=== PATIENT | male | born 1950 | race Caucasian/White ===

== ENCOUNTER 2020-04-26 08:35 | Outpatient (REF) | payer MEDICARE, OTHER, SELFPAY ==
[2020-04-26 09:55] LABS: Basophils Percent Auto 0.4 % (0-2); Hemoglobin 15.1 g/dl (14.0-18.0); Imm Gran Abs Auto 0.02 X10*3/uL (0.00-0.03); Imm Gran Pct Auto 0.3 % (0.0-0.4); Red Cell Distribution Width 13.2 % (11.0-16.0)
[2020-04-26 09:57] LABS: Eosinophils Absolute Auto 0.1 X10*3/uL (0.0-0.4); Eosinophils Percent Auto 0.9 % (0-4); Hematocrit 46.7 % (42-52); Lymphocytes Absolute Auto 1.8 X10*3/uL (1.2-4.9); Lymphocytes Percent Auto 23.3 % (20-40); Mean Corpuscular HGB Conc 32.3 g/dl (31.0-36.0); Mean Corpuscular Hemoglobin 30.6 pg (27.0-33.0); Mean Corpuscular Volume 94.5 fL (80-98); Monocytes Absolute Auto 0.8 X10*3/uL (0.1-1.2); Monocytes Percent Auto 10.8 % (2-11); Neutrophils Percent Auto 64.3 % (45-73); Platelet Count 184 X10*3/uL (160-400); Red Blood Count 4.94 X10*6/uL (4.60-5.80); White Blood Count 7.7 X10*3/uL (4.8-10.8)
[2020-04-26 10:04] LABS: MANUAL DIFF FLAG NO
[2020-04-26 10:26] LABS: Alanine Aminotransferase 37 U/L (0-40); Albumin Level 4.1 g/dL (3.5-5.0); Alkaline Phosphatase 76 U/L (39-117); Anion Gap 12 (12-20); Aspartate Amino Transferase 25 U/L (5-37); Bilirubin Total 0.6 mg/dL (0.0-1.0); Blood Urea Nitrogen 23 mg/dL (9-16); Calcium 8.9 mg/dL (8.4-10.2); Carbon Dioxide 29 mmol/L (22-29); Chloride 103 mmol/L (96-108); Cholesterol 193 mg/dL; Estimated Glomerular Filt Rate > 60; Glucose Fasting 90 mg/dL (60-99); HDL Cholesterol 46 mg/dL; LDL Cholesterol Calculated 104 mg/dl; Potassium 4.3 mmol/l (3.3-5.1); Sodium 140 mmol/L (135-145); Total Protein 6.6 g/dL (6.5-8.0); Triglycerides 216 mg/dL
[2020-04-26 10:27] LABS: Glucose Urine UA NEG (NEG); Leukocyte Esterase Urine NEG (NEG); Nitrite Urine NEG (NEG); Specific Gravity - Urine 1.025 (1.005-1.025); Urine Blood NEG (NEG); Urine Ketones NEG (NEG); Urine Protein NEG (NEG-TRACE)
[2020-04-26 10:29] LABS: Appearance Urine CLEAR; Color Urine YELLOW
[2020-04-26 10:32] LABS: Estimated Average Glucose 117 mg/dL; Hemoglobin A1C 151.0047 umol/L; Hemoglobin A1c % 5.7 %
[2020-04-26 10:34] LABS: TSH reflex Free T4 1.16 mIU/mL (0.32-4.0); Vitamin D 25-OH Total 44.3 ng/mL (>30)
== END 2020-04-26 08:36 | disposition home or self-care (01) ==
LOC: HO.LAB 08:35
PROVIDERS: PCP Internal Medicine; Visit Provider Internal Medicine
DX: E78.5 Hyperlipidemia, unspecified (principal); I10 Essential (primary) hypertension; R73.01 Impaired fasting glucose; I25.10 Atherosclerotic heart disease of native coronary artery without angina pectoris; K21.9 Gastro-esophageal reflux disease without esophagitis; E55.9 Vitamin D deficiency, unspecified; E66.3 Overweight
CPT/HCPCS: 36415; 80053; 80061; 81003; 82306; 83036; 84443; 85025; 87086

== ENCOUNTER 2020-08-23 06:56 | Outpatient (REF) | payer MEDICARE, OTHER, SELFPAY ==
[2020-08-23 08:25] LABS: MANUAL DIFF FLAG SCAN; Mean Corpuscular Hemoglobin 30.6 pg (27.0-33.0); Platelet Count 174 X10*3/uL (160-400); Red Cell Distribution Width 13.4 % (11.0-16.0); SCAN SMEAR FLAG 1
[2020-08-23 08:27] LABS: Basophils Percent Auto 0.4 % (0-2); Eosinophils Absolute Auto 0.1 X10*3/uL (0.0-0.4); Hemoglobin 15.5 g/dl (14.0-18.0); Imm Gran Abs Auto 0.02 X10*3/uL (0.00-0.03); Imm Gran Pct Auto 0.2 % (0.0-0.4); Lymphocytes Absolute Auto 2.1 X10*3/uL (1.2-4.9); Lymphocytes Percent Auto 25.1 % (20-40); Mean Corpuscular HGB Conc 31.6 g/dl (31.0-36.0); Mean Corpuscular Volume 96.8 fL (80-98); Mean Platelet Volume 13.1 fL (9.4-12.4); Neutrophils Percent Auto 61.3 % (45-73); Red Blood Count 5.06 X10*6/uL (4.60-5.80); White Blood Count 8.2 X10*3/uL (4.8-10.8)
[2020-08-23 08:35] LABS: PLT ABN DIST 1
[2020-08-23 08:36] LABS: Glucose Urine UA NEG (NEG); Leukocyte Esterase Urine NEG (NEG); Nitrite Urine NEG (NEG); PH 5.5 (5.0-8.0); Specific Gravity - Urine >= 1.030 (1.005-1.025); Urine Blood NEG (NEG); Urine Ketones NEG (NEG); Urine Protein NEG (NEG-TRACE)
[2020-08-23 08:39] LABS: Appearance Urine CLEAR; Color Urine YELLOW
[2020-08-23 09:42] LABS: Alanine Aminotransferase 52 U/L (0-40); Albumin Level 4.1 g/dL (3.5-5.0); Alkaline Phosphatase 94 U/L (39-117); Anion Gap 12 (12-20); Aspartate Amino Transferase 35 U/L (5-37); Bilirubin Total 0.4 mg/dL (0.0-1.0); Blood Urea Nitrogen 21 mg/dL (9-16); Calcium 9.1 mg/dL (8.4-10.2); Carbon Dioxide 31 mmol/L (22-29); Chloride 106 mmol/L (96-108); Cholesterol 184 mg/dL; Estimated Glomerular Filt Rate > 60; Glucose Fasting 98 mg/dL (60-99); HDL Cholesterol 50 mg/dL; LDL Cholesterol Calculated 97 mg/dl; Potassium 5.1 mmol/L (3.3-5.1); Sodium 144 mmol/L (135-145); Total Protein 6.6 g/dL (6.5-8.0); Triglycerides 188 mg/dL
[2020-08-23 09:54] LABS: Vitamin D 25-OH Total 41.2 ng/mL (>30)
[2020-08-23 09:55] LABS: TSH reflex Free T4 1.53 uIU/mL (0.32-4.0)
[2020-08-23 09:59] LABS: Estimated Average Glucose 111 mg/dL; Hemoglobin A1c % 5.5 %
== END 2020-08-23 06:57 | disposition home or self-care (01) ==
LOC: HO.LAB 06:56
PROVIDERS: PCP Internal Medicine; Visit Provider Internal Medicine
DX: I10 Essential (primary) hypertension (principal); E78.00 Pure hypercholesterolemia, unspecified; F17.200 Nicotine dependence, unspecified, uncomplicated; I25.10 Atherosclerotic heart disease of native coronary artery without angina pectoris; K21.9 Gastro-esophageal reflux disease without esophagitis; R73.01 Impaired fasting glucose; E66.3 Overweight; E55.9 Vitamin D deficiency, unspecified; Z85.46 Personal history of malignant neoplasm of prostate
CPT/HCPCS: 36415; 80053; 80061; 81003; 82306; 83036; 84443; 85025

== ENCOUNTER 2020-12-22 07:10 | Outpatient (REF) | payer MEDICARE, OTHER, SELFPAY ==
[2020-12-22 09:02] LABS: Glucose Urine UA NEG (NEG); Leukocyte Esterase Urine NEG (NEG); Nitrite Urine NEG (NEG); Specific Gravity - Urine >= 1.030 (1.005-1.025); Urine Blood NEG (NEG); Urine Ketones NEG (NEG); Urine Protein NEG (NEG-TRACE)
[2020-12-22 09:05] LABS: Appearance Urine CLEAR; Color Urine YELLOW
[2020-12-22 09:08] LABS: Basophils Percent Auto 0.3 % (0-2); Eosinophils Absolute Auto 0.1 X10*3/uL (0.0-0.4); Eosinophils Percent Auto 1.5 % (0-4); Hematocrit 46.7 % (42-52); Imm Gran Abs Auto 0.02 X10*3/uL (0.00-0.03); Imm Gran Pct Auto 0.3 % (0.0-0.4); Lymphocytes Absolute Auto 1.7 X10*3/uL (1.2-4.9); Lymphocytes Percent Auto 24.9 % (20-40); MANUAL DIFF FLAG SCAN; Mean Corpuscular HGB Conc 32.1 g/dl (31.0-36.0); Mean Corpuscular Hemoglobin 29.9 pg (27.0-33.0); Mean Corpuscular Volume 93.2 fL (80-98); Monocytes Absolute Auto 0.8 X10*3/uL (0.1-1.2); Monocytes Percent Auto 12.2 % (2-11); Neutrophils Absolute Auto 4.2 X10*3/uL (2.0-8.3); Neutrophils Percent Auto 60.8 % (45-73); PLT CLUMP 1; Red Blood Count 5.01 X10*6/uL (4.60-5.80); Red Cell Distribution Width 13.3 % (11.0-16.0); SCAN SMEAR FLAG 1
[2020-12-22 09:29] LABS: Platelet Count 157 X10*3/uL (160-400); SLIDE REVIEW VERIFIED; White Blood Count 6.9 X10*3/uL (4.8-10.8)
[2020-12-22 09:40] LABS: Alanine Aminotransferase 33 U/L (0-40); Alkaline Phosphatase 80 U/L (39-117); Anion Gap 12 (12-20); Aspartate Amino Transferase 24 U/L (5-37); Bilirubin Total 0.5 mg/dL (0.0-1.0); Blood Urea Nitrogen 22 mg/dL (9-16); Calcium 8.8 mg/dL (8.4-10.2); Carbon Dioxide 25 mmol/L (22-29); Chloride 107 mmol/L (96-108); Cholesterol 179 mg/dL; Estimated Glomerular Filt Rate > 60; Glucose Fasting 95 mg/dL (60-99); HDL Cholesterol 42 mg/dL; LDL Cholesterol Calculated 92 mg/dl; Potassium 4.2 mmol/L (3.3-5.1); Sodium 140 mmol/L (135-145); Total Protein 6.3 g/dL (6.5-8.0); Triglycerides 229 mg/dL
[2020-12-22 10:03] LABS: TSH reflex Free T4 1.52 uIU/mL (0.32-4.0); Vitamin D 25-OH Total 43.6 ng/mL (>30)
== END 2020-12-22 07:11 | disposition home or self-care (01) ==
LOC: HO.LAB 07:10
PROVIDERS: PCP Internal Medicine; Visit Provider Internal Medicine
DX: I10 Essential (primary) hypertension (principal); K21.9 Gastro-esophageal reflux disease without esophagitis; I25.10 Atherosclerotic heart disease of native coronary artery without angina pectoris; F17.200 Nicotine dependence, unspecified, uncomplicated; E78.00 Pure hypercholesterolemia, unspecified; R73.01 Impaired fasting glucose; E66.3 Overweight; E55.9 Vitamin D deficiency, unspecified
CPT/HCPCS: 36415; 80053; 80061; 81003; 82306; 84443; 85025

== ENCOUNTER 2021-04-26 07:29 | Outpatient (REF) | payer MEDICARE, OTHER, SELFPAY ==
[2021-04-26 08:01] LABS: Mean Corpuscular HGB Conc 32.3 g/dl (31.0-36.0); Mean Corpuscular Hemoglobin 30.3 pg (27.0-33.0); Red Cell Distribution Width 13.1 % (11.0-16.0); SCAN SMEAR FLAG 1
[2021-04-26 08:03] LABS: Basophils Percent Auto 0.3 % (0-2); Eosinophils Absolute Auto 0.1 X10*3/uL (0.0-0.4); Eosinophils Percent Auto 1.2 % (0-4); Hematocrit 46.4 % (42.0-52.0); Imm Gran Abs Auto 0.01 X10*3/uL (0.00-0.03); Imm Gran Pct Auto 0.2 % (0.0-0.4); Lymphocytes Absolute Auto 1.7 X10*3/uL (1.2-4.9); MANUAL DIFF FLAG SCAN; Mean Corpuscular Volume 93.7 fL (80.0-98.0); Monocytes Absolute Auto 0.7 X10*3/uL (0.1-1.2); Monocytes Percent Auto 11.4 % (2-11); Neutrophils Percent Auto 60.9 % (45-73); PLT CLUMP 1; Red Blood Count 4.95 X10*6/uL (4.60-5.80)
[2021-04-26 08:09] LABS: PLT ABN DIST 1; White Blood Count 6.5 X10*3/uL (4.8-10.8)
[2021-04-26 08:16] LABS: Estimated Average Glucose 120 mg/dL; Hemoglobin A1c % 5.8 %
[2021-04-26 08:24] LABS: Platelet Count 161 X10*3/uL (160-400); SLIDE REVIEW VERIFIED
[2021-04-26 08:28] LABS: Alanine Aminotransferase 37 U/L (0-40); Alkaline Phosphatase 100 U/L (39-117); Anion Gap 13 (12-20); Aspartate Amino Transferase 27 U/L (5-37); Bilirubin Total 0.7 mg/dL (0.0-1.0); Blood Urea Nitrogen 17 mg/dL (9-16); Calcium 9.2 mg/dL (8.4-10.2); Carbon Dioxide 27 mmol/L (22-29); Chloride 104 mmol/L (96-108); Cholesterol 152 mg/dL; Estimated Glomerular Filt Rate > 60; Glucose Fasting 94 mg/dL (60-99); HDL Cholesterol 35 mg/dL; LDL Cholesterol Calculated 81 mg/dl; Potassium 4.2 mmol/L (3.3-5.1); Sodium 140 mmol/L (135-145); Total Protein 6.5 g/dL (6.5-8.0); Triglycerides 182 mg/dL
[2021-04-26 08:33] LABS: Appearance Urine CLEAR; Color Urine YELLOW; Glucose Urine UA NEG (NEG); Leukocyte Esterase Urine NEG (NEG); Nitrite Urine NEG (NEG); PH 5.5 (5.0-8.0); Specific Gravity - Urine >= 1.030 (1.005-1.025); Urine Blood NEG (NEG); Urine Ketones NEG (NEG); Urine Protein NEG (NEG-TRACE)
[2021-04-26 08:48] LABS: TSH reflex Free T4 1.64 uIU/mL (0.32-4.0); Vitamin D 25-OH Total 48.2 ng/mL (>30)
== END 2021-04-26 07:30 | disposition home or self-care (01) ==
LOC: HO.LAB 07:29
PROVIDERS: PCP Internal Medicine; Visit Provider Internal Medicine
DX: R73.01 Impaired fasting glucose (principal); I10 Essential (primary) hypertension; E78.00 Pure hypercholesterolemia, unspecified; E55.9 Vitamin D deficiency, unspecified
CPT/HCPCS: 36415; 80053; 80061; 81003; 82306; 83036; 84443; 85025

== ENCOUNTER 2021-09-01 06:02 | Outpatient (REF) | payer MEDICARE, OTHER, SELFPAY ==
[2021-09-01 07:29] LABS: Appearance Urine CLEAR; Color Urine YELLOW; Glucose Urine UA NEG (NEG); Leukocyte Esterase Urine NEG (NEG); Nitrite Urine NEG (NEG); Specific Gravity - Urine >= 1.030 (1.005-1.025); Urine Blood NEG (NEG); Urine Ketones NEG (NEG); Urine Protein NEG (NEG-TRACE)
[2021-09-01 07:34] LABS: Basophils Percent Auto 0.5 % (0-2); Eosinophils Absolute Auto 0.1 X10*3/uL (0.0-0.4); Eosinophils Percent Auto 0.7 % (0-4); Hematocrit 45.9 % (42.0-52.0); Hemoglobin 14.2 g/dl (14.0-18.0); Imm Gran Abs Auto 0.03 X10*3/uL (0.00-0.03); Imm Gran Pct Auto 0.3 % (0.0-0.4); Lymphocytes Absolute Auto 2.1 X10*3/uL (1.2-4.9); Lymphocytes Percent Auto 23.6 % (20-40); MANUAL DIFF FLAG SCAN; Mean Corpuscular HGB Conc 30.9 g/dl (31.0-36.0); Mean Corpuscular Hemoglobin 29.4 pg (27.0-33.0); Mean Platelet Volume 13.5 fL (9.4-12.4); Monocytes Absolute Auto 0.8 X10*3/uL (0.1-1.2); Monocytes Percent Auto 9.6 % (2-11); Neutrophils Absolute Auto 5.7 x10*3/uL (2.0-8.3); Neutrophils Percent Auto 65.3 % (45-73); PLT CLUMP 1; Red Blood Count 4.83 X10*6/uL (4.60-5.80); Red Cell Distribution Width 13.3 % (11.0-16.0); SCAN SMEAR FLAG 1
[2021-09-01 07:55] LABS: Estimated Average Glucose 111 mg/dL; Hemoglobin A1c % 5.5 %
[2021-09-01 07:56] LABS: White Blood Count 8.7 X10*3/uL (4.8-10.8)
[2021-09-01 07:57] LABS: Platelet Count 142 X10*3/uL (160-400)
[2021-09-01 07:59] LABS: SLIDE REVIEW VERIFIED
[2021-09-01 08:00] LABS: Alanine Aminotransferase 30 U/L (0-40); Albumin Level 3.8 g/dL (3.5-5.0); Alkaline Phosphatase 92 U/L (39-117); Anion Gap 14 (12-20); Aspartate Amino Transferase 25 U/L (5-37); Bilirubin Total 0.6 mg/dL (0.0-1.0); Blood Urea Nitrogen 21 mg/dL (9-16); Calcium 8.9 mg/dL (8.4-10.2); Carbon Dioxide 26 mmol/L (22-29); Chloride 106 mmol/L (96-108); Cholesterol 154 mg/dL; Estimated Glomerular Filt Rate > 60; Glucose Fasting 83 mg/dL (60-99); HDL Cholesterol 34 mg/dL; LDL Cholesterol Calculated 83 mg/dl; Potassium 4.6 mmol/L (3.3-5.1); Sodium 141 mmol/L (135-145); Total Protein 6.5 g/dL (6.5-8.0); Triglycerides 186 mg/dL
[2021-09-01 08:23] LABS: Vitamin D 25-OH Total 60.7 ng/mL (>30)
== END 2021-09-01 06:03 | disposition home or self-care (01) ==
LOC: HO.LAB 06:02
PROVIDERS: PCP Internal Medicine; Visit Provider Internal Medicine
DX: R73.01 Impaired fasting glucose (principal); E55.9 Vitamin D deficiency, unspecified; I10 Essential (primary) hypertension; E78.00 Pure hypercholesterolemia, unspecified
CPT/HCPCS: 36415; 80053; 80061; 81003; 82306; 83036; 85025

== ENCOUNTER 2022-04-21 07:26 | Outpatient (REF) | payer MEDICARE, OTHER, SELFPAY ==
[2022-04-21 08:29] LABS: Estimated Average Glucose 114 mg/dL; Hemoglobin A1c % 5.6 %
[2022-04-21 08:54] LABS: Alanine Aminotransferase 31 U/L (0-40); Albumin Level 3.9 g/dL (3.5-5.0); Alkaline Phosphatase 103 U/L (39-117); Anion Gap 11 (12-20); Aspartate Amino Transferase 22 U/L (5-37); Bilirubin Total 0.7 mg/dL (0.0-1.0); Blood Urea Nitrogen 22 mg/dL (9-16); Calcium 9.1 mg/dL (8.4-10.2); Carbon Dioxide 30 mmol/L (22-29); Chloride 102 mmol/L (96-108); Cholesterol 175 mg/dL; Estimated Glomerular Filt Rate > 60; Glucose Fasting 90 mg/dL (60-99); HDL Cholesterol 35 mg/dL; LDL Cholesterol Calculated 99 mg/dl; Potassium 4.2 mmol/L (3.3-5.1); Sodium 139 mmol/L (135-145); Total Protein 6.3 g/dL (6.5-8.0); Triglycerides 205 mg/dL
[2022-04-21 09:01] LABS: Appearance Urine Clear; Color Urine Yellow; Glucose Urine UA Negative (Negative); Leukocyte Esterase Urine Trace (Negative); Nitrite Urine Negative (Negative); PH 6.5 (5.0-9.0); UMIC TRIGGER UACC YES; Urine Blood Negative (Negative); Urine Ketones Negative (Negative); Urine Protein Negative (Neg-Trace)
[2022-04-21 09:07] LABS: Bacteria Urine None Seen (None Seen); Hyaline Casts Urine 0-2 /LPF (0-2); RBC Urine 0-2 /HPF (0-2); Squamous Epithelial Cell Urine 0-2 /HPF (0-2); WBC Urine 0-5 /HPF (0-5)
== END 2022-04-21 07:27 | disposition home or self-care (01) ==
LOC: HO.LAB 07:26
PROVIDERS: PCP Internal Medicine; Visit Provider Internal Medicine
DX: E78.00 Pure hypercholesterolemia, unspecified (principal); R73.01 Impaired fasting glucose
CPT/HCPCS: 36415; 80053; 80061; 81001; 81003; 83036

== ENCOUNTER 2022-09-04 06:50 | Outpatient (REF) | payer MEDICARE, OTHER, SELFPAY ==
[2022-09-04 07:01] LABS: MANUAL DIFF FLAG NO
[2022-09-04 07:38] LABS: Basophils Percent Auto 0.3 % (0-2); Eosinophils Absolute Auto 0.1 X10*3/uL (0.0-0.4); Eosinophils Percent Auto 1.5 % (0-4); Hematocrit 48.4 % (42.0-52.0); Hemoglobin 15.3 g/dl (14.0-18.0); Imm Gran Abs Auto 0.02 X10*3/uL (0.00-0.03); Imm Gran Pct Auto 0.3 % (0.0-0.4); Lymphocytes Absolute Auto 1.8 X10*3/uL (1.2-4.9); Lymphocytes Percent Auto 24.5 % (20-40); Mean Corpuscular HGB Conc 31.6 g/dl (31.0-36.0); Mean Corpuscular Hemoglobin 29.7 pg (27.0-33.0); Mean Corpuscular Volume 93.8 fL (80.0-98.0); Mean Platelet Volume 12.7 fL (9.4-12.4); Monocytes Absolute Auto 0.9 X10*3/uL (0.1-1.2); Monocytes Percent Auto 11.8 % (2-11); Neutrophils Absolute Auto 4.6 x10*3/uL (2.0-8.3); Neutrophils Percent Auto 61.6 % (45-73); Platelet Count 188 X10*3/uL (160-400); Red Blood Count 5.16 X10*6/uL (4.60-5.80); Red Cell Distribution Width 13.5 % (11.0-16.0); White Blood Count 7.4 X10*3/uL (4.8-10.8)
[2022-09-04 08:11] LABS: Alanine Aminotransferase 28 U/L (0-40); Albumin Level 4.1 g/dL (3.5-5.0); Alkaline Phosphatase 90 U/L (39-117); Anion Gap 11 (12-20); Aspartate Amino Transferase 22 U/L (5-37); Bilirubin Total 0.6 mg/dL (0.0-1.0); Blood Urea Nitrogen 22 mg/dL (9-16); Calcium 8.8 mg/dL (8.4-10.2); Carbon Dioxide 26 mmol/L (22-29); Chloride 109 mmol/L (96-108); Cholesterol 195 mg/dL; Estimated Glomerular Filt Rate > 60; Glucose Fasting 98 mg/dL (60-99); HDL Cholesterol 38 mg/dL; LDL Cholesterol Calculated 115 mg/dl; Potassium 4.4 mmol/L (3.3-5.1); Sodium 142 mmol/L (135-145); Total Protein 6.4 g/dL (6.5-8.0); Triglycerides 210 mg/dL
[2022-09-04 08:12] LABS: Appearance Urine Clear; Color Urine Dark Yellow; Glucose Urine UA Negative (Negative); Leukocyte Esterase Urine Small (1+) (Negative); Nitrite Urine Negative (Negative); PH 5.5 (5.0-9.0); UMIC TRIGGER UACC YES; Urine Blood Negative (Negative); Urine Ketones Negative (Negative); Urine Protein Negative (Neg-Trace)
[2022-09-04 08:17] LABS: Bacteria Urine None Seen (None Seen); Hyaline Casts Urine 0-2 /LPF (0-2); RBC Urine 0-2 /HPF (0-2); Squamous Epithelial Cell Urine 0-2 /HPF (0-2); UACC Culture Trigger YES
[2022-09-04 08:22] LABS: TSH reflex Free T4 1.62 uIU/mL (0.32-4.0); Vitamin D 25-OH Total 51.6 ng/mL (>30)
== END 2022-09-04 06:51 | disposition home or self-care (01) ==
LOC: HO.LAB 06:50
PROVIDERS: PCP Internal Medicine; Visit Provider Internal Medicine
DX: E55.9 Vitamin D deficiency, unspecified (principal); E78.00 Pure hypercholesterolemia, unspecified; I10 Essential (primary) hypertension; R30.0 Dysuria
CPT/HCPCS: 36415; 80053; 80061; 81001; 82306; 84443; 85025; 87086

== ENCOUNTER 2022-09-25 12:12 | Outpatient (REF) | payer MEDICARE, OTHER, SELFPAY ==
--- NOTE | ~2022-09-25 | US_ITS ---
EXAMINATION: US PELVIS LIMITED (BLADDER) CLINICAL INFORMATION: Pelvic and perineal pain. COMPARISON: CT abdomen and pelvis without contrast dated 08/03/2017. Renals only ultrasounds dated 07/02/2017 and 12/25/2016. KUBs dated 12/06/2016 at 08/09/2016. TECHNIQUE: Real-time imaging of the bladder. FINDINGS: BLADDER: Well distended. Bilateral ureteral jets are demonstrated. Prevoid bladder volume is 368.2 mL. There is no postvoid residual. There is mild bladder wall thickening. The prostate gland is not visualized consistent with history of prostatectomy. US/US bladder IMPRESSION: 1. Mild bladder wall thickening. 2. Normal bilateral ureteral jets seen. 3. The prostate gland is not visualized consistent with history of prostatectomy.
== END 2022-09-25 12:13 | disposition home or self-care (01) ==
LOC: HO.US 12:12
PROVIDERS: PCP Internal Medicine; Visit Provider Internal Medicine
DX: R10.2 Pelvic and perineal pain (principal); R32 Unspecified urinary incontinence
CPT/HCPCS: 76857

== ENCOUNTER 2022-11-22 06:08 | Outpatient (REF) | payer MEDICARE, OTHER, SELFPAY | END 2022-11-22 06:09 | disposition home or self-care (01) | LOC: HO.LAB 06:08 | PROVIDERS: PCP Internal Medicine; Visit Provider Internal Medicine | DX: I10 Essential (primary) hypertension (principal); E55.9 Vitamin D deficiency, unspecified; R73.01 Impaired fasting glucose; E78.00 Pure hypercholesterolemia, unspecified | CPT/HCPCS: 36415; 80053; 80061; 81001; 82306; 83036; 84443; 85025 ==

== ENCOUNTER 2023-01-29 03:23 | Emergency (ER) | payer MEDICARE, OTHER, SELFPAY ==
--- NOTE | 2023-01-29 | ECG_ITS ---
Test Reason : CP Blood Pressure : / mmHG Vent. Rate : 086 BPM Atrial Rate : 086 BPM P-R Int : 180 ms QRS Dur : 090 ms QT Int : 354 ms P-R-T Axes : 036 035 027 degrees QTc Int : 423 ms Normal sinus rhythm Normal ECG When compared with ECG of 15-AUG-2017 07:48, No significant change was found Referred By: Generic ED Physician Electronically Signed By:ABBY AMBROCIO
--- NOTE | ~2023-01-29 | XR_ITS ---
EXAMINATION: XR CHEST CLINICAL INFORMATION: Chest pain COMPARISON: 01/23/2013. TECHNIQUE: Frontal view of the chest was obtained. FINDINGS: The cardiomediastinal silhouette is stable. There is mild lower lung field increased markings. There is no focal lung consolidation or pleural effusion. The bony structures and soft tissues are unremarkable. XR/XR chest 1V IMPRESSION: No active cardiopulmonary disease.
[2023-01-29 03:35] VITALS: BP 165/83; PULSE 89; RESP 24; O2SAT 96; BMI 36.5
--- NOTE | 2023-01-29 03:38 | PC.NURSE ---
pt brought back from waiting room, reporting chest pain since 2am (approximately 1.5 hours now) describing it as a dull pressure in upper sternum. Patient had previous NM, 30 years prior with stent placement. Pt reports 4/10 pain at this time. Henrique PCT at bedside drawing blood. Pt normal sinus 84 on monitor
[2023-01-29 03:45] LABS: Basophils Percent Auto 0.3 % (0-2); Eosinophils Absolute Auto 0.1 X10*3/uL (0.0-0.4); Eosinophils Percent Auto 1.1 % (0-4); Hemoglobin 15.5 g/dl (14.0-18.0); Imm Gran Abs Auto 0.02 X10*3/uL (0.00-0.03); Imm Gran Pct Auto 0.2 % (0.0-0.4); Lymphocytes Absolute Auto 2.1 X10*3/uL (1.2-4.9); Lymphocytes Percent Auto 23.9 % (20-40); MANUAL DIFF FLAG NO; Mean Corpuscular Hemoglobin 30.2 pg (27.0-33.0); Mean Corpuscular Volume 91.4 fL (80.0-98.0); Monocytes Percent Auto 11.7 % (2-11); Neutrophils Absolute Auto 5.5 x10*3/uL (2.0-8.3); Neutrophils Percent Auto 62.8 % (45-73); Platelet Count 207 X10*3/uL (160-400); Red Blood Count 5.14 X10*6/uL (4.60-5.80); Red Cell Distribution Width 13.6 % (11.0-16.0); White Blood Count 8.8 X10*3/uL (4.8-10.8)
[2023-01-29 04:02] LABS: Anion Gap 14 (12-20); Blood Urea Nitrogen 20 mg/dL (9-16); Calcium 9.1 mg/dL (8.4-10.2); Carbon Dioxide 24 mmol/L (22-29); Chloride 109 mmol/L (96-108); Creatinine Clr Calc Pharmacy 98.1; Estimated Glomerular Filt Rate > 60; Glucose Random 107 mg/dL (60-115); Sodium 143 mmol/L (135-145)
[2023-01-29 04:13] LABS: Troponin-I High Sensitivity < 2.7 ng/L (<3.5-35.0)
--- NOTE | 2023-01-29 04:22 | ED_ITS ---
HPI - Chest Pain General Chief Complaint: Chest Pain Stated Complaint: Chest Pain Time Seen by Provider: 01/29/23 04:10 Source: patient Mode of arrival: ambulatory Limitations: no limitations History of Present Illness HPI narrative: Patient s/p coronary artery disease status post RCA stent about 30 years ago on aspirin complain of chest of discomfort since 0200 no shortness of breath no nausea no vomiting. Patient took 2 baby aspirin prior to arrival pain is localized to mid chest increases on deep inspiration patient had previous stress and echo last year was normal. Patient does vape and has been having heart burn more often lately Related Data Home Medications Medication Instructions Recorded Confirmed aspirin 81 mg tablet,delayed 81 mg PO DAILY 04/28/20 11/22/22 release cholecalciferol (vitamin D3) 50 50 mcg PO DAILY 12/08/20 11/22/22 mcg (2,000 unit) tablet multivitamin 1 tab PO DAILY 12/08/20 11/22/22 diphenhydramine HCl 25 mg capsule 25 mg PO BEDTIME PRN 04/24/22 11/22/22 (Benadryl) Previous Rx's Medication Instructions Recorded fluticasone propionate 50 1 spray intranasal DAILY PRN nasal 04/24/22 mcg/actuation nasal congestion #16 grams spray,suspension metoprolol succinate 50 mg 150 mg (3 x 50 mg) PO DAILY 90 07/14/22 tablet,extended release 24 hr days #270 tabs atorvastatin 40 mg tablet 40 mg PO DAILY #90 tabs 08/17/22 mirabegron 50 mg tablet,extended 50 mg PO DAILY 30 days #30 tabs 11/22/22 release 24 hr naproxen 500 mg tablet 500 mg PO BID PRN pain 30 days #60 11/22/22 tabs benazepril 10 mg tablet 10 mg PO DAILY #90 tabs 01/15/23 pantoprazole 40 mg tablet,delayed 40 mg PO DAILY #30 tabs 01/29/23 release (Protonix) sucralfate 1 gram tablet 1 g PO BID #60 tabs 01/29/23 Allergies Allergy/AdvReac Type Severity Reaction Status Date / Time ciprofloxacin [From CIPRO] Allergy Severe ERYTHEMA Verified 01/29/23 03:35 MULTIFORMA Sulfa (Sulfonamide Allergy Intermediate RASH Verified 01/29/23 03:35 Antibiotics) [SULFA (SULFONAMIDE ANTIBIOTICS)] Review of Systems 2 Review of Systems: Yes all other systems are reviewed and are negative [facility] Past Medical History Medical History Obesity (BMI 30-39.9) External otitis of left ear Vaccine counseling Epidermoid cyst Left leg pain Overweight (BMI 25.0-29.9) Smoker History of prostate cancer Vitamin D deficiency Osteoarthritis of right hip Lumbar degenerative disc disease GERD without esophagitis Impaired fasting glucose COPD (chronic obstructive pulmonary disease) Pure hypercholesterolemia Benign essential hypertension Coronary artery disease Surgical History History of bilateral cataract extraction History of lithotripsy History of angioplasty (~1995) History of prostatectomy Family History Family History Father Lung cancer Mother Myocardial infarction CVD (cardiovascular disease) Social History Social History Housing: House Alcohol intake: current Alcohol intake frequency: holidays/special occasions only Patient Tobacco Use Status: Former Tobacco user Tobacco use type: Cigarette Smoked in Last 30 Days: No e-Cigarette/Vaping Use: Currently Using Second Hand Smoke Exposure: Yes Use of substances other than those prescribed or required for medical reasons: No Advance Directives: No Advance Directives Information Provided: Yes service: No Current occupational status: retired Cognitive needs: No Hearing needs: No Vision needs: Yes Physical Exam 2 Vital Signs: Vital Signs: Last Vital Signs Temp 98.0 F 01/29/23 06:44 Pulse 86 01/29/23 06:44 Resp 15 01/29/23 06:44 BP 152/89 H 01/29/23 06:44 Pulse Ox 98 01/29/23 06:44 O2 Del Method Room Air 01/29/23 06:44 BMI result Body Mass Index 36.5 Appearance: Alert. Oriented X3. No acute distress. Eyes: PERRLA, No Nystagmus ENT: Pharynx normal. Oral Mucosa moist Neck: Normal inspection. Neck supple. CVS: Normal heart rate and rhythm. Pulses normal. Respiratory: No respiratory distress. Equal air entry bilateral, no wheezing/rales/rhonchi Abdomen: Soft and nontender. Bowel sounds are present, no mass palpable, no CVA tenderness Skin: Skin warm and dry. Normal skin color. Normal skin turgor. Extremities: No lower extremity edema. No calf tenderness Neuro: Oriented X 3. No motor deficit. No sensory deficit.No cerebellar signs , cranial nerves II-XII intact Medications Administered Discontinued Medications Generic Name Dose Route Start Last Admin Trade Name Freq PRN Reason Stop Dose Admin Al Hydroxide/Mg Hydroxide 30 ml 01/29/23 06:22 01/29/23 06:40 Magnesium Hydrox/Alum Hydrox 30 Ml Oral.Susp PO 01/29/23 06:23 30 ml ONCE ONE Administration Nitroglycerin 1 inch 01/29/23 04:30 01/29/23 04:38 Nitroglycerin 2 % Oint 1 Gm Packet TRANSDERMA 01/29/23 04:31 1 inch ONCE ONE Administration Omeprazole 40 mg 01/29/23 06:43 01/29/23 06:47 Omeprazole 40 [address] Caps[address].Dr LEE 01/29/23 06:44 40 mg ONCE ONE Administration Medical Decision Making Medical Decision Making [facility] Narrative: Patient history of CAD came with mid chest pain history of GERD and sleep apnea? Pain increases on deep inspiration 2 sets of cardiac enzymes and 2 sets of negative EKG without any ischemic change patient responded to p.o. Maalox no response to nitroglycerin. Patient does not want to stay for observation for echo today will see his PCP and will follow with various exceptionalities teacher at this time patient feeling much comfortable ambulatory steady gait will discharge patient home Differential Diagnosis Differential Diagnoses: The differential diagnosis associated with the presentation includes acs/esophagitis/STEMI/non-STEMI Admission/Observation Consideration of admission/observation: Escalation of care including admission/observation considered Lab Data [facility] Lab Attestation statement: I reviewed the patient's lab results. 01/29/23 03:39 01/29/23 03:39 Labs: Lab Results 01/29/23 01/29/23 Range/Units 03:39 05:17 WBC 8.8 (4.8-10.8) X10*3/uL RBC 5.14 (4.60-5.80) X10*6/uL Hgb 15.5 (14.0-18.0) g/dl Hct 47.0 (42.0-52.0) % MCV 91.4 (80.0-98.0) fL MCH 30.2 (27.0-33.0) pg MCHC 33.0 (31.0-36.0) g/dl RDW 13.6 (11.0-16.0) % Plt Count 207 (160-400) X10*3/uL MPV 12.0 (9.4-12.4) fL Immature Gran % (Auto) 0.2 (0.0-0.4) % Neut % (Auto) 62.8 (45-73) % Lymph % (Auto) 23.9 (20-40) % Saline % (Auto) 11.7 H (2-11) % Eos % (Auto) 1.1 (0-4) % Baso % (Auto) 0.3 (0-2) % Lymph # (Auto) 2.1 (1.2-4.9) X10*3/uL Saline # (Auto) 1.0 (0.1-1.2) X10*3/uL Eos # (Auto) 0.1 (0.0-0.4) X10*3/uL Baso # (Auto) 0.0 (0.0-0.2) X10*3/uL Abs Immat Gran (auto) 0.02 (0.00-0.03) X10*3/uL Absolute Neuts (auto) 5.5 (2.0-8.3) x10*3/uL Absolute Nucleated RBC 0.000 (0.0-0.012) X10*3/uL Nucleated RBC % (auto) 0.0 (0.0-0.2) /100WBC Sodium 143 (135-145) mmol/L Potassium 4.0 (3.3-5.1) mmol/L Chloride 109 H (96-108) mmol/L Carbon Dioxide 24 (22-29) mmol/L Anion Gap 14 (12-20) BUN 20 H (9-16) mg/dL Creatinine 0.79 (0.5-1.4) mg/dL Estim Creat Clear Calc 98.1 Estimated GFR > 60 Random Glucose 107 (60-115) mg/dL Calcium 9.1 (8.4-10.2) mg/dL Troponin I High Sens < 2.7 < 2.7 (<3.5-35.0) ng/L B-Natriuretic Peptide < 10 (<100) pg/mL Independent Interpretation I performed an independent interpretation of an: EKG Interpretation: Numb sinus rhythm heart rate 86 beats per minute normal interval normal axis no acute ST-T changes no acute [place] Critical Care Time Critical Care Time Critical Care Time: Yes Total Critical Care Time: 40 Attestation: The patient was critically ill with a high probability of imminent or life threatening deterioration. I spent greater than 45 minutes of discontinuous time evaluating the patient,delivering critical care at the bedside, discussing and evaluating pertinent data with consultants. Critical care time does not include time spent performing separately billable procedures or teaching. Total time spent performing critical care was 40 minutes. Discharge Plan Discharge Clinical Impression: Chest pain, Chronic GERD Patient Disposition: Home, Self-Care Instructions: Chest Pain (ED), Gastroesophageal Reflux Disease (ED) Additional Instructions: Cause of it chest pain is not clear You have to follow-up with various exceptionalities teacher/PCP for further workup including stress echo and stress test Continue aspirin Medicine for acid reflux Call various exceptionalities teacher today Prescriptions: New pantoprazole [Protonix] 40 mg tablet,delayed release (DR/EC) 40 mg PO DAILY Qty: 30 0RF sucralfate 1 gram tablet 1 g PO BID Qty: 60 0RF No Action metoprolol succinate 50 mg tablet extended release 24 hr 150 mg PO DAILY 90 Days Qty: 270 3RF atorvastatin 40 mg tablet 40 mg PO DAILY Qty: 90 3RF benazepril 10 mg tablet 10 mg PO DAILY Qty: 90 0RF aspirin 81 mg tablet,delayed release (DR/EC) 81 mg PO DAILY multivitamin Tablet 1 tab PO DAILY cholecalciferol (vitamin D3) 50 mcg (2,000 unit) tablet 50 mcg PO DAILY diphenhydramine HCl [Benadryl] 25 mg capsule 25 mg PO BEDTIME PRN fluticasone propionate 50 mcg/actuation spray,suspension 1 spray intranasal DAILY PRN (Reason: nasal congestion) Qty: 16 5RF Rx Instructions: administer into each nostril Myrbetriq 50 mg tablet extended release 24 hr 50 mg PO DAILY 30 Days Qty: 30 3RF naproxen 500 mg tablet 500 mg PO BID PRN (Reason: pain) 30 Days Qty: 60 2RF Referrals: Higinio Mccullough MD [Physician] - 2 days Interventions: ED Discharge Assessment Last Done: 01/29/23 06:49 Discharge Date/Time: 01/29/23 06:50
[2023-01-29] MEDS: Nitroglycerin 2 % Oint 1 GM Packet 1 INCH TRANSDERMA (04:38)
[2023-01-29 04:56] LABS: B Type Natriuretic Peptide < 10 pg/mL (<100)
[2023-01-29 05:43] LABS: Troponin-I High Sensitivity < 2.7 ng/L (<3.5-35.0)
--- NOTE | 2023-01-29 06:26 | ECG_ITS ---
Test Reason : CHEST PAIN Blood Pressure : / mmHG Vent. Rate : 083 BPM Atrial Rate : 083 BPM P-R Int : 184 ms QRS Dur : 084 ms QT Int : 356 ms P-R-T Axes : 021 036 038 degrees QTc Int : 418 ms Normal sinus rhythm Normal ECG When compared with ECG of 29-JAN-2023 03:26, No significant change was found Referred By: Juan Husain Electronically Signed By:ABBY AMBROCIO
[2023-01-29 06:36] VITALS: PULSE 86
[2023-01-29] MEDS: Magnesium Hydrox/Alum Hydrox 30 ML ORAL.SUSP PO (06:40)
[2023-01-29 06:44] VITALS: BP 152/89; PULSE 86; RESP 15; TEMP 36.7; O2SAT 98
[2023-01-29] MEDS: Omeprazole 40 MG CAPSULE.DR PO (06:47)
== END 2023-01-29 06:50 | disposition home or self-care (01) ==
PROVIDERS: Emergency Provider Internal Medicine
DX: R07.89 Other chest pain (principal); K21.9 Gastro-esophageal reflux disease without esophagitis; R06.02 Shortness of breath; Z87.891 Personal history of nicotine dependence; Z79.899 Other long term (current) drug therapy
CPT/HCPCS: 36415; 71045; 80048; 83880; 84484; 85025; 93005; 99284; 99285

== ENCOUNTER 2023-03-26 06:18 | Outpatient (REF) | payer MEDICARE, OTHER, SELFPAY ==
[2023-03-26 07:37] LABS: Appearance Urine Clear; Color Urine Yellow; Glucose Urine UA Negative (Negative); Leukocyte Esterase Urine Trace (Negative); Nitrite Urine Negative (Negative); PH 5.5 (5.0-9.0); UMIC TRIGGER UACC YES; Urine Blood Negative (Negative); Urine Ketones Negative (Negative); Urine Protein Negative (Neg-Trace)
[2023-03-26 07:40] LABS: Bacteria Urine None Seen (None Seen); Hyaline Casts Urine 0-2 /LPF (0-2); RBC Urine 0-2 /HPF (0-2); Squamous Epithelial Cell Urine 0-2 /HPF (0-2); WBC Urine 0-5 /HPF (0-5)
== END 2023-03-26 06:19 | disposition home or self-care (01) ==
LOC: HO.LAB 06:18
PROVIDERS: PCP Internal Medicine; Visit Provider Internal Medicine
DX: R30.0 Dysuria (principal)
CPT/HCPCS: 81001

== ENCOUNTER 2023-03-27 06:08 | Outpatient (REF) | payer MEDICARE, OTHER, SELFPAY ==
[2023-03-27 07:17] LABS: Basophils Percent Auto 0.4 % (0-2); Eosinophils Absolute Auto 0.1 X10*3/uL (0.0-0.4); Eosinophils Percent Auto 0.6 % (0-4); Hematocrit 46.6 % (42.0-52.0); Imm Gran Abs Auto 0.03 X10*3/uL (0.00-0.03); Imm Gran Pct Auto 0.4 % (0.0-0.4); Lymphocytes Absolute Auto 1.5 X10*3/uL (1.2-4.9); Lymphocytes Percent Auto 17.7 % (20-40); MANUAL DIFF FLAG SCAN; Mean Corpuscular HGB Conc 32.2 g/dl (31.0-36.0); Mean Corpuscular Hemoglobin 30.1 pg (27.0-33.0); Mean Corpuscular Volume 93.4 fL (80.0-98.0); Monocytes Absolute Auto 0.8 X10*3/uL (0.1-1.2); Monocytes Percent Auto 9.9 % (2-11); PLT CLUMP 1; Red Blood Count 4.99 X10*6/uL (4.60-5.80); Red Cell Distribution Width 13.2 % (11.0-16.0); SCAN SMEAR FLAG 1
[2023-03-27 07:22] LABS: Estimated Average Glucose 114 mg/dL; Hemoglobin A1c % 5.6 % (<6.0)
[2023-03-27 07:32] LABS: Platelet Count 161 X10*3/uL (160-400); White Blood Count 8.5 X10*3/uL (4.8-10.8)
[2023-03-27 07:33] LABS: SLIDE REVIEW VERIFIED
[2023-03-27 08:08] LABS: Alanine Aminotransferase 40 U/L (0-40); Alkaline Phosphatase 108 U/L (39-117); Anion Gap 13 (12-20); Aspartate Amino Transferase 30 U/L (5-37); Bilirubin Total 0.4 mg/dL (0.0-1.0); Blood Urea Nitrogen 12 mg/dL (9-16); Calcium 9.3 mg/dL (8.4-10.2); Carbon Dioxide 27 mmol/L (22-29); Chloride 107 mmol/L (96-108); Cholesterol 148 mg/dL (<200); Estimated Glomerular Filt Rate > 60; Glucose Fasting 102 mg/dL (60-99); HDL Cholesterol 35 mg/dL (>40); LDL Cholesterol Calculated 83 mg/dL (<100); Potassium 4.2 mmol/L (3.3-5.1); Sodium 143 mmol/L (135-145); Total Protein 6.9 g/dL (6.5-8.0); Triglycerides 152 mg/dL (<150)
[2023-03-27 08:24] LABS: TSH reflex Free T4 1.27 uIU/mL (0.32-4.0); Vitamin D 25-OH Total 51.3 ng/mL (>30)
== END 2023-03-27 06:09 | disposition home or self-care (01) ==
LOC: HO.LAB 06:08
PROVIDERS: PCP Internal Medicine; Visit Provider Internal Medicine
DX: E78.00 Pure hypercholesterolemia, unspecified (principal); E55.9 Vitamin D deficiency, unspecified; I10 Essential (primary) hypertension; R73.01 Impaired fasting glucose; R30.0 Dysuria
CPT/HCPCS: 36415; 80053; 80061; 82306; 83036; 84443; 85025

== ENCOUNTER 2023-03-27 09:23 | Outpatient (AMB) | payer MEDICARE, OTHER, SELFPAY ==
--- NOTE | 2023-03-27 09:28 | A.OFFPC_ITS ---
Vital Signs 03/27/23 09:29 03/27/23 10:07 Height 5 ft 8 in Weight 230 lb BMI 35.0 BP 172/88 H 170/90 H Blood Pressure Location Lt brachial Lt brachial Position Sitting Sitting Pulse 75 Pulse Source Pulse Oximeter Pulse Oximetry (%) 98 Oxygen Delivery Method Room Air Comment patient presently feeling very anxious Intake Visit Reasons: HTN, hyperlipidemia Intake Note: Patient here for a follow up htn, hyperlipidemia Insurance And Financial Services Agent Required: No Accompanied by: Self / Same As Patient Allergies ciprofloxacin [From CIPRO] Allergy (Severe, Verified 03/27/23 09:52) ERYTHEMA MULTIFORMA Sulfa (Sulfonamide Antibiotics) [SULFA (SULFONAMIDE ANTIBIOTICS)] Allergy (Intermediate, Verified 03/27/23 09:52) RASH Medication List - Last Reconciled 03/27/23 by Tha Adams MD aspirin 81 mg PO DAILY atorvastatin 40 mg PO DAILY benazepril 10 mg PO DAILY cholecalciferol (vitamin D3) 50 mcg PO DAILY diphenhydramine HCl (Benadryl) 25 mg PO BEDTIME PRN fluticasone propionate 50 mcg/actuation 1 spray intranasal DAILY PRN metoprolol succinate ER 150 mg (3 x 50 mg) PO DAILY 90 days mirabegron ER 50 mg PO DAILY 30 days multivitamin 1 tab PO DAILY naproxen 500 mg PO BID PRN 30 days pantoprazole (Protonix) 40 mg PO DAILY sucralfate 1 g PO BID Tobacco use date assessed: 11/22/22 Fall risk assessment: No Falls in past year Last assessed Fall Risk: 03/27/23 Dental Screening Dental Screen Date: 03/27/23 Did you have a dental visit in the last 12 months?: Yes Did you have a dental problem in the last 6 months where you did not have access to dental care?: No Was dental information given to patient?: Patient has dentist HPI HTN, hyperlipidemia HPI Details Patient comes in today for his follow up visit States that he went to the ER a couple of months ago on 01/29/23 for chest pains Work ups done were negative and he was sent home with Rx for Pantoprazole 40 mg QD, which he states has helped him a lot States that he currently feels okay He denies any headaches or dizziness Denies any further recurrence of his chest pains since; denies any shortness of breath No nausea/vomiting, no abdominal pain No change in bowel habits noted Needs a few of his Rx refilled Had his follow up labs done earlier this morning - to discuss his results [facility] Medical History Obesity (BMI 30-39.9) External otitis of left ear Vaccine counseling Epidermoid cyst Left leg pain Overweight (BMI 25.0-29.9) Smoker History of prostate cancer Vitamin D deficiency Osteoarthritis of right hip Lumbar degenerative disc disease GERD without esophagitis Impaired fasting glucose COPD (chronic obstructive pulmonary disease) Pure hypercholesterolemia Benign essential hypertension Coronary artery disease Surgical History History of bilateral cataract extraction History of lithotripsy History of angioplasty (~1995) History of prostatectomy Family History Father Lung cancer Mother Myocardial infarction CVD (cardiovascular disease) Social History Housing: House Alcohol intake: current Alcohol intake frequency: holidays/special occasions only Patient Tobacco Use Status: Former Tobacco user Tobacco use type: Cigarette e-Cigarette/Vaping Use: Currently Using Second Hand Smoke Exposure: Yes service: No Current occupational status: retired Cognitive needs: No Hearing needs: No Vision needs: Yes Questionnaire Thrive Questionnaire Date Thrive assessed: 11/22/22 CHRISTINA-7 AMB Questionnaire CHRISTINA-7 Date CHRISTINA - 7 assessed: 11/22/22 Source: Developed by Drs. Venkata Hanson, Shala Burdick, Bladimir Mora and colleagues, with an educational iliana from [employer]. Review of Systems Const Denies chills, Denies fatigue, Denies fever(s) and Denies headache(s) ENT Denies dysphagia, Denies dizziness, Denies otalgia, Denies headache(s), Denies neck pain, Denies odynophagia and Denies sore throat Card Denies chest pain, Denies palpitations and Denies dyspnea Resp Denies chest congestion, Denies cough and Denies dyspnea GI Denies abdominal pain, Denies constipation, Denies dysphagia, Denies heartburn, Denies diarrhea, Denies nausea, Denies odynophagia and Denies vomiting Denies dysuria, Reports nocturia, Reports urinary frequency and Reports urinary incontinence Musc Denies neck pain Skin/Breast Denies rash Neuro Denies dizziness and Denies headache(s) Endo Denies fatigue and Denies palpitations Physical exam (Primary Care) Vital Signs: Last Vital Signs Pulse 75 03/27/23 09:29 BP 170/90 H 03/27/23 10:07 Pulse Ox 98 03/27/23 09:29 Oxygen Delivery Method Room Air 03/27/23 09:29 BMI result Body Mass Index 35.0 Tobacco/Smoking Status: Tobacco use Status Tobacco use date assessed 11/22/22 03/27/23 09:31 Patient Tobacco Use Status Former Tobacco user 03/27/23 09:31 Tobacco use type Cigarette 03/27/23 09:31 e-Cigarette/Vaping Use Currently Using 03/27/23 09:31 Thrive Assessment: Date of Thrive Assessment Date Thrive assessed 11/22/22 03/27/23 09:31 Const General: no acute distress and alert HENMT Ears: TM's normal bilaterally and EAC's normal Throat: Yes posterior oropharynx normal and Yes tonsils normal (no TP congestion noted) Neck Neck: Yes no lymphadenopathy and Yes supple Carotids: normal carotid upstroke and no bruits Resp Auscultation: clear to auscultation bilaterally, no rales and no wheezes Cardio Rate: regular rate Rhythm: regular rhythm Heart sounds: no murmurs GI Palpation (GI): Soft to palpation and nontender Auscultation: normal bowel sounds Back/Spine/Pelvis Thoracic/Lumbar Spine: thoracic and lumbar spine normal to inspection Extrem General: Yes no clubbing, cyanosis or edema Office Procedures Flu Questionnaire Does the patient have a severe egg allergy?: No Immunizations flu vacc [id number] 6mos up(PF) 60 mcg(15 mcgx4)/0.5 mL IM syringe Performing Provider: Tha Adams MD [facility] Documented (not given) by: NANNETTE Correia on 03/27/23 09:32 Reason Not Given: Patient Refused Results Reviewed Results Reviewed: Laboratory Tests 03/26/23 03/27/23 03/27/23 06:25 06:21 06:21 WBC 8.5 Hgb 15.0 Hct 46.6 Plt Count 161 Sodium 143 Potassium 4.2 Creatinine 0.83 Estimated GFR > 60 Fasting Glucose 102 H Hemoglobin A1c % 5.6 Calcium 9.3 AST 30 ALT 40 Triglycerides 152 H Cholesterol 148 LDL Cholesterol, Calc 83 HDL Cholesterol 35 L 25-OH Vitamin D Total 51.3 TSH 1.27 Ur Specific [place] 1.020 Urine Protein Negative Urine Glucose (UA) Negative Urine Blood Negative Assessment and Plan Assessment & Plan (1) Coronary artery disease: Comment: S/P IA, angioplasty and stent insertion in 1995 Code(s): I25.10 - Atherosclerotic heart disease of [place] coronary artery without angina pectoris Qualifiers: Associated angina: without angina Coronary Disease-Associated Artery/Lesion type: [place] artery [place] vs. transplanted heart: [place] heart Qualified Code(s): I25.10 - Atherosclerotic heart disease of [place] coronary artery without angina pectoris Plan: S/P IA, angioplasty and stent insertion in 1995 - currently remains asymptomatic (has no anginal symptoms) Continue low dose Aspirin 81 mg QD Follow up with cardiology as scheduled (2) Carotid atherosclerosis: Code(s): I65.29 - Occlusion and stenosis of unspecified carotid artery Qualifiers: Laterality: unspecified laterality Qualified Code(s): I65.29 - Occlusion and stenosis of unspecified carotid artery Plan: Was sent previously for bilateral carotid US for further evaluation, per patient's request (mostly due to his dentist telling him that there were calcifications seen in his neck on routine dental x-rays) but insurance declined to cover his procedure Patient currently has no symptoms related to carotid stenosis (3) Pure hypercholesterolemia: Code(s): E78.00 - Pure hypercholesterolemia, unspecified Plan: Results of his labs done earlier this morning reviewed and discussed with patient - advised that his cholesterol numbers have all improved from previous Reinforced low cholesterol diet Continue Atorvastatin 40 mg QD Will recheck his labs and fasting lipids in 4 months for follow up (4) Benign essential hypertension: Code(s): I10 - Essential (primary) hypertension Plan: Reinforced low sodium diet - goal is systolic BP of at least 130 to 140 mm due to his cardiac history Continue Benazepril 10 mg QD and Metoprolol ER 50 mg 3 tablets (total of 150 mg) QD (5) COPD (chronic obstructive pulmonary disease): Code(s): J44.9 - Chronic obstructive pulmonary disease, unspecified Qualifiers: COPD type: unspecified COPD Qualified Code(s): J44.9 - Chronic obstructive pulmonary disease, unspecified Plan: Stable - reinforced again the importance of smoking cessation, even though patient is now only smoking electronic cigarettes that has reportedly very little nicotine in them (6) Impaired fasting glucose: Code(s): R73.01 - Impaired fasting glucose Plan: HgbA1c was normal at 5.6% on his labs done earlier today; was also normal at 5.5% a few months ago Reinforced low calorie diet/exercise as tolerated (7) GERD without esophagitis: Code(s): K21.9 - Gastro-esophageal reflux disease without esophagitis Plan: Dietary restrictions reinforced Continue Pantoprazole 40 mg QD - Rx refilled Will refer him to GI for further evaluation and management and consideration for EGD (8) Lumbar degenerative disc disease: Code(s): M51.36 - Other intervertebral disc degeneration, lumbar region Plan: Reinforced activity and weight-lifting restrictions to minimize aggravating his low back pain (9) Osteoarthritis of right hip: Code(s): M16.11 - Unilateral primary osteoarthritis, right hip Qualifiers: Osteoarthritis type: primary Qualified Code(s): M16.11 - Unilateral primary osteoarthritis, right hip Plan: Takes OTC Tylenol or Naproxen 500 mg BID PRN with adequate relief of his symptoms - Naproxen Rx refilled, per request (10) Vitamin D deficiency: Code(s): E55.9 - Vitamin D deficiency, unspecified Plan: Corrected - continue Vitamin D3 1000 units daily Will continue to monitor his vitamin D level regularly (11) History of prostate cancer: Code(s): Z85.46 - Personal history of malignant neoplasm of prostate Plan: S/P prostatectomy Follow up with urology as scheduled for continuing surveillance although he states that his urologist in [place] retired recently and he will need to see someone locally when the time comes (12) Suprapubic pressure: Code(s): R10.2 - Pelvic and perineal pain Plan: Bladder US done came out mostly normal Symptoms may have been related to his previous urinary incontinence (13) Urinary incontinence: Code(s): R32 - Unspecified urinary incontinence Qualifiers: Urinary Incontinence type: unspecified incontinence Qualified Code(s): R32 - Unspecified urinary incontinence Plan: Possible overflow incontinence in light of his recent recurrent suprapubic pressure - may be experiencing outlet obstruction although he had a prostatectomy done Was started on a trial of Myrbetriq 25 mg Q HS at his last visit but states that the Rx did not help and he stopped taking it after a while Was started on Myrbetriq 50 mg Q HS at his last visit and states that the higher dose is helping better but only slightly Will refer him to urology for further evaluation and management (14) Smoker: Code(s): F17.200 - Nicotine dependence, unspecified, uncomplicated Plan: Counseled again on smoking cessation - patient is now smoking electronic cigarettes exclusively and states that he is still working on quitting completely (15) Obesity (BMI 30-39.9): Code(s): E66.9 - Obesity, unspecified Plan: Reinforced diet/exercise as tolerated/lose weight Plan Follow up in 4 months Orders: Orders Comprehensive [place]. Panel Fast 4 Months E78.00 - Pure hypercholesterolemia, unspecified Lipid Panel 4 Months E78.00 - Pure hypercholesterolemia, unspecified TSH reflex Free T4 4 Months E78.00 - Pure hypercholesterolemia, unspecified UA CC w/rflx Micro + Cult 4 Months R30.0 - Dysuria Hemoglobin A1c 4 Months R73.01 - Impaired fasting glucose Influenza [id number] Immunization 03/27/23 Z23 - Encounter for immunization Complete Blood Count Auto Diff 4 Months I10 - Essential (primary) hypertension Vitamin D 25-OH Total 4 Months E55.9 - Vitamin D deficiency, unspecified Referrals Gastroenterology Referral K21.9 - Gastro-esophageal reflux disease without esophagitis Urology Referral R32 - Unspecified urinary incontinence, Z90.79 - Acquired absence of other genital organ(s) Medications: Changed From benazepril 10 mg PO DAILY 90 tabs 0RF To benazepril 40 mg PO DAILY 90 days 90 tabs 1RF From pantoprazole 40 mg PO DAILY 10 days 10 tabs 0RF To pantoprazole (Protonix) 40 mg PO DAILY 90 days 90 tabs 3RF From pantoprazole 40 mg PO DAILY 30 tabs 0RF To pantoprazole 40 mg PO DAILY 10 days 10 tabs 0RF Coding Level of Care Code Est Pt Level 4 (17721) Diagnoses Coronary artery disease involving [place] coronary artery of [place] heart without angina pectoris I25.10 Associated angina: without angina Coronary Disease-Associated Artery/Lesion type: [place] artery [place] vs. transplanted heart: [place] heart Carotid atherosclerosis, unspecified laterality I65.29 Laterality: unspecified laterality Pure hypercholesterolemia E78.00 Benign essential hypertension I10 Chronic obstructive pulmonary disease, unspecified COPD type J44.9 COPD type: unspecified COPD Impaired fasting glucose R73.01 GERD without esophagitis K21.9 Lumbar degenerative disc disease M51.36 Primary osteoarthritis of right hip M16.11 Osteoarthritis type: primary Vitamin D deficiency E55.9 History of prostate cancer Z85.46 Suprapubic pressure R10.2 Urinary incontinence, unspecified type R32 Urinary Incontinence type: unspecified incontinence Smoker F17.200 Obesity (BMI 30-39.9) E66.9
[2023-03-27 09:29] VITALS: BP 172/88; PULSE 75; O2SAT 98; BMI 35.0
[2023-03-27 10:07] VITALS: BP 170/90
== END 2023-03-27 10:19 | disposition home or self-care (01) ==
PROVIDERS: PCP Internal Medicine; Visit Provider Internal Medicine
DX: I25.10 Atherosclerotic heart disease of native coronary artery without angina pectoris (principal); J44.9 Chronic obstructive pulmonary disease, unspecified; I65.29 Occlusion and stenosis of unspecified carotid artery; E78.00 Pure hypercholesterolemia, unspecified; I10 Essential (primary) hypertension; R73.01 Impaired fasting glucose; K21.9 Gastro-esophageal reflux disease without esophagitis; M51.36 Other intervertebral disc degeneration, lumbar region; M16.11 Unilateral primary osteoarthritis, right hip; E55.9 Vitamin D deficiency, unspecified; Z85.46 Personal history of malignant neoplasm of prostate; R10.2 Pelvic and perineal pain
CPT/HCPCS: 99214

== ENCOUNTER 2023-04-20 09:49 | Outpatient (AMB) | payer MEDICARE, OTHER, SELFPAY ==
[2023-04-20 11:37] VITALS: BP 150/70; PULSE 80; TEMP 36.8; O2SAT 98; BMI 35.6
--- NOTE | 2023-04-20 11:37 | MHC.OFFWIV ---
Intake Vital Signs 04/20/23 11:37 Height 5 ft 8 in Weight 234 lb BMI 35.6 BP 150/70 H Blood Pressure Location Rt brachial Position Sitting Pulse 80 Pulse Source Pulse Oximeter Temp 98.3 F Temp Source Temporal Artery Scan Pulse Oximetry (%) 98 Oxygen Delivery Method Room Air Intake Visit Reasons: EST/cough(masked/lobby) Intake Note: pt is here today for cough started 2 weeks ago Patient Tobacco Use Status: Former Tobacco user Allergies ciprofloxacin [From CIPRO] Allergy (Severe, Verified 04/20/23 11:42) ERYTHEMA MULTIFORMA Sulfa (Sulfonamide Antibiotics) [SULFA (SULFONAMIDE ANTIBIOTICS)] Allergy (Intermediate, Verified 04/20/23 11:42) RASH Do you need a note to return to daycare/school/sports/work: No HPI HPI Comments History of Present Illness Details This is a 72-year-old male who presents to the office today for sick visit. Patient complaining of persistent viral URI symptoms times 10 days. He reports his sore throat is the worst but he also reports some mild nasal congestion rhinorrhea, and a dry cough. He denies any fevers or chills. Denies any chest pain or shortness of breath. Denies any abdominal pain or nausea/ vomiting /diarrhea. He states he is usually put on amoxicillin for his symptoms. [facility] Medical History Obesity (BMI 30-39.9) External otitis of left ear Vaccine counseling Epidermoid cyst Left leg pain Overweight (BMI 25.0-29.9) Smoker History of prostate cancer Vitamin D deficiency Osteoarthritis of right hip Lumbar degenerative disc disease GERD without esophagitis Impaired fasting glucose COPD (chronic obstructive pulmonary disease) Pure hypercholesterolemia Benign essential hypertension Coronary artery disease Surgical History History of bilateral cataract extraction History of lithotripsy History of angioplasty (~1995) History of prostatectomy Family History Father Lung cancer Mother Myocardial infarction CVD (cardiovascular disease) Social History Housing: House Alcohol intake: current Alcohol intake frequency: holidays/special occasions only Patient Tobacco Use Status: Former Tobacco user Tobacco use type: Cigarette e-Cigarette/Vaping Use: Currently Using Second Hand Smoke Exposure: Yes service: No Current occupational status: retired Cognitive needs: No Hearing needs: No Vision needs: Yes Review of Systems Const All systems reviewed & are unremarkable except as noted in HPI and below Reports no additional complaints Eyes Reports no additional complaints ENT Reports no additional complaints Card Reports no additional complaints Resp Reports no additional complaints GI Reports no additional complaints Reports no additional complaints Musc Reports no additional complaints Skin/Breast Reports system reviewed and no additional complaints, except as documented Neuro Reports no additional complaints Psych Reports no additional complaints Endo Reports no additional complaints Mehul/Lymph Reports no additional complaints Aller/Immun Reports no additional complaints Physical Exam Vital Signs: Last Vital Signs Temp 98.3 F 04/20/23 11:37 Pulse 80 04/20/23 11:37 BP 150/70 H 04/20/23 11:37 Pulse Ox 98 04/20/23 11:37 Oxygen Delivery Method Room Air 04/20/23 11:37 BMI result Body Mass Index 35.6 Const Other: Vital signs reviewed. Constitutional: Non-toxic appearing. No acute distress. Well-developed and well-nourished. HEENT: Normocephalic and atraumatic. Tympanic membranes without erythema, edema, or bulging bilaterally. External auditory canals without erythema or edema bilaterally. Moist mucous membranes. No pharyngeal erythema or exudates. Skin: Warm and dry. No rashes or lesions noted. Neck: Full and painless range of motion. No cervical lymphadenopathy. Cardio: Regular rate and rhythm. No murmurs, gallops, or rubs. No lower extremity edema. No JVD. Pulmonary: No respiratory distress. No accessory muscle usage. Clear to auscultation bilaterally without wheezing, crackles, or rhonchi. Gastrointestinal: Soft, nontender, and nondistended in all 4 quadrants. Normoactive bowel sounds in all 4 quadrants. Genitourinary: No CVA tenderness. Musculoskeletal: Normal range of motion in joints throughout the body. No deformity or other signs of injury. Neuro: Alert and oriented x4. Cranial nerves 2-12 grossly intact. No focal deficits appreciated. Psych: Normal mood and affect. Results AMB Rapid Strep AMB Rapid Strep Negative Last Edit by Nickie Posada CMA on 04/20/23 11:54 Results Reviewed Results Reviewed: Laboratory Last Values Strep Scn [facility] Negative 04/20/23 11:54 Assessment & Plan Assessment & Plan (1) Viral URI: Code(s): J06.9 - Acute upper respiratory infection, unspecified (2) Pharyngitis: Code(s): J02.9 - Acute pharyngitis, unspecified Plan Patient presenting with signs and symptoms most consistent with acute respiratory tract infection and acute pharyngitis, likely viral. Recommended symptomatic management including rest, increased fluids, advil/tylenol for pain/fever, salt water gargles and over the counter throat lozenges/decongestants. No evidence of peritonsillar mass/abscess, peritonsillar cellulitis, or, unilateral neck swelling. Patient's vital signs are stable, physical exam is benign, and patient is overall nontoxic appearing. Patient is requesting a prescription for amoxicillin. I reassured the patient that his condition is likely viral and a self-limiting illness. However, patient is adamant that he would like amoxicillin treatment. Patient was educated extensively about the risks of unnecessary antibiotic use including GI upset, C diff colitis, and increased risk for multi-drug resistant organisms in the future. Patient would like to continue with antibiotic treatment. He was given a prescription for p.o. amoxicillin 500 mg twice daily x7 days. Patient advised to follow up here or go to the emergency room for worsening/persistent symptoms. Patient verbalizes understanding and is in agreement the plan. Orders: Orders AMB Rapid Strep Screen Today Z13.9 - Encounter for screening, unspecified Medications: New amoxicillin 500 mg PO BID 14 caps 0RF Coding Level of Care Code Est Pt Level 3 (24757) Diagnoses Viral URI J06.9 Pharyngitis J02.9
== END 2023-04-20 12:50 | disposition home or self-care (01) ==
PROVIDERS: PCP Internal Medicine; Visit Provider Physician Assistant Medical
DX: J06.9 Acute upper respiratory infection, unspecified (principal); J02.9 Acute pharyngitis, unspecified; Z13.9 Encounter for screening, unspecified
CPT/HCPCS: 87880; 99213

== ENCOUNTER 2023-05-03 08:17 | Outpatient (AMB) | payer MEDICARE, OTHER, SELFPAY ==
--- NOTE | 2023-05-03 08:44 | A.OFFVIS_ITS ---
Intake Vital Signs 05/03/23 08:45 Height 5 ft 8 in Weight 236 lb 5.369 oz BMI 35.9 BP 185/85 H Blood Pressure Location Lt brachial Position Sitting Pulse 80 Intake Visit Reasons: Gastroesophageal reflux disease (GERD) Intake Note: Patient referred by PCP Dr. Adams for GI reflux. Was seen at ER 1m ago with chest pain but diagnosed with acid reflux. Was prescribed pantoprazole 40mg QD and reports improvement since starting med. Pharmacy Informatics Specialist Required: No Accompanied by: Self / Same As Patient Allergies ciprofloxacin [From CIPRO] Allergy (Severe, Verified 05/03/23 08:50) ERYTHEMA MULTIFORMA Sulfa (Sulfonamide Antibiotics) [SULFA (SULFONAMIDE ANTIBIOTICS)] Allergy (Intermediate, Verified 05/03/23 08:50) RASH amoxicillin Adverse Reaction (Severe, Verified 05/03/23 08:50) Swelling Medication List - Last Reconciled 05/03/23 by Jeanna Mcnair PA-C aspirin 81 mg PO DAILY atorvastatin 40 mg PO DAILY benazepril 40 mg PO DAILY 90 days cholecalciferol (vitamin D3) 50 mcg PO DAILY diphenhydramine HCl (Benadryl) 25 mg PO BEDTIME PRN fluticasone propionate 50 mcg/actuation 1 spray intranasal DAILY PRN metoprolol succinate ER 150 mg (3 x 50 mg) PO DAILY 90 days mirabegron ER 50 mg PO DAILY 30 days multivitamin 1 tab PO DAILY naproxen 500 mg PO BID PRN 30 days pantoprazole (Protonix) 40 mg PO DAILY 90 days HPI HPI Comments History of Present Illness Details 72-year-old male acid reflux on and off- he went to ED due to hx GA- he presents hypertensive, he was dx with acid reflux- pantoprazole 40 mg - excellent response.he knows when wt is up-his reflux becomes worse-he will be sure to consider dietary modifications. He says he has been nervous about his health- his BP has been elevated- recently- he has increase it as medications he says he has headache because he gets anxiety about his health. He has a history of prostate cancer and has recently noted a a lump on the joaquín ticle which he is going to see Urology next week, however E expresses his anxiety over this, certainly understandable. He is aware his referred to consider having an EGD something he does not want-he is worried about anesthesia Up to date on colonoscopy-last at [facility] couple years ago- was normal- 10 year He has no further acid reflux, nausea, vomiting, hematemesis, hematochezia fever or chills. He has no shortness of breath dizziness or chest pain [facility] Medical History Obesity (BMI 30-39.9) External otitis of left ear Vaccine counseling Epidermoid cyst Left leg pain Overweight (BMI 25.0-29.9) Smoker History of prostate cancer Vitamin D deficiency Osteoarthritis of right hip Lumbar degenerative disc disease GERD without esophagitis Impaired fasting glucose COPD (chronic obstructive pulmonary disease) Pure hypercholesterolemia Benign essential hypertension Coronary artery disease Surgical History History of bilateral cataract extraction History of lithotripsy History of angioplasty (~1995) History of prostatectomy Family History Father Lung cancer Mother Myocardial infarction CVD (cardiovascular disease) Social History Housing: House Alcohol intake: current Alcohol intake frequency: holidays/special occasions only Patient Tobacco Use Status: Former Tobacco user Tobacco use type: Cigarette e-Cigarette/Vaping Use: Currently Using Second Hand Smoke Exposure: Yes service: No Current occupational status: retired Cognitive needs: No Hearing needs: No Vision needs: Yes Review of Systems Const Details: he is very nervous about health- has ZAMUDIO- no CP or SOB- All systems reviewed & are unremarkable except as noted in HPI and below Denies chills, Denies fever(s) and Reports weight gain Eyes Denies blurry vision Card Denies chest pain, Denies dyspnea and Denies dyspnea on exertion Resp Denies dyspnea and Denies dyspnea on exertion GI Denies abdominal pain, Denies change in bowel habits, Denies heartburn, Denies nausea and Denies vomiting Physical Exam Vital Signs: Last Vital Signs Pulse 80 05/03/23 08:45 BP 185/85 H 05/03/23 08:45 BMI result Body Mass Index 35.9 Const General: cooperative, healthy appearing, comfortable, no acute distress and anxious Orientation/consciousness: patient oriented x3 Limitations: no limitations Eyes Sclerae: sclerae normal Resp Effort & Inspection: normal respiratory effort and able to speak in complete sentences Auscultation: clear to auscultation bilaterally, no rales, no rhonchi and no wheezes Cardio Rate: regular rate Rhythm: regular rhythm Heart sounds: S1 normal heart sound present and S2 normal heart sound present Neuro General: patient oriented x3 Assessment & Plan Assessment & Plan (1) GERD (gastroesophageal reflux disease): Comment: Very pleasant Gent, anxious Acid reflux responded well to pantoprazole 40 mg daily Declined EGD Code(s): K21.9 - Gastro-esophageal reflux disease without esophagitis Plan: Monitor symptoms, EGD though declined would recommend- Reinforce reflux precaution in (2) Anxiety about health: Comment: Extremely anxious, hypertensive, recheck BP somewhat improved however still elevated-headache, Denies any other associated symptoms no change in vision, chest pain, or shortness of breath Code(s): R45.89 - Other symptoms and signs involving emotional state Plan: Discuss further with PCP Plan UGI continue pantoprazole Orders: Orders [place] upper GI series Today K21.9 - Gastro-esophageal reflux disease without esophagitis, R13.10 - Dysphagia, unspecified, Z85.46 - Personal history of malignant neoplasm of prostate Patient Instructions: A very high extremely anxious 72-year-old Gent referred with acid reflux- He has extreme anxiety in regard to testicular lump awaiting Urology follow-up- reassurance off lifestyle and dietary changes that would be beneficial. He had declined EGD however will get upper GI series in the meanwhile. he will call for results of UIGI Continue pantoprazole 40 mg daily Reviewed reflux precautions avoid culprits it was caffeine, nicotine, chocolate, peppermint and alcohol. He should remain upright 2-3 hours after eating, especially evening meal Encouraged to call with questions or concerns Appreciate the opportunity assist in the care this Gent Coding Level of Care Code New Pt Level 4 (27066) Diagnoses GERD (gastroesophageal reflux disease) K21.9 Anxiety about health R45.89 Time Spent (min) 35
[2023-05-03 08:45] VITALS: BP 185/85; PULSE 80; BMI 35.9
== END 2023-05-03 09:40 | disposition home or self-care (01) ==
PROVIDERS: PCP Internal Medicine; Visit Provider Physician Assistant
DX: K21.9 Gastro-esophageal reflux disease without esophagitis (principal); R45.89 Other symptoms and signs involving emotional state
CPT/HCPCS: 99204

== ENCOUNTER → 2023-05-03 08:17 | Outpatient (BNVA) | payer MEDICARE, OTHER, SELFPAY | PROVIDERS: PCP Internal Medicine; Visit Provider Physician Assistant | DX: K21.9 Gastro-esophageal reflux disease without esophagitis (principal); R45.89 Other symptoms and signs involving emotional state | CPT/HCPCS: 99202 ==

== ENCOUNTER 2023-05-09 09:39 | Outpatient (AMB) | payer MEDICARE, OTHER, SELFPAY ==
--- NOTE | 2023-05-09 10:18 | MHC.OFFVIS ---
Intake Intake Visit Reasons: Acquired absence of other genital organ Intake Note: New Patient presents for initial visit for lump on testicle/history of prostate cancer (prev seen Dr. Watkins) Urology Medications: none Blood Thinner: aspirin Living Specialist Required: No Accompanied by: Self / Same As Patient Allergies ciprofloxacin [From CIPRO] Allergy (Severe, Verified 05/10/23 21:03) ERYTHEMA MULTIFORMA Sulfa (Sulfonamide Antibiotics) [SULFA (SULFONAMIDE ANTIBIOTICS)] Allergy (Intermediate, Verified 05/10/23 21:03) RASH amoxicillin Adverse Reaction (Severe, Verified 05/10/23 21:03) Swelling Medication List - Last Reconciled 05/10/23 by LOI Fields- aspirin 81 mg PO DAILY atorvastatin 40 mg PO DAILY benazepril 40 mg PO DAILY 90 days cholecalciferol (vitamin D3) 50 mcg PO DAILY diphenhydramine HCl (Benadryl) 25 mg PO BEDTIME PRN fluticasone propionate 50 mcg/actuation 1 spray intranasal DAILY PRN metoprolol succinate ER 150 mg (3 x 50 mg) PO DAILY 90 days multivitamin 1 tab PO DAILY naproxen 500 mg PO BID PRN 30 days pantoprazole (Protonix) 40 mg PO DAILY 90 days vibegron (Gemtesa) 75 mg PO DAILY 30 days HPI HPI Comments History of Present Illness Details Austen is a very pleasant 72-year-old male patient of Dr. Adams. He has a past medical history of obesity, smoker, prostate cancer status post prostatectomy approximately 20 years ago, vitamin-D deficiency, osteoarthritis, lumbar degenerative disc disease, GERD, COPD, hypercholesteremia, hypertension, and coronary artery disease status post [place] angioplasty and stent insertion in 1995. He presents to the office today as a new patient for his ongoing worsening incontinence. In discussion with the patient today he reports noting worsening urinary incontinence over the years. He reports symptoms have been present since his prostatectomy. He reports having followed up with Dr. Fatima in the past for his longstanding history of nephrolithiasis as well as his urinary incontinence. He discusses having trialed multiple medications however not found them helpful. When asked he does not know the name of these medications as this has been an ongoing issue. However he reports having trialed most recently Myrbetriq with no benefits. Discussed at length potential causes for incontinence patient is experiencing. Patient also reporting right-sided scrotal lump however declines physical exam with [facility] provider. Dr. Jurado in to assess patient. Scarring of the epididymis noted. He otherwise denies hematuria, dysuria, foul smelling urine, changes to urinary stream, flank pain, fever, and or chills. In review of patient's chart it appears PSA 11/06 <0.05. It appears a bladder ultrasound was ordered by the patient's PCP in these results reviewed with the patient today. The bladder is well distended. Bilateral ureteral jets are demonstrated. Pre void bladder volume is approximately 370 mL.There is no postvoid residual. There is mild bladder wall thickening. The prostate gland is not visualized consistent with history of prostatectomy. He otherwise offers no other issues or concerns at this time. [facility] Medical History Obesity (BMI 30-39.9) External otitis of left ear Vaccine counseling Epidermoid cyst Left leg pain Overweight (BMI 25.0-29.9) Smoker History of prostate cancer Vitamin D deficiency Osteoarthritis of right hip Lumbar degenerative disc disease GERD without esophagitis Impaired fasting glucose COPD (chronic obstructive pulmonary disease) Pure hypercholesterolemia Benign essential hypertension Coronary artery disease Surgical History History of bilateral cataract extraction History of lithotripsy History of angioplasty (~1995) History of prostatectomy Family History Father Lung cancer Mother Myocardial infarction CVD (cardiovascular disease) Social History Housing: House Alcohol intake: current Alcohol intake frequency: holidays/special occasions only Patient Tobacco Use Status: Former Tobacco user Tobacco use type: Cigarette e-Cigarette/Vaping Use: Currently Using Second Hand Smoke Exposure: Yes service: No Current occupational status: retired Cognitive needs: No Hearing needs: No Vision needs: Yes Review of Systems Const Reports as per HPI Eyes Reports no additional complaints ENT Reports no additional complaints Card Reports as per HPI Resp Reports no additional complaints GI Reports as per HPI Reports as per HPI Musc Reports as per HPI Neuro Reports no additional complaints Psych Reports no additional complaints Endo Reports no additional complaints Physical Exam Const General: cooperative, healthy appearing, comfortable, no acute distress, well developed, alert and awake Nutritional Appearance: overweight Orientation/consciousness: patient oriented x3 Limitations: no limitations HEENT Head: Yes normal to inspection, Yes normocephalic and Yes atraumatic Ears: hearing grossly normal bilaterally Eyes General: appearance normal, both eyes and all related structures Neck Neck: Yes normal visual inspection and Yes trachea midline Chest Chest palpation & inspection: normal inspection of the chest Resp Effort & Inspection: normal respiratory effort and able to speak in complete sentences Cardio Rate: regular rate GI Inspection: Yes normal to inspection General: Yes no CVA tenderness Back/Spine/Pelvis Back: no CVA tenderness Skin General skin exam: no rashes or lesions noted Neuro General: patient oriented x3 Extrem General: Yes normal to inspection Psych Appearance: grossly normal and well kempt Mental Status: mental status grossly normal Speech and movement: Normal speech and movement present and Clear speech present Affect: normal affect Attitude: cooperative Thought process: Normal thought process present Thought content: Normal thought content present Insight: Fair insight present (Psych) Judgement: Fair judgement present (Psych) Results AMB Urinalysis, Automated UA Leukoctes 0 Jose/uL Last Edit by [employer] on 05/09/23 10:28 UA Nitrite Negative Last Edit by [employer] on 05/09/23 10:28 UA Urobilinogen 0.2 mg/dL Last Edit by [employer] on 05/09/23 10:28 UA Protein 0 mg/dL Last Edit by [employer] on 05/09/23 10:28 UA pH 6.0 Last Edit by [employer] on 05/09/23 10:28 UA Blood 0 Andrew/uL Last Edit by [employer] on 05/09/23 10:28 UA Specific Schofield 1.030 Last Edit by [employer] on 05/09/23 10:28 UA Ketone Negative Last Edit by [employer] on 05/09/23 10:28 UA Bilirubin 0 mg/dL Last Edit by [employer] on 05/09/23 10:28 UA Glucose 0 mg/dL Last Edit by [employer] on 05/09/23 10:28 Results Reviewed Results Reviewed: Laboratory Last Values Urine pH (Auto) 6.0 05/09/23 10:20 Specific Schofield (Auto) 1.030 05/09/23 10:20 Urine Protein (Auto) 0 mg/dL 05/09/23 10:20 Glucose (UA)(Auto) 0 mg/dL 05/09/23 10:20 Urine Ketones (Auto) Negative 05/09/23 10:20 Urine Blood (Auto) 0 Andrew/uL 05/09/23 10:20 Urine Nitrite (Auto) Negative 05/09/23 10:20 Urine Bilirubin (Auto) 0 mg/dL 05/09/23 10:20 Urine Urobilinogen (Auto) 0.2 mg/dL 05/09/23 10:20 Leukocyte Esterase (Auto) 0 Jose/uL 05/09/23 10:20 Date of Service: 09/25/22 EXAMINATION: US PELVIS LIMITED (BLADDER) FINDINGS: BLADDER: Well distended. Bilateral ureteral jets are demonstrated. Prevoid bladder volume is 368.2 mL. There is no postvoid residual. There is mild bladder wall thickening. The prostate gland is not visualized consistent with history of prostatectomy. IMPRESSION: 1. Mild bladder wall thickening. 2. Normal bilateral ureteral jets seen. 3. The prostate gland is not visualized consistent with history of prostatectomy. Assessment & Plan Assessment & Plan (1) History of prostate cancer: Code(s): Z85.46 - Personal history of malignant neoplasm of prostate (2) S/P prostatectomy: Code(s): Z90.79 - Acquired absence of other genital organ(s) (3) Bladder wall thickening: Code(s): N32.89 - Other specified disorders of bladder (4) Urinary incontinence: Code(s): R32 - Unspecified urinary incontinence Qualifiers: Urinary Incontinence type: unspecified incontinence Qualified Code(s): R32 - Unspecified urinary incontinence (5) Epididymal cyst: Code(s): N50.3 - Cyst of epididymis Plan In office urinalysis results reviewed with the patient today; as noted above. Discussed at length potential treatment options for urinary incontinence patient is experiencing with in office cystoscopy and or urodynamics for further assessment evaluation. Discussed obtaining more recent PSA for further assessment evaluation. Recent bladder ultrasound results reviewed with the patient today; as noted above. Will obtain renal ultrasound for further assessment evaluation of nephrolithiasis. Stop Myrbetriq. Start Gemtesa as discussed and prescribed. Discussed at length bladder triggers/irritants. Discussed and information provided on pelvic floor therapy Patient wishes to have male provider will schedule follow-up with Dr. Jurado Follow-up in 6-8 weeks with imaging and lab to be completed prior; or sooner with any issues, concerns, and or questions. Orders: Orders US renal BI 05/09/23 N20.0 - Calculus of kidney AMB Urinalysis Automated 05/09/23 Z13.9 - Encounter for screening, unspecified Prostate Specific Antigen Today Z85.46 - Personal history of malignant neoplasm of prostate Medications: New vibegron (Gemtesa) 75 mg PO DAILY 30 days 30 tabs 1RF N32.81 - Overactive bladder Discontinued mirabegron ER Discontinued Reason: Patient Completed Course 50 mg PO DAILY 30 days 30 tabs 3RF Patient Instructions: The patient had an opportunity to ask questions regarding the treatment plan. All questions were answered. Physical exam, labs, and imaging were discussed and reviewed in detail. As well as risks, benefits, and discussion of treatment choices. No major barriers to understanding were identified. The patient expressed understanding and agreement with the above treatment plan. The patient was made aware they should contact our office by phone for worsening of their current condition, the appearance of new symptoms, or with any questions or concerns. Compliance is encouraged with any medications and follow up testing that is ordered. It is a privilege to be allowed the opportunity to participate in? your urological care.? Again, if you have any questions or concerns If you have any questions or concerns please do not hesitate to contact me. The office is [phone]. This note is constructed using voice recognition software. While every effort has been made to ensure accuracy poultry farmworker errors may have been included. Yours sincerely, ROGELIO Fields Coding Level of Care Code New Pt Level 4 (62827) Diagnoses History of prostate cancer Z85.46 S/P prostatectomy Z90.79 Bladder wall thickening N32.89 Urinary incontinence, unspecified type R32 Urinary Incontinence type: unspecified incontinence Epididymal cyst N50.3
== END 2023-05-09 11:35 | disposition home or self-care (01) ==
PROVIDERS: PCP Internal Medicine; Visit Provider Nurse Practitioner Family
DX: Z85.46 Personal history of malignant neoplasm of prostate (principal); Z90.79 Acquired absence of other genital organ(s); N32.89 Other specified disorders of bladder; R32 Unspecified urinary incontinence; N50.3 Cyst of epididymis
CPT/HCPCS: 99204

== ENCOUNTER → 2023-05-09 09:39 | Outpatient (BNVA) | payer MEDICARE, OTHER, SELFPAY | PROVIDERS: PCP Internal Medicine; Visit Provider Nurse Practitioner Family | DX: N32.89 Other specified disorders of bladder (principal); N50.3 Cyst of epididymis; R32 Unspecified urinary incontinence; Z85.46 Personal history of malignant neoplasm of prostate; Z90.79 Acquired absence of other genital organ(s) | CPT/HCPCS: 81003; 99202 ==

== ENCOUNTER 2023-07-18 08:42 | Outpatient (REF) | payer MEDICARE, OTHER, SELFPAY ==
--- NOTE | ~2023-07-18 | FL_ITS ---
EXAMINATION: XR FLUOROSCOPY UPPER GI WITH AIR CLINICAL INFORMATION: Reflux COMPARISON: None TECHNIQUE: Fluoroscopic air contrast upper GI examination was performed utilizing standard techniques with thin and thick barium and effervescent granules. Numerous spot images were obtained. FINDINGS: Lateral cine images of the oropharynx and hypopharynx demonstrate normal swallow mechanism with normal epiglottic inversion and soft palate elevation. There is a small bilateral pharyngeal pouch present (RF #1-3). No tracheal penetration, glottic or subglottic aspiration identified. No nasopharyngeal reflux present. Hypopharyngeal structures appear normal without evidence of mass. Mild cricopharyngeal achalasia is present. A tiny Zenker's diverticulum is present. Dual and single contrast images of the esophagus demonstrate normal caliber, contour, and mucosal pattern. No evidence of stricture, mass, or ulcerations identified. There is to and fro motion of the barium column. Esophageal peristalsis is mildly disorganized. A small type I hiatal hernia is present. No significant gastroesophageal reflux was seen during the course of the examination and on reflux views. Dual contrast and single contrast images of the stomach demonstrated normal contour and mucosal pattern without evidence of mass, ulceration, or other abnormality. Contrast freely passed into the gastric antrum and duodenal bulb without delay. Single and air-contrast images of the duodenal bulb demonstrate no abnormality. The duodenal sweep has a normal appearance, course, and mucosal fold appearance. No malrotation. The imaged proximal jejunum has a normal fold pattern and caliber. FLUOROSCOPY TIME: 3 minutes 57 seconds Number of Spot Images: 19 Number of Cine: 5 DOSE AREA PRODUCT: 3036 uGy-m2 (microgray-meter squared) FL/FL upper GI series IMPRESSION: 1. Small lateral pharyngeal pouch. 2. Mild cricopharyngeal achalasia. 3. Tiny Zenker's diverticulum. 4. Mildly disorganized esophageal peristalsis. 5. Small type I hiatal hernia. This procedure was performed by Hamzah Scott PA-C, and supervised by Dr. Parks
== END 2023-07-18 08:43 | disposition home or self-care (01) ==
LOC: HO.XRAY 08:42
PROVIDERS: PCP Internal Medicine; Visit Provider Physician Assistant
DX: R13.10 Dysphagia, unspecified (principal); K21.9 Gastro-esophageal reflux disease without esophagitis; Z85.46 Personal history of malignant neoplasm of prostate
CPT/HCPCS: 74240

== ENCOUNTER → 2023-07-18 09:02 | Outpatient (BNV) | payer MEDICARE, OTHER, SELFPAY | PROVIDERS: PCP Internal Medicine; Visit Provider Physician Assistant Surgical | DX: K21.9 Gastro-esophageal reflux disease without esophagitis (principal) | CPT/HCPCS: 74246 ==

== ENCOUNTER 2023-07-25 06:35 | Outpatient (REF) | payer MEDICARE, OTHER, SELFPAY ==
[2023-07-25 06:53] LABS: MANUAL DIFF FLAG NO
[2023-07-25 07:46] LABS: Basophils Percent Auto 0.3 % (0-2); Eosinophils Absolute Auto 0.2 X10*3/uL (0.0-0.4); Eosinophils Percent Auto 2.5 % (0-4); Hematocrit 45.7 % (42.0-52.0); Hemoglobin 14.7 g/dl (14.0-18.0); Imm Gran Abs Auto 0.03 X10*3/uL (0.00-0.03); Imm Gran Pct Auto 0.4 % (0.0-0.4); Lymphocytes Absolute Auto 1.5 X10*3/uL (1.2-4.9); Lymphocytes Percent Auto 19.8 % (20-40); Mean Corpuscular HGB Conc 32.2 g/dl (31.0-36.0); Mean Corpuscular Hemoglobin 29.3 pg (27.0-33.0); Mean Corpuscular Volume 91.2 fL (80.0-98.0); Mean Platelet Volume 12.4 fL (9.4-12.4); Monocytes Absolute Auto 0.9 X10*3/uL (0.1-1.2); Neutrophils Absolute Auto 5.1 x10*3/uL (2.0-8.3); Platelet Count 177 X10*3/uL (160-400); Red Blood Count 5.01 X10*6/uL (4.60-5.80); Red Cell Distribution Width 14.1 % (11.0-16.0); White Blood Count 7.7 X10*3/uL (4.8-10.8)
[2023-07-25 07:47] LABS: Appearance Urine Clear; Color Urine Yellow; Glucose Urine UA Negative (Negative); Leukocyte Esterase Urine Negative (Negative); Nitrite Urine Negative (Negative); PH 5.5 (5.0-9.0); Urine Blood Negative (Negative); Urine Ketones Negative (Negative); Urine Protein Negative (Neg-Trace)
[2023-07-25 07:55] LABS: Estimated Average Glucose 120 mg/dL; Hemoglobin A1c % 5.8 % (<6.0)
[2023-07-25 08:34] LABS: Alanine Aminotransferase 25 U/L (0-40); Albumin Level 3.9 g/dL (3.5-5.0); Alkaline Phosphatase 88 U/L (39-117); Anion Gap 12 (12-20); Aspartate Amino Transferase 23 U/L (5-37); Bilirubin Total 0.4 mg/dL (0.0-1.0); Blood Urea Nitrogen 19 mg/dL (9-16); Calcium 9.2 mg/dL (8.4-10.2); Carbon Dioxide 28 mmol/L (22-29); Chloride 106 mmol/L (96-108); Cholesterol 183 mg/dL (<200); Estimated Glomerular Filt Rate > 60; Glucose Fasting 104 mg/dL (60-99); HDL Cholesterol 38 mg/dL (>40); LDL Cholesterol Calculated 106 mg/dL (<100); Potassium 3.9 mmol/L (3.3-5.1); Sodium 142 mmol/L (135-145); Total Protein 6.9 g/dL (6.5-8.0); Triglycerides 197 mg/dL (<150)
[2023-07-25 08:51] LABS: TSH reflex Free T4 1.59 uIU/mL (0.32-4.0)
== END 2023-07-25 06:36 | disposition home or self-care (01) ==
LOC: HO.LAB 06:35
PROVIDERS: PCP Internal Medicine; Visit Provider Internal Medicine
DX: E78.00 Pure hypercholesterolemia, unspecified (principal); R73.01 Impaired fasting glucose; E55.9 Vitamin D deficiency, unspecified; R30.0 Dysuria; I10 Essential (primary) hypertension
CPT/HCPCS: 36415; 80053; 80061; 81003; 82306; 83036; 84443; 85025

== ENCOUNTER 2023-07-26 09:37 | Outpatient (AMB) | payer MEDICARE, OTHER, SELFPAY ==
[2023-07-26 09:47] VITALS: BP 160/92; PULSE 83; O2SAT 94; BMI 36.7
--- NOTE | 2023-07-26 09:47 | A.OFFPC_ITS ---
Vital Signs 07/26/23 09:47 07/26/23 10:25 Height 5 ft 8 in Weight 241 lb 2 oz BMI 36.7 BP 160/92 H 160/86 H Blood Pressure Location Lt brachial Lt brachial Position Sitting Sitting Pulse 83 Pulse Source Pulse Oximeter Pulse Oximetry (%) 94 Oxygen Delivery Method Room Air Intake Visit Reasons: HTN, hyperlipidemia, IFG, COPD, GERD Rn Chronic Required: No Accompanied by: Self / Same As Patient Allergies ciprofloxacin [From CIPRO] Allergy (Severe, Verified 07/26/23 10:10) ERYTHEMA MULTIFORMA Sulfa (Sulfonamide Antibiotics) [SULFA (SULFONAMIDE ANTIBIOTICS)] Allergy (Intermediate, Verified 07/26/23 10:10) RASH amoxicillin Adverse Reaction (Severe, Verified 07/26/23 10:10) Swelling Medication List - Last Reconciled 07/26/23 by Tha Adams MD aspirin 81 mg PO DAILY atorvastatin 40 mg PO DAILY benazepril 40 mg PO DAILY 90 days cholecalciferol (vitamin D3) 50 mcg PO DAILY diphenhydramine HCl (Benadryl) 25 mg PO BEDTIME PRN fluticasone propionate 50 mcg/actuation 1 spray intranasal DAILY PRN metoprolol succinate ER 150 mg (3 x 50 mg) PO DAILY 90 days multivitamin 1 tab PO DAILY naproxen 500 mg PO BID PRN 30 days pantoprazole (Protonix) 40 mg PO DAILY 90 days vibegron (Gemtesa) 75 mg PO DAILY 30 days Tobacco use date assessed: 07/26/23 Fall risk assessment: No Falls in past year Last assessed Fall Risk: 07/26/23 Dental Screening Dental Screen Date: 07/26/23 Did you have a dental visit in the last 12 months?: Yes Did you have a dental problem in the last 6 months where you did not have access to dental care?: No Was dental information given to patient?: Patient has dentist HPI HTN, hyperlipidemia, IFG, COPD, GERD HPI Details Patient comes in today for his follow up visit States that he feels okay He recently underwent upper GI series about a week ago - was sent for this by GI to further evaluate his symptoms of recurrent reflux and throat symptoms States that he saw his results on his patient portal and became very concerned about what was written there and he would like to discuss these further and get some clarifications on these States that he was mainly concerned about his risks for esophageal cancer and that his recent findings did not really do much to ease his anxiety He was also seen by urology recently for a lump that he felt on his testicle and was reassured that it felt more like some form of scar tissue ; he is scheduled for an ultrasound to look into his further next week and will be seeing Dr. Jurado again later this month for follow up He denies any headaches or dizziness Denies any chest pains, no SOB No nausea/vomiting, no abdominal pain No change in bowel habits noted Had his follow up labs done yesterday - to discuss his results [facility] Medical History (Updated 07/26/23 @ 10:42 by Tha Adams MD) Obesity (BMI 30-39.9) Vaccine counseling Epidermoid cyst Overweight (BMI 25.0-29.9) Smoker History of prostate cancer Vitamin D deficiency Osteoarthritis of right hip Lumbar degenerative disc disease GERD without esophagitis Impaired fasting glucose COPD (chronic obstructive pulmonary disease) Pure hypercholesterolemia Benign essential hypertension Coronary artery disease Surgical History History of bilateral cataract extraction History of lithotripsy History of angioplasty (~1995) History of prostatectomy Family History Father Lung cancer Mother Myocardial infarction CVD (cardiovascular disease) Social History Housing: House Alcohol intake: current Alcohol intake frequency: holidays/special occasions only Patient Tobacco Use Status: Former Tobacco user Tobacco use type: Cigarette e-Cigarette/Vaping Use: Currently Using Second Hand Smoke Exposure: Yes service: No Current occupational status: retired Cognitive needs: No Hearing needs: No Vision needs: Yes Questionnaire PHQ-9 Over the last 2 weeks, how often have you been bothered by any of the following problems? 1. Little interest or pleasure in doing things: not at all 2. Feeling down, depressed, or hopeless: not at all 3. Trouble falling or staying asleep, or sleeping too much: not at all 4. Feeling tired or having little energy: not at all 5. Poor appetite or overeating: not at all 6. Feeling bad about yourself - or that you are a failure or have let yourself or your family down: not at all 7. Trouble concentrating on things, such as reading the newspaper or watching television: not at all 8. Moving or speaking so slowly that other people could have noticed. Or the opposite - being so fidgety or restless that you have been moving around a lot more than usual: not at all 9. Thoughts that you would be better off or of hurting yourself in some way: not at all Total score: 0 Depression Screening Interpretation: Negative Depression Screening Done: Yes 00595 - PHQ-9 Billing: Yes Source: Developed by Drs. Venkata Hanson, Shala Burdick, Bladimir Mora and colleagues, with an educational iliana from [employer]. Thrive Questionnaire Date Thrive assessed: 07/26/23 I am a: Patient What is your living situation today?: I have a steady place to live Within the past 12 months, did the food you bought not last and you didn't have the money to get more?: Never true Within the past 12 months, did you worry whether your food would run out before you got money to buy more?: Never true Do you have trouble paying for medicines?: No Do you have trouble getting transportation to medical appointments?: No Do you have trouble paying your heating and electricity bill?: No Do you have trouble taking care of your child, family member or friend?: No Do you have trouble with day-to-day activities such as bathing, preparing meals, shopping, managing finances, etc.?: No Are you currently unemployed and looking for a job?: No Are you interested in more education?: No Please select the resources that you would like help with: None Currently or been in a relationship where the following occur: no concerns reported THRIVE Score: 0 AUDIT C Alcohol Use Questionnaire (AUDIT-C) 1. How often do you have a drink containing alcohol?: Never Total Score: 0 Score Reviewed/Action Taken: Yes CHRISTINA-7 AMB Questionnaire CHRISTINA-7 Date CHRISTINA - 7 assessed: 07/26/23 Feeling nervous, anxious, or on edge: 0 = Not at all Not being able to stop or control worryin = Not at all Worrying too much about different things: 0 = Not at all Trouble relaxin = Not at all Being so restless that it is hard to sit still: 0 = Not at all Becoming easily annoyed or irritable: 0 = Not at all Feeling afraid as if something awful might happen: 0 = Not at all Total CHRISTINA-7 score (0-4 normal; 5-9 mild; 10-14 moderate; 15-21 severe): 0 Source: Developed by Drs. Venkata Hanson, Shala Burdick, Bladimir Mora and colleagues, with an educational iliana from [employer]. Review of Systems Const Denies chills, Denies fatigue, Denies fever(s) and Denies headache(s) ENT Denies dysphagia, Denies dizziness, Denies otalgia, Denies headache(s), Denies neck pain, Denies odynophagia and Denies sore throat Card Denies chest pain, Denies palpitations and Denies dyspnea Resp Denies chest congestion, Denies cough and Denies dyspnea GI Denies abdominal pain, Denies constipation, Denies dysphagia, Reports heartburn (very rarely), Denies diarrhea, Denies nausea, Denies odynophagia and Denies vomiting Denies dysuria, Reports nocturia, Reports urinary frequency and Reports urinary incontinence Musc Denies neck pain Skin/Breast Denies rash Neuro Denies dizziness and Denies headache(s) Psych Reports anxiety Endo Denies fatigue and Denies palpitations Physical exam (Primary Care) Vital Signs: Last Vital Signs Pulse 83 07/26/23 09:47 BP 160/92 H 07/26/23 09:47 Pulse Ox 94 07/26/23 09:47 Oxygen Delivery Method Room Air 07/26/23 09:47 BMI result Body Mass Index 36.7 Tobacco/Smoking Status: Tobacco use Status Tobacco use date assessed 07/26/23 07/26/23 09:52 Patient Tobacco Use Status Former Tobacco user 07/26/23 09:52 Tobacco use type Cigarette 07/26/23 09:52 e-Cigarette/Vaping Use Currently Using 07/26/23 09:52 PHQ-9: PHQ-9 Score PHQ-9: Total score 0 07/26/23 09:52 Depression Screening Interpretation: Negative Thrive Assessment: Date of Thrive Assessment Date Thrive assessed 07/26/23 07/26/23 09:52 Currently or been in a relationship where the following occur: no concerns reported Const General: no acute distress and alert HENMT Ears: TM's normal bilaterally and EAC's normal Throat: Yes posterior oropharynx normal and Yes tonsils normal (no TP congestion noted) Neck Neck: Yes no lymphadenopathy and Yes supple Carotids: no bruits Resp Auscultation: clear to auscultation bilaterally, no rales and no wheezes Cardio Rate: regular rate Rhythm: regular rhythm Heart sounds: no murmurs GI Palpation (GI): Soft to palpation and nontender Auscultation: normal bowel sounds General: Yes no CVA tenderness Back/Spine/Pelvis Back: no CVA tenderness Thoracic/Lumbar Spine: thoracic and lumbar spine normal to inspection Skin Rashes: no rashes Extrem General: Yes no clubbing, cyanosis or edema Results Reviewed Results Reviewed: Laboratory Tests 07/25/23 07/25/23 07/25/23 06:35 06:49 06:49 WBC 7.7 Hgb 14.7 Hct 45.7 Plt Count 177 Sodium 142 Potassium 3.9 Creatinine 0.81 Estimated GFR > 60 Fasting Glucose 104 H Hemoglobin A1c % 5.8 Calcium 9.2 AST 23 ALT 25 Triglycerides 197 H Cholesterol 183 LDL Cholesterol, Calc 106 H HDL Cholesterol 38 L 25-OH Vitamin D Total 45.0 TSH 1.59 Ur Specific [place] 1.020 Urine Protein Negative Urine Glucose (UA) Negative Urine Blood Negative Urine Nitrite Negative Ur Leukocyte Esterase Negative Assessment and Plan Assessment & Plan (1) Coronary artery disease: Comment: S/P [place], angioplasty and stent insertion in 1995 Code(s): I25.10 - Atherosclerotic heart disease of [place] coronary artery without angina pectoris Qualifiers: Coronary Disease-Associated Artery/Lesion type: [place] artery [place] vs. transplanted heart: [place] heart Associated angina: without angina Qualified Code(s): I25.10 - Atherosclerotic heart disease of [place] coronary artery without angina pectoris Plan: S/P [place], angioplasty and stent insertion in 1995 - currently remains asymptomatic (has no anginal symptoms) Continue low dose Aspirin 81 mg QD Follow up with cardiology as scheduled (2) Carotid atherosclerosis: Code(s): I65.29 - Occlusion and stenosis of unspecified carotid artery Qualifiers: Laterality: unspecified laterality Qualified Code(s): I65.29 - Occlusion and stenosis of unspecified carotid artery Plan: Was sent previously for bilateral carotid US for further evaluation, per patient's request (mostly due to his dentist telling him that there were calcifications seen in his neck on routine dental x-rays) but insurance declined to cover his procedure Patient currently has no symptoms related to carotid stenosis (3) Pure hypercholesterolemia: Code(s): E78.00 - Pure hypercholesterolemia, unspecified Plan: Results of his labs done yesterday reviewed and discussed with patient - advised that his cholesterol numbers have all increased from previous Patient admits to poor compliance with his diet lately - states that he has been doing a lot of stress eating lately Reinforced low cholesterol diet Continue Atorvastatin 40 mg QD Will recheck his labs and fasting lipids in 4 months for follow up (4) Benign essential hypertension: Code(s): I10 - Essential (primary) hypertension Plan: Reinforced low sodium diet - goal is systolic BP of at least 130 to 140 mm due to his cardiac history Continue Benazepril 10 mg QD and Metoprolol ER 50 mg 3 tablets (total of 150 mg) QD (5) COPD (chronic obstructive pulmonary disease): Code(s): J44.9 - Chronic obstructive pulmonary disease, unspecified Qualifiers: COPD type: unspecified COPD Qualified Code(s): J44.9 - Chronic obstructive pulmonary disease, unspecified Plan: Stable - reinforced again the importance of smoking cessation, even though rudolph dominguez is now only smoking electronic cigarettes that has reportedly very little nicotine in them (6) Impaired fasting glucose: Code(s): R73.01 - Impaired fasting glucose Plan: HgbA1c was still normal at 5.8% on his labs done yesterday although this has been slowly going up over the past year; HgbA1c was at 5.6% a few months ago Reinforced low calorie diet/exercise as tolerated (7) GERD without esophagitis: Code(s): K21.9 - Gastro-esophageal reflux disease without esophagitis Plan: Dietary restrictions reinforced Continue Pantoprazole 40 mg QD (8) Zenker's (hypopharyngeal) diverticulum: Code(s): K22.5 - Diverticulum of esophagus, acquired Plan: Results of his upper GI series done last week reviewed and discussed with patient Results include (+) mild cricopharyngeal achalasia, tiny Zenker's diverticulum, mildly disorganized esophageal peristalsis and small type I hiatal hernia Have discussed with patient the above findings and conditions and some dietary and eating modifications he can do to help minimize his symptoms Have also advised him to contact GI to schedule a follow up appointment regarding these as well (9) Lumbar degenerative disc disease: Code(s): M51.36 - Other intervertebral disc degeneration, lumbar region Plan: Reinforced activity and weight-lifting restrictions to minimize aggravating his low back pain (10) Osteoarthritis of right hip: Code(s): M16.11 - Unilateral primary osteoarthritis, right hip Qualifiers: Osteoarthritis type: primary Qualified Code(s): M16.11 - Unilateral primary osteoarthritis, right hip Plan: Takes OTC Tylenol or Naproxen 500 mg BID PRN with adequate relief of his symptoms (11) Vitamin D deficiency: Code(s): E55.9 - Vitamin D deficiency, unspecified Plan: Continue Vitamin D3 1000 units QD Will continue to monitor his vitamin D level regularly (12) History of prostate cancer: Code(s): Z85.46 - Personal history of malignant neoplasm of prostate Plan: S/P prostatectomy Follow up with urology as scheduled for continuing surveillance He was previously seeing urology in [place] but his doctor there retired recently and he is now seeing Dr. Jurado here locally (13) Epididymal cyst: Code(s): N50.3 - Cyst of epididymis Plan: He is scheduled for US next week to look into this further and has a follow up appt with Dr. Jurado to discuss this further later this month (14) Urinary incontinence: Code(s): R32 - Unspecified urinary incontinence Qualifiers: Urinary Incontinence type: unspecified incontinence Qualified Code(s): R32 - Unspecified urinary incontinence Plan: Possible overflow incontinence in light of his recent recurrent suprapubic pressure - may be experiencing outlet obstruction although he had a prostatectomy done Was started on a trial of Myrbetriq 25 mg Q HS at his last visit but states that the Rx did not help and he stopped taking it after a while Was started on Myrbetriq 50 mg Q HS at his last visit and states that the higher dose is helping better but only slightly He is now on Gemtesa 75 mg QD Follow up with urology as scheduled (15) Smoker: Code(s): F17.200 - Nicotine dependence, unspecified, uncomplicated Plan: Counseled again on smoking cessation - patient is now smoking electronic cigarettes exclusively and states that he is still working on quitting completely (16) Obesity (BMI 30-39.9): Code(s): E66.9 - Obesity, unspecified Plan: Reinforced diet/exercise as tolerated/lose weight Plan Follow up in 4 months Orders: Orders UA CC w/rflx Micro + Cult 4 Months R30.0 - Dysuria Complete Blood Count Auto Diff 4 Months D64.9 - Anemia, unspecified Lipid Panel 4 Months E78.00 - Pure hypercholesterolemia, unspecified Comprehensive [place]. Panel Fast 4 Months E78.00 - Pure hypercholesterolemia, unspecified TSH reflex Free T4 4 Months E78.00 - Pure hypercholesterolemia, unspecified Vitamin D 25-OH Total 4 Months E55.9 - Vitamin D deficiency, unspecified Hemoglobin A1c 4 Months R73.01 - Impaired fasting glucose Coding Level of Care Code Est Pt Level 4 (30146) Diagnoses Coronary artery disease involving [place] coronary artery of [place] heart without angina pectoris I25.10 Coronary Disease-Associated Artery/Lesion type: [place] artery [place] vs. transplanted heart: [place] heart Associated angina: without angina Carotid atherosclerosis, unspecified laterality I65.29 Laterality: unspecified laterality Pure hypercholesterolemia E78.00 Benign essential hypertension I10 Chronic obstructive pulmonary disease, unspecified COPD type J44.9 COPD type: unspecified COPD Impaired fasting glucose R73.01 GERD without esophagitis K21.9 Zenker's (hypopharyngeal) diverticulum K22.5 Lumbar degenerative disc disease M51.36 Primary osteoarthritis of right hip M16.11 Osteoarthritis type: primary Vitamin D deficiency E55.9 History of prostate cancer Z85.46 Epididymal cyst N50.3 Urinary incontinence, unspecified type R32 Urinary Incontinence type: unspecified incontinence Smoker F17.200 Obesity (BMI 30-39.9) E66.9
[2023-07-26 10:25] VITALS: BP 160/86
== END 2023-07-26 10:32 | disposition home or self-care (01) ==
PROVIDERS: PCP Internal Medicine; Visit Provider Internal Medicine
DX: I25.10 Atherosclerotic heart disease of native coronary artery without angina pectoris (principal); J44.9 Chronic obstructive pulmonary disease, unspecified; I65.29 Occlusion and stenosis of unspecified carotid artery; E78.00 Pure hypercholesterolemia, unspecified; I10 Essential (primary) hypertension; R73.01 Impaired fasting glucose; K21.9 Gastro-esophageal reflux disease without esophagitis; K22.5 Diverticulum of esophagus, acquired; M51.36 Other intervertebral disc degeneration, lumbar region; M16.11 Unilateral primary osteoarthritis, right hip; E55.9 Vitamin D deficiency, unspecified; Z85.46 Personal history of malignant neoplasm of prostate
CPT/HCPCS: 99214

== ENCOUNTER 2023-07-30 07:47 | Outpatient (REF) | payer MEDICARE, OTHER, SELFPAY ==
--- NOTE | ~2023-07-30 | US_ITS ---
EXAMINATION: US RETROPERITONEAL LIMITED (RENAL ONLY) CLINICAL INFORMATION: Calculus of kidney. COMPARISON: CT abdomen and pelvis 07/06/2017. TECHNIQUE: Real-time imaging of the kidneys. FINDINGS: RIGHT KIDNEY: 13.2 x 6.0 x 4.6 cm (SAG x AP x TRV). The kidney is normal in size, contour, and echogenicity. Renal cortical thickness is normal. No focal parenchymal lesions or hydronephrosis. 3 mm nonobstructing mid pole pole renal stone new from prior. LEFT KIDNEY: 13.8 x 5.1 x 5.9 cm (SAG x AP x TRV). The kidney is normal in size, contour, and echogenicity. Renal cortical thickness is normal. No hydronephrosis. Benign-appearing renal cyst measuring 1.6 cm. No follow up imaging is recommended. 4 mm nonobstructing lower pole renal stone, previously 3 mm. US/US renal BI IMPRESSION: Bilateral nonobstructing renal stones measuring 3 mm on the right and 4 mm on the left, on the right new from prior.
== END 2023-07-30 07:48 | disposition home or self-care (01) ==
LOC: HO.US 07:47
PROVIDERS: PCP Internal Medicine; Visit Provider Nurse Practitioner Family
DX: N20.0 Calculus of kidney (principal)
CPT/HCPCS: 76775

== ENCOUNTER 2023-08-16 10:04 | Outpatient (AMB) | payer MEDICARE, OTHER, SELFPAY ==
--- NOTE | 2023-08-16 10:15 | MHC.OFFVIS ---
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 He is a patient of Dr. Adams. He is seen for the following urologic conditions - prostate cancer radical prostatectomy 2003 - stress incontinence - nephrolithiasis Advice given for Kegel exercises Did well with dryness for 15 years Add vitamin B6 for stones Stress incontinence Multiple prior medications Most recent Myrbetriq with minimal benefit Bladder ultrasound - effective bladder emptying Prostate cancer - PSA 11/06 <0.1 Nephrolithiasis Imaging - 08/11 renal ultrasound bilateral 3 mm stones, 1.6 cm cyst PFSH Medical History Obesity (BMI 30-39.9) Vaccine counseling Epidermoid cyst Overweight (BMI 25.0-29.9) Smoker History of prostate cancer Vitamin D deficiency Osteoarthritis of right hip Lumbar degenerative disc disease GERD without esophagitis Impaired fasting glucose COPD (chronic obstructive pulmonary disease) Pure hypercholesterolemia Benign essential hypertension Coronary artery disease Surgical History History of bilateral cataract extraction History of lithotripsy History of angioplasty (~1995) History of prostatectomy Family History Father Lung cancer Mother Myocardial infarction CVD (cardiovascular disease) Social History Housing: House Alcohol intake: current Alcohol intake frequency: holidays/special occasions only Patient Tobacco Use Status: Former Tobacco user Tobacco use type: Cigarette e-Cigarette/Vaping Use: Currently Using Second Hand Smoke Exposure: Yes service: No Current occupational status: retired Cognitive needs: No Hearing needs: No Vision needs: Yes Review of Systems Const Denies chills and Denies fever(s) Card Reports no additional complaints and Denies syncope Resp Denies cough GI Denies abdominal pain and Denies heartburn Reports as per HPI and Denies change in libido Neuro Denies syncope Psych Denies change in libido Endo Denies change in libido Physical Exam Const General: cooperative, healthy appearing, comfortable and no acute distress Orientation/consciousness: patient oriented x3 HEENT Face and sinus: Yes normal facial exam Mouth: moist mucous membranes Neck Neck: Yes normal visual inspection, Yes full ROM and Yes trachea midline Chest Chest palpation & inspection: normal inspection of the chest Resp Effort & Inspection: normal respiratory effort, able to speak in complete sentences and no respiratory distress GI Inspection: Yes normal to inspection Back/Spine/Pelvis Cervical Spine: normal cervical lordosis Thoracic/Lumbar Spine: thoracic and lumbar spine normal to inspection Skin General skin exam: no rashes or lesions noted Neuro General: patient oriented x3, gait normal, tone normal and moves all extremities Extrem General: Yes normal to inspection and Yes capillary refill normal Office Procedures Post Void Residual Post Residual Void Post Void Residual (PVR): 105 [id number] Void Residual by ultrasound Assessment & Plan Assessment & Plan (1) Nephrolithiasis: Code(s): N20.0 - Calculus of kidney (2) Stress incontinence: Code(s): N39.3 - Stress incontinence (female) (male) Plan Start vitamin B6 Trial Kegel's Three-month follow-up tele Orders: Orders AMB Post Void Residual by ultrasound Today R33.9 - Retention of urine, unspecified Medications: New pyridoxine (vitamin B6) 100 mg PO DAILY 90 tabs 1RF 90 days N20.0 - Calculus of kidney Patient Instructions: Imaging studies, laboratory and physical exam results were discussed and reviewed in detail. No major barriers to patient understanding were identified. An opportunity to ask questions regarding the treatment plan was provided. All questions were answered. The patient expressed understanding and agreement with the above treatment plan. The patient is aware they should contact our office by phone for worsening of their current condition or the appearance of new urologic symptoms. Compliance is encouraged with any medications and followup testing that is ordered. It is a privilege to participate in the urologic care of your patient. If you have any questions or concerns regarding treatment for the above conditions, or other urologic issues, please do not hesitate to contact me. The office telephone contact is [phone]. This note is constructed using voice recognition software. While every effort has been made to ensure accuracy chief recordist errors may have been included. Yours sincerely, Dr Andre Jurado MD, [facility] - Urology Providers of Expert, Compassionate Care for the Genitourinary System Coding Level of Care Code Est Pt Level 4 (90739) Diagnoses Nephrolithiasis N20.0 Stress incontinence N39.3 CPT Codes Post Residual Void - PVR CPT Code: 84135-Qlnf Void Residual by ultrasound ([id number])
== END 2023-08-16 10:49 | disposition home or self-care (01) ==
PROVIDERS: PCP Internal Medicine; Visit Provider Urology
DX: N20.0 Calculus of kidney (principal); N39.3 Stress incontinence (female) (male)
CPT/HCPCS: 99213

== ENCOUNTER → 2023-08-16 10:04 | Outpatient (BNVA) | payer MEDICARE, OTHER, SELFPAY | PROVIDERS: PCP Internal Medicine; Visit Provider Urology | DX: N20.0 Calculus of kidney (principal); N39.3 Stress incontinence (female) (male); Z90.79 Acquired absence of other genital organ(s) | CPT/HCPCS: 51798; 99212 ==

== ENCOUNTER 2023-11-16 08:40 | Outpatient (AMB) | payer MEDICARE, OTHER, SELFPAY ==
--- NOTE | 2023-11-16 08:33 | MHC.OFFVIS ---
Intake Visit Reasons: 3m follow up Intake Note: Patient is present for 3 month f/u Urology Medication:none Antibiotic Allergy:sulfa,amoxicillin Blood Thinner:aspirin Offset Machine Operator Required: No Allergies ciprofloxacin [From CIPRO] Allergy (Severe, Verified 11/16/23 08:35) ERYTHEMA MULTIFORMA Sulfa (Sulfonamide Antibiotics) [SULFA (SULFONAMIDE ANTIBIOTICS)] Allergy (Intermediate, Verified 11/16/23 08:35) RASH amoxicillin Adverse Reaction (Severe, Verified 11/16/23 08:35) Swelling HPI Comments Details: Austen is a pleasant male. He is a patient of Dr. Adams. He is seen for the following urologic conditions - prostate cancer radical prostatectomy 2003 - stress incontinence - nephrolithiasis Telemedicine Evaluation 15 min Consultation [email or web address] Kat Video Occasional flank pain Discussed ultrasound findings Continues to use 3 pads per day with more leakage in the afternoon Able to stop urine consciously Discussed advanced sling Information provided Schedule cysto with discussion Stress incontinence Multiple prior medications Most recent Myrbetriq with minimal benefit Bladder ultrasound - effective bladder emptying Prostate cancer 2003 RALP - PSA 11/06 <0.1 Nephrolithiasis Imaging - 08/11 renal ultrasound bilateral 3 mm stones, 1.6 cm cyst - 08/11 renal ultrasound bilateral 3 mm stones unchanged PFSH Medical History Obesity (BMI 30-39.9) Vaccine counseling Epidermoid cyst Overweight (BMI 25.0-29.9) Smoker History of prostate cancer Vitamin D deficiency Osteoarthritis of right hip Lumbar degenerative disc disease GERD without esophagitis Impaired fasting glucose COPD (chronic obstructive pulmonary disease) Pure hypercholesterolemia Benign essential hypertension Coronary artery disease Surgical History History of bilateral cataract extraction History of lithotripsy History of angioplasty (~1995) History of prostatectomy Family History Father Lung cancer Mother Myocardial infarction CVD (cardiovascular disease) Social History Housing: House Alcohol intake: current Alcohol intake frequency: holidays/special occasions only Patient Tobacco Use Status: Former Tobacco user Tobacco use type: Cigarette e-Cigarette/Vaping Use: Currently Using Second Hand Smoke Exposure: Yes service: No Current occupational status: retired Cognitive needs: No Hearing needs: No Vision needs: Yes Review of Systems Const All systems reviewed & are unremarkable except as noted in HPI and below Reports no additional complaints Resp Reports no additional complaints GI Reports no additional complaints Reports as per HPI Musc Reports no additional complaints Physical Exam Telemedicine evaluation Appropriate responses Regular breathing rate and rhythm HEENT Head: Yes normal to inspection Ears: hearing grossly normal bilaterally Eyes General: appearance normal, both eyes and all related structures Neck Neck: Yes normal visual inspection Chest Chest palpation & inspection: normal inspection of the chest Resp Effort & Inspection: normal respiratory effort and able to speak in complete sentences Telehealth Telehealth Telehealth Platform: [employer] Location of provider rendering services: practice address Location of patient: address on file Patient Identification confirmed using: Name, : Yes Telehealth method: video Patient verbally consented to treatment: Yes Patient verbally consented to billing insurance company: Yes Patient informed of any privacy concerns related to visit: Yes Minutes spent on Phone/Video with Pt.: 15 Assessment & Plan Assessment & Plan (1) Nephrolithiasis: Code(s): N20.0 - Calculus of kidney Category: Medical (2) Stress incontinence: Code(s): N39.3 - Stress incontinence (female) (male) Category: Medical Plan Two month follow-up cysto office Medications: Changed From pyridoxine (vitamin B6) 100 mg PO DAILY 90 days 90 tabs 1RF N20.0 - Calculus of kidney To pyridoxine (vitamin B6) 50 mg PO DAILY 90 days 90 tabs 3RF N20.0 - Calculus of kidney Patient Instructions: Imaging studies, laboratory and physical exam results were discussed and reviewed in detail. No major barriers to patient understanding were identified. An opportunity to ask questions regarding the treatment plan was provided. All questions were answered. The patient expressed understanding and agreement with the above treatment plan. The patient is aware they should contact our office by phone for worsening of their current condition or the appearance of new urologic symptoms. Compliance is encouraged with any medications and followup testing that is ordered. It is a privilege to participate in the urologic care of your patient. If you have any questions or concerns regarding treatment for the above conditions, or other urologic issues, please do not hesitate to contact me. The office telephone contact is [phone]. This note is constructed using voice recognition software. While every effort has been made to ensure accuracy a operator errors may have been included. Yours sincerely, Dr Andre Jurado MD, [facility] - Urology Providers of Expert, Compassionate Care for the Genitourinary System Coding Level of Care Code Tele Est Pt Level 3 (56388) Diagnoses Nephrolithiasis N20.0 Stress incontinence N39.3
== END 2023-11-16 09:19 | disposition home or self-care (01) ==
LOC: HO.HUSH 08:40
PROVIDERS: PCP Internal Medicine; Visit Provider Urology
DX: N20.0 Calculus of kidney (principal); N39.3 Stress incontinence (female) (male)
CPT/HCPCS: 99213

== ENCOUNTER → 2023-11-16 08:40 | Outpatient (BNVA) | payer MEDICARE, OTHER, SELFPAY | PROVIDERS: PCP Internal Medicine; Visit Provider Urology ==

== ENCOUNTER 2023-11-19 06:08 | Outpatient (REF) | payer MEDICARE, OTHER, SELFPAY ==
[2023-11-19 08:25] LABS: Appearance Urine Clear; Color Urine Dark Yellow; Glucose Urine UA Negative (Negative); Leukocyte Esterase Urine Negative (Negative); Nitrite Urine Negative (Negative); PH 5.5 (5.0-9.0); Specific Gravity - Urine 1.025 (1.005-1.025); Urine Blood Negative (Negative); Urine Ketones Trace mg/dL (Negative); Urine Protein Negative (Neg-Trace)
[2023-11-19 08:31] LABS: Basophils Percent Auto 0.6 % (0-2); Eosinophils Absolute Auto 0.1 X10*3/uL (0.0-0.4); Eosinophils Percent Auto 1.9 % (0-4); Hemoglobin 15.1 g/dl (14.0-18.0); Imm Gran Abs Auto 0.02 X10*3/uL (0.00-0.03); Imm Gran Pct Auto 0.3 % (0.0-0.4); Lymphocytes Absolute Auto 1.3 X10*3/uL (1.2-4.9); Lymphocytes Percent Auto 17.5 % (20-40); MANUAL DIFF FLAG SCAN; Mean Corpuscular HGB Conc 32.1 g/dl (31.0-36.0); Mean Corpuscular Hemoglobin 30.1 pg (27.0-33.0); Mean Corpuscular Volume 93.8 fL (80.0-98.0); Monocytes Absolute Auto 0.9 X10*3/uL (0.1-1.2); Monocytes Percent Auto 12.7 % (2-11); Neutrophils Absolute Auto 4.9 x10*3/uL (2.0-8.3); PLT CLUMP 1; Red Blood Count 5.01 X10*6/uL (4.60-5.80); Red Cell Distribution Width 14.2 % (11.0-16.0); SCAN SMEAR FLAG 1
[2023-11-19 08:34] LABS: Estimated Average Glucose 123 mg/dL; Hemoglobin A1c % 5.9 % (<6.0)
[2023-11-19 08:52] LABS: White Blood Count 7.3 X10*3/uL (4.8-10.8)
[2023-11-19 08:53] LABS: Mean Platelet Volume 12.6 fL (9.4-12.4); Platelet Count 184 X10*3/uL (160-400); SLIDE REVIEW VERIFIED
[2023-11-19 09:20] LABS: Alanine Aminotransferase 34 U/L (0-40); Alkaline Phosphatase 89 U/L (39-117); Anion Gap 13 (12-20); Aspartate Amino Transferase 26 U/L (5-37); Bilirubin Total 0.3 mg/dL (0.0-1.0); Blood Urea Nitrogen 23 mg/dL (9-16); Carbon Dioxide 27 mmol/L (22-29); Chloride 105 mmol/L (96-108); Cholesterol 177 mg/dL (<200); Estimated Glomerular Filt Rate > 60; Glucose Fasting 94 mg/dL (60-99); HDL Cholesterol 41 mg/dL (>40); LDL Cholesterol Calculated 85 mg/dL (<100); Potassium 4.3 mmol/L (3.3-5.1); Sodium 141 mmol/L (135-145); TSH reflex Free T4 1.67 uIU/mL (0.32-4.0); Triglycerides 257 mg/dL (<150)
[2023-11-19 11:21] LABS: Prostate Specific Antigen < 0.10 ng/mL (<0.05-4.0)
== END 2023-11-19 06:09 | disposition home or self-care (01) ==
LOC: HO.LAB 06:08
PROVIDERS: Nurse Practitioner Family; PCP Internal Medicine; Visit Provider Internal Medicine
DX: E55.0 Rickets, active (principal); Z12.5 Encounter for screening for malignant neoplasm of prostate; D64.9 Anemia, unspecified; E78.00 Pure hypercholesterolemia, unspecified; E55.9 Vitamin D deficiency, unspecified; R73.01 Impaired fasting glucose; R30.0 Dysuria; Z85.46 Personal history of malignant neoplasm of prostate
CPT/HCPCS: 36415; 80053; 80061; 81003; 82306; 83036; 84153; 84443; 85025

== ENCOUNTER 2023-11-20 09:47 | Outpatient (AMB) | payer MEDICARE, OTHER, SELFPAY ==
--- NOTE | 2023-11-20 09:55 | MHC.PC.OV ---
Vital Signs 11/20/23 10:05 11/20/23 11:01 Height 5 ft 8 in Weight 242 lb 4 oz BMI 36.8 BP 154/78 H 136/86 Blood Pressure Location Lt brachial Lt brachial Position Sitting Sitting Pulse 78 Pulse Source Pulse Oximeter Pulse Oximetry (%) 98 Oxygen Delivery Method Room Air Intake Visit Reasons: 4mth f/u Intake Note: Patient is here to follow up on IFG, CAD, HTN, COPD. Furnace Combustion Analyst Required: No Tag And Label Cutter: Not Required per policy Accompanied by: Self / Same As Patient Allergies ciprofloxacin [From CIPRO] Allergy (Severe, Verified 11/20/23 10:46) ERYTHEMA MULTIFORMA Sulfa (Sulfonamide Antibiotics) [SULFA (SULFONAMIDE ANTIBIOTICS)] Allergy (Intermediate, Verified 11/20/23 10:46) RASH amoxicillin Adverse Reaction (Severe, Verified 11/20/23 10:46) Swelling Medication List - Last Reconciled 11/20/23 by Tha Adams MD aspirin 81 mg PO DAILY atorvastatin 40 mg PO DAILY benazepril 40 mg PO DAILY 90 days cholecalciferol (vitamin D3) 50 mcg PO DAILY diphenhydramine HCl (Benadryl) 50 mg PO BEDTIME PRN fluticasone propionate 50 mcg/actuation 1 spray intranasal DAILY PRN metoprolol succinate ER 150 mg (3 x 50 mg) PO DAILY 90 days multivitamin 1 tab PO DAILY naproxen 500 mg PO BID PRN 30 days pantoprazole (Protonix) 40 mg PO DAILY 90 days pyridoxine (vitamin B6) 50 mg PO DAILY 90 days Tobacco use date assessed: 11/20/23 Fall risk assessment: No Falls in past year Last assessed Fall Risk: 11/20/23 Dental Screening Dental Screen Date: 07/26/23 HPI 4mth f/u HPI Details Patient comes in today for his follow up visit States that he feels okay He denies any headaches or dizziness Denies any chest pains, no SOB No nausea/vomiting, no abdominal pain No change in bowel habits noted Feels that his urinary incontinence / stress incontinence has been getting worse lately and that urology (Dr. Jurado) is planning to do a repeat cystoscopy and considering putting in a bladder sling but patient remains hesitant about going for surgery at this time Needs his Naproxen Rx refilled He had his follow up labs done yesterday - to discuss his results FOR[facility]LY [facility], [facility] Medical History Obesity (BMI 30-39.9) Vaccine counseling Epidermoid cyst Overweight (BMI 25.0-29.9) Smoker History of prostate cancer Vitamin D deficiency Osteoarthritis of right hip Lumbar degenerative disc disease GERD without esophagitis Impaired fasting glucose COPD (chronic obstructive pulmonary disease) Pure hypercholesterolemia Benign essential hypertension Coronary artery disease Surgical History History of bilateral cataract extraction History of lithotripsy History of angioplasty (~1995) History of prostatectomy Family History Father Lung cancer Mother Myocardial infarction CVD (cardiovascular disease) Social History Housing: House Alcohol intake: current Alcohol intake frequency: holidays/special occasions only Patient Tobacco Use Status: Former Tobacco user Tobacco use type: Cigarette e-Cigarette/Vaping Use: Currently Using Second Hand Smoke Exposure: Yes service: No Current occupational status: retired Cognitive needs: No Hearing needs: No Vision needs: Yes Questionnaire Thrive Questionnaire Date Thrive assessed: 07/26/23 CHRISTINA-7 AMB Questionnaire CHRISTINA-7 Date CHRISTINA - 7 assessed: 07/26/23 Source: Developed by Drs. Venkata Hanson, Shala Burdick, Bladimir Mora and colleagues, with an educational iliana from [employer]. Review of Systems Const Denies chills, Denies fatigue, Denies fever(s) and Denies headache(s) ENT Denies dysphagia, Denies dizziness, Denies otalgia, Denies headache(s), Denies neck pain, Denies odynophagia and Denies sore throat Card Denies chest pain, Denies palpitations and Denies dyspnea Resp Denies chest congestion, Denies cough and Denies dyspnea GI Denies abdominal pain, Denies constipation, Denies dysphagia, Reports heartburn (very rarely), Denies diarrhea, Denies nausea, Denies odynophagia and Denies vomiting Denies dysuria, Reports nocturia, Reports urinary frequency and Reports urinary incontinence Musc Denies neck pain Skin/Breast Denies rash Neuro Denies dizziness and Denies headache(s) Psych Reports anxiety Endo Denies fatigue and Denies palpitations Physical exam (Primary Care) Vital Signs: Last Vital Signs Pulse 78 11/20/23 10:05 BP 154/78 H 11/20/23 10:05 Pulse Ox 98 11/20/23 10:05 Oxygen Delivery Method Room Air 11/20/23 10:05 BMI result Body Mass Index 36.8 Tobacco/Smoking Status: Tobacco use Status Tobacco use date assessed 11/20/23 11/20/23 10:09 Patient Tobacco Use Status Former Tobacco user 11/20/23 09:56 Tobacco use type Cigarette 11/20/23 09:56 e-Cigarette/Vaping Use Currently Using 11/20/23 09:56 Thrive Assessment: Date of Thrive Assessment Date Thrive assessed 07/26/23 11/20/23 09:56 Const General: no acute distress and alert HENMT Ears: TM's normal bilaterally and EAC's normal Throat: Yes posterior oropharynx normal and Yes tonsils normal (no TP congestion noted) Neck Neck: Yes no lymphadenopathy and Yes supple Carotids: no bruits Resp Auscultation: clear to auscultation bilaterally, no rales and no wheezes Cardio Rate: regular rate Rhythm: regular rhythm Heart sounds: no murmurs GI Palpation (GI): Soft to palpation and nontender Auscultation: normal bowel sounds General: Yes no CVA tenderness Back/Spine/Pelvis Back: no CVA tenderness Thoracic/Lumbar Spine: thoracic and lumbar spine normal to inspection Skin Rashes: no rashes Extrem General: Yes no clubbing, cyanosis or edema Results Reviewed Results Reviewed: Laboratory Tests 11/19/23 11/19/23 06:36 06:37 WBC 7.3 Hgb 15.1 Hct 47.0 Plt Count 184 Sodium 141 Potassium 4.3 Creatinine 0.91 Estimated GFR > 60 Fasting Glucose 94 Hemoglobin A1c % 5.9 Calcium 9.0 AST 26 ALT 34 Triglycerides 257 H Cholesterol 177 LDL Cholesterol, Calc 85 HDL Cholesterol 41 Prostate Specific Ag < 0.10 25-OH Vitamin D Total 47.0 TSH 1.67 Ur Specific [place] 1.025 Urine Protein Negative Urine Glucose (UA) Negative Urine Blood Negative Urine Nitrite Negative Ur Leukocyte Esterase Negative Assessment and Plan Assessment & Plan (1) Coronary artery disease: Comment: S/P PR, angioplasty and stent insertion in 1995 Code(s): I25.10 - Atherosclerotic heart disease of [place] coronary artery without angina pectoris Qualifiers: Coronary Disease-Associated Artery/Lesion type: [place] artery [place] vs. transplanted heart: [place] heart Associated angina: without angina Qualified Code(s): I25.10 - Atherosclerotic heart disease of [place] coronary artery without angina pectoris Plan: S/P PR, angioplasty and stent insertion in 1995 - patient currently remains asymptomatic (has no anginal symptoms) Continue low dose Aspirin 81 mg QD Follow up with cardiology as scheduled (2) Carotid atherosclerosis: Code(s): I65.29 - Occlusion and stenosis of unspecified carotid artery Qualifiers: Laterality: unspecified laterality Qualified Code(s): I65.29 - Occlusion and stenosis of unspecified carotid artery Plan: He was sent previously for bilateral carotid US for further evaluation, per patient's request (mostly due to his dentist telling him that there were calcifications seen in his neck on routine dental x-rays) but insurance declined to cover his procedure Patient currently has no symptoms related to carotid stenosis and he has no audible bruits noted on carotid exam (3) Pure hypercholesterolemia: Code(s): E78.00 - Pure hypercholesterolemia, unspecified Plan: Results of his labs done yesterday reviewed and discussed with patient - advised that other than his triglycerides, all of his other cholesterol numbers have improved from previous Reinforced low cholesterol diet Continue Atorvastatin 40 mg QD Will recheck his labs and fasting lipids in 4 months for follow up (4) Benign essential hypertension: Code(s): I10 - Essential (primary) hypertension Plan: Reinforced low sodium diet - goal is systolic BP of at least 130 to 140 mm due to his cardiac history Continue Benazepril 10 mg QD and Metoprolol ER 50 mg 3 tablets (total of 150 mg) QD (5) COPD (chronic obstructive pulmonary disease): Code(s): J44.9 - Chronic obstructive pulmonary disease, unspecified Qualifiers: COPD type: unspecified COPD Qualified Code(s): J44.9 - Chronic obstructive pulmonary disease, unspecified Plan: Stable - reinforced again the importance of smoking cessation, even though patient is now only smoking electronic cigarettes that has reportedly very little nicotine in them (6) Impaired fasting glucose: Code(s): R73.01 - Impaired fasting glucose Plan: His HgbA1c is at 5.9% on his labs done yesterday - have advised him that this has been slowly going up over the past year; HgbA1c was at 5.8% a few months ago Reinforced low calorie diet/exercise as tolerated (7) GERD without esophagitis: Code(s): K21.9 - Gastro-esophageal reflux disease without esophagitis Plan: Dietary restrictions reinforced Continue Pantoprazole 40 mg QD (8) Zenker's (hypopharyngeal) diverticulum: Code(s): K22.5 - Diverticulum of esophagus, acquired Plan: His upper GI series done a few months ago revealed (+) mild cricopharyngeal achalasia, tiny Zenker's diverticulum, mildly disorganized esophageal peristalsis and small type I hiatal hernia Reinforced dietary restrictions/modifications to help minimize his symptoms Follow up with GI as scheduled (9) Lumbar degenerative disc disease: Code(s): M51.36 - Other intervertebral disc degeneration, lumbar region Plan: Reinforced activity and weight-lifting restrictions to minimize aggravating his low back pain (10) Osteoarthritis of right hip: Code(s): M16.11 - Unilateral primary osteoarthritis, right hip Qualifiers: Osteoarthritis type: primary Qualified Code(s): M16.11 - Unilateral primary osteoarthritis, right hip Plan: Takes OTC Tylenol or Naproxen 500 mg BID PRN with adequate relief of his symptoms (11) Vitamin D deficiency: Code(s): E55.9 - Vitamin D deficiency, unspecified Plan: Continue Vitamin D3 1000 units QD Will continue to monitor his vitamin D level regularly (12) History of prostate cancer: Code(s): Z85.46 - Personal history of malignant neoplasm of prostate Plan: S/P prostatectomy Follow up with urology as scheduled for continuing surveillance He was previously seeing urology in [place] but his doctor there retired recently and he is now seeing Dr. Jurado here locally (13) Urinary incontinence: Code(s): R32 - Unspecified urinary incontinence Qualifiers: Urinary Incontinence type: unspecified incontinence Qualified Code(s): R32 - Unspecified urinary incontinence Plan: Possible overflow incontinence in light of his recent recurrent suprapubic pressure - may be experiencing outlet obstruction although he had a prostatectomy done He was started on a trial of Myrbetriq 25 mg Q HS but patient states that the Rx did not help and he stopped taking it after a while States that the higher dose of 50 mg was helping only slightly better and he also stopped taking it after a while He is now on Gemtesa 75 mg QD States that Enrique Jurado is considering doing a cystoscopy and inserting a bladder sling but patient remains very hesitant about going for surgery Follow up with urology as scheduled (14) Smoker: Code(s): F17.200 - Nicotine dependence, unspecified, uncomplicated Plan: Counseled again on smoking cessation - patient is now smoking electronic cigarettes exclusively and states that he is still working on quitting completely (15) Obesity (BMI 30-39.9): Code(s): E66.9 - Obesity, unspecified Plan: Reinforced diet/exercise as tolerated/lose weight Plan Follow up in 4 months Orders: Orders Hemoglobin A1c 4 Months R73.01 - Impaired fasting glucose Lipid Panel 4 Months E78.00 - Pure hypercholesterolemia, unspecified Complete Blood Count Auto Diff 4 Months D64.9 - Anemia, unspecified UA CC w/rflx Micro + Cult 4 Months R30.0 - Dysuria Vitamin D 25-OH Total 4 Months E55.9 - Vitamin D deficiency, unspecified Comprehensive [place]. Panel Fast 4 Months E78.00 - Pure hypercholesterolemia, unspecified Medications: Changed From naproxen 500 mg PO BID 30 days PRN 60 tabs 2RF pain M16.11 - Unilateral primary osteoarthritis, right hip To naproxen Take with food as needed for pain 500 mg PO BID 90 days PRN 180 tabs 1RF pain M16.11 - Unilateral primary osteoarthritis, right hip Coding Level of Care Code Est Pt Level 4 (27185) Complex EM visit Add On G2211 Diagnoses Coronary artery disease involving [place] coronary artery of [place] heart without angina pectoris I25.10 Coronary Disease-Associated Artery/Lesion type: [place] artery [place] vs. transplanted heart: [place] heart Associated angina: without angina Carotid atherosclerosis, unspecified laterality I65.29 Laterality: unspecified laterality Pure hypercholesterolemia E78.00 Benign essential hypertension I10 Chronic obstructive pulmonary disease, unspecified COPD type J44.9 COPD type: unspecified COPD Impaired fasting glucose R73.01 GERD without esophagitis K21.9 Zenker's (hypopharyngeal) diverticulum K22.5 Lumbar degenerative disc disease M51.36 Primary osteoarthritis of right hip M16.11 Osteoarthritis type: primary Vitamin D deficiency E55.9 History of prostate cancer Z85.46 Urinary incontinence, unspecified type R32 Urinary Incontinence type: unspecified incontinence Smoker F17.200 Obesity (BMI 30-39.9) E66.9
[2023-11-20 10:05] VITALS: BP 154/78; PULSE 78; O2SAT 98; BMI 36.8
[2023-11-20 11:01] VITALS: BP 136/86
== END 2023-11-20 11:08 | disposition home or self-care (01) ==
PROVIDERS: PCP Internal Medicine; Visit Provider Internal Medicine
DX: I25.10 Atherosclerotic heart disease of native coronary artery without angina pectoris (principal); J44.9 Chronic obstructive pulmonary disease, unspecified; I65.29 Occlusion and stenosis of unspecified carotid artery; E78.00 Pure hypercholesterolemia, unspecified; I10 Essential (primary) hypertension; R73.01 Impaired fasting glucose; K21.9 Gastro-esophageal reflux disease without esophagitis; K22.5 Diverticulum of esophagus, acquired; M51.36 Other intervertebral disc degeneration, lumbar region; M16.11 Unilateral primary osteoarthritis, right hip; E55.9 Vitamin D deficiency, unspecified
CPT/HCPCS: 99214; G2211

== ENCOUNTER 2023-12-07 09:21 | Outpatient (AMB) | payer MEDICARE, OTHER, SELFPAY ==
--- NOTE | 2023-12-07 09:25 | A.OFFPC_ITS ---
Vital Signs 12/07/23 09:26 Height 5 ft 8 in Weight 240 lb BMI 36.5 BP 150/80 H Blood Pressure Location Lt brachial Position Sitting Pulse 75 Pulse Source Pulse Oximeter Pulse Oximetry (%) 97 Oxygen Delivery Method Room Air Intake Visit Reasons: Dizziness Intake Note: Patient is here to follow up on Dizziness. Quill Machine Operator Required: No Chemical Recovery Operator: Not Required per policy Accompanied by: Self / Same As Patient Allergies ciprofloxacin [From CIPRO] Allergy (Severe, Verified 12/07/23 09:33) ERYTHEMA MULTIFORMA Sulfa (Sulfonamide Antibiotics) [SULFA (SULFONAMIDE ANTIBIOTICS)] Allergy (Intermediate, Verified 12/07/23 09:33) RASH amoxicillin Adverse Reaction (Severe, Verified 12/07/23 09:33) Swelling Medication List - Last Reconciled 12/07/23 by Tha Adams MD aspirin 81 mg PO DAILY atorvastatin 40 mg PO DAILY benazepril 40 mg PO DAILY 90 days cholecalciferol (vitamin D3) 50 mcg PO DAILY diphenhydramine HCl (Benadryl) 50 mg PO BEDTIME PRN fluticasone propionate 50 mcg/actuation 1 spray intranasal DAILY PRN metoprolol succinate ER 150 mg (3 x 50 mg) PO DAILY 90 days multivitamin 1 tab PO DAILY naproxen 500 mg PO BID PRN 90 days pantoprazole (Protonix) 40 mg PO DAILY 90 days pyridoxine (vitamin B6) 50 mg PO DAILY 90 days Tobacco use date assessed: 12/07/23 Dental Screening Dental Screen Date: 07/26/23 HPI Dizziness HPI Details Patient comes in today for further evaluation of his recent bouts of dizziness Relates experiencing a spell of dizziness/vertigo last weekend that he states occurred abruptly when he woke up in the middle of the night and it lasted for a few minutes States that he lied down immediately and turned his head to one side and felt like he was going to pass out but the symptoms abruptly stopped He recalls feeling somewhat lightheaded the next day and later had another brief bout of similar dizziness that also lasted for a few minutes but have not recurred since He also relates feeling dizzy for a while after he went on his exercise bike for the first time recently He has (+) Hx of cardiac stenting back in [address] Dubon for cardiology follow up but he has not seen cardiology in a few years now He denies any exertional chest pains lately but does feel SOB with exertion He denies any headaches No nausea/vomiting, no abdominal pain No change in bowel habits noted [facility] Medical History Obesity (BMI 30-39.9) Vaccine counseling Epidermoid cyst Overweight (BMI 25.0-29.9) Smoker History of prostate cancer Vitamin D deficiency Osteoarthritis of right hip Lumbar degenerative disc disease GERD without esophagitis Impaired fasting glucose COPD (chronic obstructive pulmonary disease) Pure hypercholesterolemia Benign essential hypertension Coronary artery disease Surgical History History of bilateral cataract extraction History of lithotripsy History of angioplasty (~1995) History of prostatectomy Family History Father Lung cancer Mother Myocardial infarction CVD (cardiovascular disease) Social History Housing: House Alcohol intake: current Alcohol intake frequency: holidays/special occasions only Patient Tobacco Use Status: Former Tobacco user Tobacco use type: Cigarette e-Cigarette/Vaping Use: Currently Using Second Hand Smoke Exposure: Yes service: No Current occupational status: retired Cognitive needs: No Hearing needs: No Vision needs: Yes Questionnaire Thrive Questionnaire Date Thrive assessed: 07/26/23 CHRISTINA-7 AMB Questionnaire CHRISTINA-7 Date CHRISTINA - 7 assessed: 07/26/23 Source: Developed by Drs. Venkata Hanson, Shala Burdick, Bladimir Mora and colleagues, with an educational iliana from [employer] Review of Systems Const Denies chills, Denies fatigue, Denies fever(s) and Denies headache(s) ENT Denies dysphagia, Reports dizziness (see HPI), Denies otalgia, Denies headache(s), Denies neck pain, Denies odynophagia and Denies sore throat Card Denies chest pain, Denies palpitations and Reports dyspnea on exertion (mild) Resp Denies chest congestion, Denies cough and Reports dyspnea on exertion (mild) GI Denies abdominal pain, Denies constipation, Denies dysphagia, Reports heartburn (very rarely), Denies diarrhea, Denies nausea, Denies odynophagia and Denies vomiting Denies dysuria, Reports nocturia, Reports urinary frequency and Reports urinary incontinence Musc Denies neck pain Skin/Breast Denies rash Neuro Reports dizziness (see HPI) and Denies headache(s) Psych Reports anxiety Endo Denies fatigue and Denies palpitations Physical exam (Primary Care) Vital Signs: Last Vital Signs Pulse 75 12/07/23 09:26 BP 150/80 H 12/07/23 09:26 Pulse Ox 97 12/07/23 09:26 Oxygen Delivery Method Room Air 12/07/23 09:26 BMI result Body Mass Index 36.5 Tobacco/Smoking Status: Tobacco use Status Tobacco use date assessed 12/07/23 12/07/23 09:29 Patient Tobacco Use Status Former Tobacco user 12/07/23 09:29 Tobacco use type Cigarette 12/07/23 09:29 e-Cigarette/Vaping Use Currently Using 12/07/23 09:29 Thrive Assessment: Date of Thrive Assessment Date Thrive assessed 07/26/23 12/07/23 09:29 Const General: no acute distress and alert HENMT Ears: TM's normal bilaterally and EAC's normal Throat: Yes posterior oropharynx normal and Yes tonsils normal (no TP congestion noted) Neck Neck: Yes no lymphadenopathy and Yes supple Carotids: no bruits Resp Auscultation: clear to auscultation bilaterally, no rales and no wheezes Cardio Rate: regular rate Rhythm: regular rhythm Heart sounds: no murmurs GI Palpation (GI): Soft to palpation and nontender Auscultation: normal bowel sounds General: Yes no CVA tenderness Back/Spine/Pelvis Back: no CVA tenderness Thoracic/Lumbar Spine: thoracic and lumbar spine normal to inspection Skin Rashes: no rashes Extrem General: Yes no clubbing, cyanosis or edema Assessment and Plan Assessment & Plan (1) Vertigo: Code(s): R42 - Dizziness and giddiness Plan: Have discussed with patient that his recent symptoms appear to be due to vertigo but his dizziness after working out on his recumbent bike is what is concerning, especially since he also has some CARVAJAL (although this could be also due to physical decompensation as patient has been mostly sedentary) He is again cautioned on avoiding any abrupt changes in position and to avoid any activities that involve heavy exertion for now pending further evaluation (2) Coronary artery disease: Comment: S/P [place], angioplasty and stent insertion in 1995 Code(s): I25.10 - Atherosclerotic heart disease of [place] coronary artery without angina pectoris Qualifiers: Coronary Disease-Associated Artery/Lesion type: [place] artery [place] vs. transplanted heart: [place] heart Associated angina: without angina Qualified Code(s): I25.10 - Atherosclerotic heart disease of [place] coronary artery without angina pectoris Plan: S/P [place], angioplasty and stent insertion in 1995 - patient currently remains asymptomatic (has no anginal symptoms) Continue low dose Aspirin 81 mg QD and Metoprolol ER 150 mg QD He has not seen cardiology in years Will refer him back to [facility] (per request) for further evaluation and management (3) Carotid atherosclerosis: Code(s): I65.29 - Occlusion and stenosis of unspecified carotid artery Qualifiers: Laterality: unspecified laterality Qualified Code(s): I65.29 - Occlusion and stenosis of unspecified carotid artery Plan: He was sent previously for bilateral carotid US for further evaluation, per patient's request (mostly due to his dentist telling him that there were calcifications seen in his neck on routine dental x-rays) but insurance declined to cover his procedure Patient currently has no symptoms related to carotid stenosis and he has no audible bruits noted on carotid exam (4) Pure hypercholesterolemia: Code(s): E78.00 - Pure hypercholesterolemia, unspecified Plan: Reinforced low cholesterol diet Continue Atorvastatin 40 mg QD (5) Benign essential hypertension: Code(s): I10 - Essential (primary) hypertension Plan: Reinforced low sodium diet - goal is systolic BP of at least 130 to 140 mm due to his cardiac history Continue Benazepril 10 mg QD and Metoprolol ER 50 mg 3 tablets (total of 150 mg) QD (6) COPD (chronic obstructive pulmonary disease): Code(s): J44.9 - Chronic obstructive pulmonary disease, unspecified Qualifiers: COPD type: unspecified COPD Qualified Code(s): J44.9 - Chronic obstructive pulmonary disease, unspecified Plan: Stable - reinforced again the importance of smoking cessation, even though patient is now only smoking electronic cigarettes that has reportedly very little nicotine in them (7) Impaired fasting glucose: Code(s): R73.01 - Impaired fasting glucose Plan: His HgbA1c was at 5.9% on his labs done a few weeks ago - have advised him that this has been slowly going up over the past year; HgbA1c was at 5.8% previously Reinforced low calorie diet/exercise as tolerated (8) GERD without esophagitis: Code(s): K21.9 - Gastro-esophageal reflux disease without esophagitis Plan: Dietary restrictions reinforced Continue Pantoprazole 40 mg QD (9) Zenker's (hypopharyngeal) diverticulum: Code(s): K22.5 - Diverticulum of esophagus, acquired Plan: His upper GI series done a few months ago revealed (+) mild cricopharyngeal achalasia, tiny Zenker's diverticulum, mildly disorganized esophageal peristalsis and small type I hiatal hernia Reinforced dietary restrictions/modifications to help minimize his symptoms Follow up with GI as scheduled (10) Lumbar degenerative disc disease: Code(s): M51.36 - Other intervertebral disc degeneration, lumbar region Plan: Reinforced activity and weight-lifting restrictions to minimize aggravating his low back pain (11) Osteoarthritis of right hip: Code(s): M16.11 - Unilateral primary osteoarthritis, right hip Qualifiers: Osteoarthritis type: primary Qualified Code(s): M16.11 - Unilateral primary osteoarthritis, right hip Plan: Takes OTC Tylenol or Naproxen 500 mg BID PRN with adequate relief of his symptoms (12) Vitamin D deficiency: Code(s): E55.9 - Vitamin D deficiency, unspecified Plan: Continue Vitamin D3 1000 units QD Will continue to monitor his vitamin D level regularly (13) History of prostate cancer: Code(s): Z85.46 - Personal history of malignant neoplasm of prostate Plan: S/P prostatectomy in [place] years ago Follow up with urology as scheduled for continuing surveillance He was previously seeing urology in [place] but his doctor there retired recently and he is now seeing Dr. Jurado here locally (14) Urinary incontinence: Code(s): R32 - Unspecified urinary incontinence Qualifiers: Urinary Incontinence type: unspecified incontinence Qualified Code(s): R32 - Unspecified urinary incontinence Plan: Possible overflow incontinence in light of his recent recurrent suprapubic pressure - may be experiencing outlet obstruction although he had a prostatectomy done He was started on a trial of Myrbetriq 25 mg Q HS but patient states that the Rx did not help and he stopped taking it after a while States that the higher dose of 50 mg was helping only slightly better and he also stopped taking it after a while He is now on Gemtesa 75 mg QD States that Enrique Jurado is considering doing a cystoscopy and inserting a bladder sling but patient remains very hesitant about going for surgery Follow up with urology as scheduled (15) Smoker: Code(s): F17.200 - Nicotine dependence, unspecified, uncomplicated Plan: Counseled again on smoking cessation - patient is now smoking electronic cigarettes exclusively and states that he is still working on quitting completely (16) Obesity (BMI 30-39.9): Code(s): E66.9 - Obesity, unspecified Plan: Reinforced diet/exercise as tolerated/lose weight Plan Follow up as scheduled in March 2024 Orders: Referrals Cardiology Referral I25.10 - Atherosclerotic heart disease of [place] coronary artery without angina pectoris Coding Level of Care Code Est Pt Level 4 (01242) Diagnoses Vertigo R42 Coronary artery disease involving [place] coronary artery of [place] heart without angina pectoris I25.10 Coronary Disease-Associated Artery/Lesion type: [place] artery [place] vs. transplanted heart: [place] heart Associated angina: without angina Carotid atherosclerosis, unspecified laterality I65.29 Laterality: unspecified laterality Pure hypercholesterolemia E78.00 Benign essential hypertension I10 Chronic obstructive pulmonary disease, unspecified COPD type J44.9 COPD type: unspecified COPD Impaired fasting glucose R73.01 GERD without esophagitis K21.9 Zenker's (hypopharyngeal) diverticulum K22.5 Lumbar degenerative disc disease M51.36 Primary osteoarthritis of right hip M16.11 Osteoarthritis type: primary Vitamin D deficiency E55.9 History of prostate cancer Z85.46 Urinary incontinence, unspecified type R32 Urinary Incontinence type: unspecified incontinence Smoker F17.200 Obesity (BMI 30-39.9) E66.9
[2023-12-07 09:26] VITALS: BP 150/80; PULSE 75; O2SAT 97; BMI 36.5
== END 2023-12-07 10:04 | disposition home or self-care (01) ==
PROVIDERS: PCP Internal Medicine; Visit Provider Internal Medicine
DX: R42 Dizziness and giddiness (principal); J44.9 Chronic obstructive pulmonary disease, unspecified; I25.10 Atherosclerotic heart disease of native coronary artery without angina pectoris; I65.29 Occlusion and stenosis of unspecified carotid artery; E78.00 Pure hypercholesterolemia, unspecified; I10 Essential (primary) hypertension; R73.01 Impaired fasting glucose; K21.9 Gastro-esophageal reflux disease without esophagitis; M51.36 Other intervertebral disc degeneration, lumbar region; M16.11 Unilateral primary osteoarthritis, right hip; E55.9 Vitamin D deficiency, unspecified; Z85.46 Personal history of malignant neoplasm of prostate
CPT/HCPCS: 99214

== ENCOUNTER 2023-12-16 07:40 | Emergency (ER) | payer MEDICARE, OTHER, SELFPAY ==
[2023-12-16 07:44] VITALS: BP 181/91; PULSE 84; RESP 20; TEMP 37.2; O2SAT 95; BMI 36.5
--- NOTE | 2023-12-16 08:55 | ED_ITS ---
HPI - General Adult General Chief complaint: General Medical Stated complaint: HBP Time Seen by Provider: 12/16/23 07:51 Source: patient and family Mode of arrival: ambulatory Limitations: no limitations History of Present Illness HPI narrative: Patient is a 73-year-old male who presents to the emergency department for evaluation of hypertension. He has been following with his primary care doctor and [facility] over the past month as he has been having increasing blood pressure readings, typically 180/90s. He has also been experiencing brief episodes of dizziness, but are typically exacerbated with head movement or position change. He reports that a spinning sensation and lightheadedness occurs in the morning upon awakening but resolves after a few seconds, was advised by his PCP/security checker that they were concerned this was vertigo, it was not recommended for him to take any medications for this. He admits that throughout the day he does have some dizziness if he stands up too quickly but this also quickly resolves toxic once he sits back down. Overall he is mostly sedentary but he has experienced some dizziness after exercising on a recumbent bike infrequently and dyspnea on exertion. Last week he is was evaluated by [facility], Dr. Cristina for the first time, who advised him to keep a record of his blood pressure readings over the next week before any decisions were made about medication changes and additional studies. He has been using an automated wrist cuff approximately 2 hours after taking his antihypertensives; metoprolol 150 mg, and benazepril 40 mg (which was increased over the past few months). He denies persistent dizziness, near syncope, syncope, chest pain, shortness of breath, difficulty breathing, neck pain, numbness or tingling of his extremities, nausea, vomiting, abdominal pain, headaches, vision changes. Related Data Home Medications ?Medication ?Instructions ?Recorded ?Confirmed aspirin 81 mg tablet,delayed 81 mg PO DAILY 04/28/20 12/07/23 release cholecalciferol (vitamin D3) 50 50 mcg PO DAILY 12/08/20 12/07/23 mcg (2,000 unit) tablet multivitamin 1 tab PO DAILY 12/08/20 12/07/23 diphenhydramine HCl 25 mg capsule 50 mg PO BEDTIME PRN 08/16/23 12/07/23 (Benadryl) Previous Rx's ?Medication ?Instructions ?Recorded fluticasone propionate 50 1 spray intranasal DAILY PRN nasal 04/24/22 mcg/actuation nasal congestion #16 grams spray,suspension atorvastatin 40 mg tablet 40 mg PO DAILY #90 tabs 08/17/23 benazepril 40 mg tablet 40 mg PO DAILY 90 days #90 tabs 08/17/23 metoprolol succinate 50 mg 150 mg (3 x 50 mg) PO DAILY 90 08/17/23 tablet,extended release 24 hr days #270 tabs pantoprazole 40 mg tablet,delayed 40 mg PO DAILY 90 days #90 tabs 08/17/23 release (Protonix) pyridoxine (vitamin B6) 50 mg 50 mg PO DAILY 90 days #90 tabs 11/16/23 tablet naproxen 500 mg tablet 500 mg PO BID PRN pain 90 days 11/20/23 #180 tabs Allergies Allergy/AdvReac Type Severity Reaction Status Date / Time ciprofloxacin [From CIPRO] Allergy Severe ERYTHEMA Verified 12/16/23 07:48 MULTIFORMA Sulfa (Sulfonamide Allergy Intermediate RASH Verified 12/16/23 07:48 Antibiotics) [SULFA (SULFONAMIDE ANTIBIOTICS)] amoxicillin AdvReac Severe Swelling Verified 12/16/23 07:48 Review of Systems 2 Review of Systems: Yes all other systems are reviewed and are negative PMFSH Past Medical History Attestation statement: The following information was validated with the patient. Source: old records reviewed Medical History Obesity (BMI 30-39.9) Vaccine counseling Epidermoid cyst Overweight (BMI 25.0-29.9) Smoker History of prostate cancer Vitamin D deficiency Osteoarthritis of right hip Lumbar degenerative disc disease GERD without esophagitis Impaired fasting glucose COPD (chronic obstructive pulmonary disease) Pure hypercholesterolemia Benign essential hypertension Coronary artery disease Surgical History History of bilateral cataract extraction History of lithotripsy History of angioplasty (~1995) History of prostatectomy Family History Family History Father Lung cancer Mother Myocardial infarction CVD (cardiovascular disease) Social History Social History Housing: House Alcohol intake: current Alcohol intake frequency: a few times a week Patient Tobacco Use Status: Former Tobacco user Tobacco use type: Cigarette Smoked in Last 30 Days: No e-Cigarette/Vaping Use: Currently Using Second Hand Smoke Exposure: Yes Use of substances other than those prescribed or required for medical reasons: No Advance Directives: No Advance Directives Information Provided: Yes Do you have a plan to hurt others: No Plan service: No Current occupational status: retired Cognitive needs: No Hearing needs: No Vision needs: Yes Physical Exam ED Vital Signs: Vital Signs - 24 hr 12/16/23 07:44 12/16/23 09:05 12/16/23 09:05 Temperature 98.9 F Pulse Rate 84 70 69 Respiratory Rate 20 Blood Pressure 181/91 H 153/71 H 129/71 Pulse Oximetry 95 Oxygen Delivery Method Room Air 12/16/23 09:07 12/16/23 09:08 12/16/23 09:09 Temperature Pulse Rate 71 74 77 Respiratory Rate Blood Pressure 164/68 H 162/76 H 153/77 H Pulse Oximetry Oxygen Delivery Method BMI result Body Mass Index 36.5 Appearance: Alert.?Oriented to person, place and time. No acute distress.?Normal affect. Eyes: Pupils equal, round and reactive to light.? ENT: Pharynx normal.?? Neck: Normal inspection.? Neck supple.?? CVS: Heart sounds normal. Normal heart rate and rhythm.? Pulses normal.?? Respiratory: No respiratory distress.? Lung sounds clear to auscultation bilaterally?? Abdomen: Soft and non-tender. Normoactive bowel sounds. ? Skin: Skin warm and dry.? Normal skin color.? .?? Extremities: No lower extremity edema.? No calf ttp? Neuro: Moves all extremities spontaneously. Sensation intact bilaterally. CN II- XII intact. No focal neuro deficits. Ambulates with normal steady gait. Medical Decision Making Medical Decision Making MDM Narrative: Patient is a 73-year-old male with past medical history of obesity, CAD history of [place] with angioplasty in , osteoarthritis, lumbar DJD, GERD, COPD, hypercholesterolemia, hypertension presenting to emergency department for evaluation of elevated blood pressure readings at home reportedly 190s/90s on a wrist cuff which prompted his concern to come to the emergency department. He has been having outpatient workup with his PCP/security checker as per HPI. By his account the systolic blood pressure today was approximately 10-15 points higher than what he has been typically seeing over the past week as he has been tracking his numbers. At the time of my evaluation his blood pressure is 156/79 with an automatic cuff, manually is 1 58/80. As noted in HPI he has been experiencing episodic dizziness with concern for vertigo very both in nature, he does however associated dizziness with position change from sitting to standing, there is some concern for orthostatic hypotension return discussed may be a medication side effect, orthostatic vital signs to be obtained by staff. This time he does not need additional medication management of his hypertension. Pedis serum labs as he stated that his recent outpatient BUN was elevated, on repeat it is consistent today creatinine within normal range. Orthostatic vital signs were negative. He continues to have elevated blood pressure readings but not sternal or rib level. Discussed strict return precautions, outpatient follow-up with PCP/cardiology and stable for discharge. Differential Diagnosis Differential Diagnoses: The differential diagnosis associated with the presentation includes (See narrative above) Admission/Observation Consideration of admission/observation: Escalation of care including admission/observation considered Lab Data MDM Lab Attestation statement: I reviewed the patient's lab results. 12/16/23 09:00 12/16/23 09:00 Labs: Lab Results 12/16/23 Range/Units 09:00 WBC 8.0 (4.8-10.8) X10*3/uL RBC 4.86 (4.60-5.80) X10*6/uL Hgb 14.5 (14.0-18.0) g/dl Hct 43.9 (42.0-52.0) % MCV 90.3 (80.0-98.0) fL MCH 29.8 (27.0-33.0) pg MCHC 33.0 (31.0-36.0) g/dl RDW 14.1 (11.0-16.0) % Plt Count 191 (160-400) X10*3/uL MPV 11.5 (9.4-12.4) fL Immature Gran % (Auto) 0.3 (0.0-0.4) % Neut % (Auto) 75.1 H (45-73) % Lymph % (Auto) 11.0 L (20-40) % Taliaferro % (Auto) 11.9 H (2-11) % Eos % (Auto) 1.3 (0-4) % Baso % (Auto) 0.4 (0-2) % Lymph # (Auto) 0.9 L (1.2-4.9) X10*3/uL [place]ferro # (Auto) 1.0 (0.1-1.2) X10*3/uL Eos # (Auto) 0.1 (0.0-0.4) X10*3/uL Baso # (Auto) 0.0 (0.0-0.2) X10*3/uL Abs Immat Gran (auto) 0.02 (0.00-0.03) X10*3/uL Absolute Neuts (auto) 6.0 (2.0-8.3) x10*3/uL Absolute Nucleated RBC 0.000 (0.0-0.012) X10*3/uL Nucleated RBC % (auto) 0.0 (0.0-0.2) /100WBC Sodium 140 (135-145) mmol/L Potassium 4.2 (3.3-5.1) mmol/L Chloride 106 (96-108) mmol/L Carbon Dioxide 25 (22-29) mmol/L Anion Gap 13 (12-20) BUN 20 H (9-16) mg/dL Creatinine 0.83 (0.5-1.4) mg/dL Estim Creat Clear Calc 92.0 Estimated GFR > 60 Random Glucose 107 (60-115) mg/dL Calcium 9.8 D (8.4-10.2) mg/dL Total Bilirubin 0.4 (0.0-1.0) mg/dL AST 27 (5-37) U/L ALT 33 (0-40) U/L Alkaline Phosphatase 91 (39-117) U/L Total Protein 6.7 (6.5-8.0) g/dL Albumin 3.8 (3.5-5.0) g/dL Independent Historian Clinical information obtained from an independent historian. History obtained from or confirmed by: Spouse External Record Review External record reviewed: Outpatient record Discharge Plan Discharge Clinical Impression: Benign essential hypertension Patient Disposition: Home, Self-Care Instructions: Heart Healthy Diet (ED), How to Take a Blood Pressure (ED), Chronic Hypertension (ED) Additional Instructions: Your blood work today was very reassuring and appears consistent with your prior labs without change. As discussed, it would be alexander to consider purchasing a different blood pressure cuff, as the readings in the emergency department today were different from what you experienced at home with your automated wrist cuff. Please keep an accurate record to discuss with Cardiology so that they may make a decision moving forward about appropriate management and possible medication changes. You may return back to emergency department any new or worsening symptoms or concerns. Prescriptions: No Action atorvastatin 40 mg tablet 40 mg PO DAILY Qty: 90 3RF benazepril 40 mg tablet 40 mg PO DAILY 90 Days Qty: 90 1RF metoprolol succinate 50 mg tablet extended release 24 hr 150 mg PO DAILY 90 Days Qty: 270 3RF pantoprazole [Protonix] 40 mg tablet,delayed release (DR/EC) 40 mg PO DAILY 90 Days Qty: 90 3RF aspirin 81 mg tablet,delayed release (DR/EC) 81 mg PO DAILY multivitamin Tablet 1 tab PO DAILY cholecalciferol (vitamin D3) 50 mcg (2,000 unit) tablet 50 mcg PO DAILY fluticasone propionate 50 mcg/actuation spray,suspension 1 spray intranasal DAILY PRN (Reason: nasal congestion) Qty: 16 5RF Rx Instructions: administer into each nostril diphenhydramine HCl [Benadryl] 25 mg capsule 50 mg PO BEDTIME PRN naproxen 500 mg tablet 500 mg PO BID PRN (Reason: pain) 90 Days Qty: 180 1RF Rx Instructions: Take with food as needed for pain pyridoxine (vitamin B6) 50 mg tablet 50 mg PO DAILY 90 Days Qty: 90 3RF Referrals: Tha Adams MD [Primary Care Provider] - Print Language: South Korean
[2023-12-16 09:04] LABS: MANUAL DIFF FLAG NO
[2023-12-16 09:05] VITALS: BP 129/71; BP 153/71; PULSE 69; PULSE 70
[2023-12-16 09:05] LABS: Basophils Percent Auto 0.4 % (0-2); Eosinophils Absolute Auto 0.1 X10*3/uL (0.0-0.4); Eosinophils Percent Auto 1.3 % (0-4); Hematocrit 43.9 % (42.0-52.0); Hemoglobin 14.5 g/dl (14.0-18.0); Imm Gran Abs Auto 0.02 X10*3/uL (0.00-0.03); Imm Gran Pct Auto 0.3 % (0.0-0.4); Lymphocytes Absolute Auto 0.9 X10*3/uL (1.2-4.9); Mean Corpuscular Hemoglobin 29.8 pg (27.0-33.0); Mean Corpuscular Volume 90.3 fL (80.0-98.0); Mean Platelet Volume 11.5 fL (9.4-12.4); Monocytes Percent Auto 11.9 % (2-11); Neutrophils Percent Auto 75.1 % (45-73); Platelet Count 191 X10*3/uL (160-400); Red Blood Count 4.86 X10*6/uL (4.60-5.80); Red Cell Distribution Width 14.1 % (11.0-16.0)
[2023-12-16 09:07] VITALS: BP 164/68; PULSE 71
[2023-12-16 09:08] VITALS: BP 162/76; PULSE 74
[2023-12-16 09:09] VITALS: BP 153/77; PULSE 77
[2023-12-16 09:23] LABS: Alanine Aminotransferase 33 U/L (0-40); Albumin Level 3.8 g/dL (3.5-5.0); Alkaline Phosphatase 91 U/L (39-117); Anion Gap 13 (12-20); Aspartate Amino Transferase 27 U/L (5-37); Bilirubin Total 0.4 mg/dL (0.0-1.0); Blood Urea Nitrogen 20 mg/dL (9-16); Calcium 9.8 mg/dL (8.4-10.2); Carbon Dioxide 25 mmol/L (22-29); Chloride 106 mmol/L (96-108); Estimated Glomerular Filt Rate > 60; Glucose Random 107 mg/dL (60-115); Potassium 4.2 mmol/L (3.3-5.1); Sodium 140 mmol/L (135-145); Total Protein 6.7 g/dL (6.5-8.0)
[2023-12-16 09:45] VITALS: BP 153/77; PULSE 77; RESP 20; TEMP 37.2; O2SAT 95
== END 2023-12-16 09:59 | disposition home or self-care (01) ==
PROVIDERS: Nurse Practitioner Family; Emergency Provider Emergency Medicine; PCP Internal Medicine
DX: R42 Dizziness and giddiness (principal); I10 Essential (primary) hypertension; Z79.899 Other long term (current) drug therapy
CPT/HCPCS: 36415; 80053; 85025; 99284

== ENCOUNTER 2023-12-21 15:02 | Outpatient (AMB) | payer MEDICARE, OTHER, SELFPAY ==
[2023-12-21 15:03] VITALS: BP 162/90; PULSE 90; O2SAT 94; BMI 36.5
--- NOTE | 2023-12-21 15:03 | A.OFFPC_ITS ---
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 Paper Goods Required: No Allergies ciprofloxacin [From CIPRO] Allergy (Severe, Verified 12/21/23 15:04) ERYTHEMA MULTIFORMA Sulfa (Sulfonamide Antibiotics) [SULFA (SULFONAMIDE ANTIBIOTICS)] Allergy (Intermediate, Verified 12/21/23 15:04) RASH amoxicillin Adverse Reaction (Severe, Verified 12/21/23 15:04) Swelling Medication List - Last Reconciled 12/21/23 by Swapna Pop PA-C aspirin 81 mg PO DAILY atorvastatin 80 mg (2 x 40 mg) PO DAILY benazepril 40 mg PO DAILY 90 days cholecalciferol (vitamin D3) 50 mcg PO DAILY diphenhydramine HCl (Benadryl) 50 mg PO BEDTIME PRN fluticasone propionate 50 mcg/actuation 1 spray intranasal DAILY PRN metoprolol succinate ER 150 mg (3 x 50 mg) PO DAILY 90 days multivitamin 1 tab PO DAILY naproxen 500 mg PO BID PRN 90 days pantoprazole (Protonix) 40 mg PO DAILY 90 days pyridoxine (vitamin B6) 50 mg PO DAILY 90 days Tobacco use date assessed: 12/07/23 Fall risk assessment: No Falls in past year Last assessed Fall Risk: 12/21/23 Dental Screening Dental Screen Date: 07/26/23 HPI High BP HPI Details 73 year old male with past medical histo ry of coronary artery disease, hypertension, hypercholesterolemia, COPD, impaired glucose tolerance, GERD last seen by Dr. Adams 12/07/2023 coming in for acute problem. Review of the notes, patient was seen in [facility] for evaluation of hypertension orthostatic vital signs were negative and labs were within normal limits and follow up with outpatient scoop operator. Blood pressures normalized while in the ER. Patient states he has been having dizzy spells and has been evaluated by the ER and the scoop operator as well as his PCP who agree that dizziness is most likely vertigo. He did purchase a new blood pressure cuff as the last 1 was a wrist cuff and had inaccurate readings he has yet to use the new cuff due to anxiety. He has seen Cardiology and is scheduled for an echo. [facility] Medical History Obesity (BMI 30-39.9) Vaccine counseling Epidermoid cyst Overweight (BMI 25.0-29.9) Smoker History of prostate cancer Vitamin D deficiency Osteoarthritis of right hip Lumbar degenerative disc disease GERD without esophagitis Impaired fasting glucose COPD (chronic obstructive pulmonary disease) Pure hypercholesterolemia Benign essential hypertension Coronary artery disease Surgical History History of bilateral cataract extraction History of lithotripsy History of angioplasty (~1995) History of prostatectomy Family History Father Lung cancer Mother Myocardial infarction CVD (cardiovascular disease) Social History Housing: House Alcohol intake: current Alcohol intake frequency: a few times a week Patient Tobacco Use Status: Former Tobacco user Tobacco use type: Cigarette e-Cigarette/Vaping Use: Currently Using Second Hand Smoke Exposure: Yes service: No Current occupational status: retired Cognitive needs: No Hearing needs: No Vision needs: Yes Questionnaire Thrive Questionnaire Date Thrive assessed: 07/26/23 AUDIT C Alcohol Use Questionnaire (AUDIT-C) 1. How often do you have a drink containing alcohol?: Never 3. How often do you have six or more drinks on one occasion?: Never Total Score: 0 Score Reviewed/Action Taken: Yes CHRISTINA-7 AMB Questionnaire CHRISTINA-7 Date CHRISTINA - 7 assessed: 07/26/23 Source: Developed by Drs. Venkata Hanson, Shala Burdick, Bladimir Mora and colleagues, with an educational iliana from [employer]. Review of Systems Const Denies body aches, Denies chills, Denies fever(s), Denies headache(s) and Denies poor appetite Eyes Reports no additional complaints ENT Reports dizziness and Denies headache(s) Card Denies chest pain, Denies syncope, Denies edema, Denies irregular heart rhythm, Denies lightheadedness and Denies dyspnea Resp Denies cough and Denies dyspnea GI Denies abdominal pain and Denies nausea Reports no additional complaints Musc Reports no additional complaints, Denies abnormal gait and Reports back pain (Low back pain with movement) Skin/Breast Reports system reviewed and no additional complaints, except as documented Neuro Denies abnormal gait, Reports dizziness, Denies syncope and Denies headache(s) Psych Reports no additional complaints Physical exam (Primary Care) Vital Signs: Last Vital Signs Pulse 90 12/21/23 15:03 BP 158/80 H 12/21/23 15:34 Pulse Ox 94 12/21/23 15:03 Oxygen Delivery Method Room Air 12/21/23 15:03 BMI result Body Mass Index 36.5 Tobacco/Smoking Status: Tobacco use Status Tobacco use date assessed 12/07/23 12/21/23 15:04 Patient Tobacco Use Status Former Tobacco user 12/21/23 15:04 Tobacco use type Cigarette 12/21/23 15:04 e-Cigarette/Vaping Use Currently Using 12/21/23 15:04 Thrive Assessment: Date of Thrive Assessment Date Thrive assessed 07/26/23 12/21/23 15:04 Const General: cooperative, healthy appearing, comfortable and no acute distress Orientation/consciousness: patient oriented x3 HENMT Head: Yes normocephalic Ears: hearing grossly normal bilaterally General nose exam: Normal external nose present Eyes General: appearance normal, both eyes and all related structures Conjunctivae: conjunctivae normal Neck Neck: Yes full ROM and Yes no lymphadenopathy Resp Effort & Inspection: normal respiratory effort Auscultation: clear to auscultation bilaterally, no crackles, no rales, no rhonchi and no wheezes Cardio Rate: regular rate Rhythm: regular rhythm Skin General skin exam: no rashes or lesions noted Neuro General: patient oriented x3 Gait exam (Neuro): Normal gait present Extrem General: Yes normal to inspection, Yes full ROM and No edema Psych Affect: normal affect Attitude: cooperative Insight: Good insight present (Psych) Judgement: Good judgement present (Psych) Assessment and Plan Assessment & Plan (1) Benign essential hypertension: Code(s): I10 - Essential (primary) hypertension Plan: Patient has been following with scoop operator for hypertension and ordered an echo which has not been scheduled yet. His blood pressure in the office was mildly elevated today. It appears his blood pressures tend to be elevated due to stress and anxiety. Recommend taking the blood pressure at home while relaxed. We will follow up in 2 weeks for repeat blood pressure check and may consider adding amlodipine 2.5 mg to medication regimen. Plan This note was constructed using voice recognition software. While every effort has been made to ensure accuracy and continuous dryout operator helper, still areas may have been included sometimes these areas may affect the content or meeting of the given symptoms. Total time spent caring for the patient today was 30 minutes. This includes time spent before the visit reviewing the chart, time spent during the visit, and time spent after the visit and documentation. Medications: Changed From atorvastatin 40 mg PO DAILY 90 tabs 3RF To atorvastatin 80 mg (2 x 40 mg) PO DAILY 90 tabs 3RF Coding Level of Care Code Est Pt Level 4 (50600) Diagnoses Benign essential hypertension I10
[2023-12-21 15:34] VITALS: BP 158/80
== END 2023-12-21 15:53 | disposition home or self-care (01) ==
PROVIDERS: PCP Internal Medicine
DX: I10 Essential (primary) hypertension (principal)
CPT/HCPCS: 99214

== ENCOUNTER 2024-01-04 08:47 | Outpatient (AMB) | payer MEDICARE, OTHER, SELFPAY ==
[2024-01-04 08:50] VITALS: BP 148/82; PULSE 87; O2SAT 97; BMI 36.6
--- NOTE | 2024-01-04 08:50 | MHC.PC.OV ---
Vital Signs 01/04/24 08:50 01/04/24 09:13 Height 5 ft 8 in Weight 241 lb 0.2 oz BMI 36.6 BP 148/82 H 156/80 H Blood Pressure Location Lt brachial Lt brachial Position Sitting Sitting Pulse 87 Pulse Source Pulse Oximeter Pulse Oximetry (%) 97 Oxygen Delivery Method Room Air Intake Visit Reasons: f/u blood pressure District Manager Postal Service Required: No Allergies ciprofloxacin [From CIPRO] Allergy (Severe, Verified 01/04/24 08:56) ERYTHEMA MULTIFORMA Sulfa (Sulfonamide Antibiotics) [SULFA (SULFONAMIDE ANTIBIOTICS)] Allergy (Intermediate, Verified 01/04/24 08:56) RASH amoxicillin Adverse Reaction (Severe, Verified 01/04/24 08:56) Swelling Medication List - Last Reconciled 01/04/24 by Swapna Pop PA-C aspirin 81 mg PO DAILY atorvastatin 80 mg (2 x 40 mg) PO DAILY benazepril 40 mg PO DAILY 90 days cholecalciferol (vitamin D3) 50 mcg PO DAILY diphenhydramine HCl (Benadryl) 50 mg PO BEDTIME PRN ezetimibe 10 mg PO DAILY fluticasone propionate 50 mcg/actuation 1 spray intranasal DAILY PRN metoprolol succinate ER 150 mg (3 x 50 mg) PO DAILY 90 days multivitamin 1 tab PO DAILY naproxen 500 mg PO BID PRN 90 days pantoprazole (Protonix) 40 mg PO DAILY 90 days pyridoxine (vitamin B6) 50 mg PO DAILY 90 days Tobacco use date assessed: 12/07/23 Fall risk assessment: No Falls in past year Last assessed Fall Risk: 01/04/24 Dental Screening Dental Screen Date: 07/26/23 HPI f/u blood pressure HPI Details 73-year-old male with past medical history coronary artery disease, hypertension, hypercholesterolemia, COPD, impaired glucose tolerance, GERD, and tobacco abuse last seen 12/21/2023 coming in for blood pressure follow up. Patient states he still has increased anxiety when trying to take blood pressures. States it is due to see sits down to use the cuff his her immediately starts racing and believes his pressures are inaccurate at home. Most pressures are around 140 to 150s systolic and 80s diastolic. He does mentioned also when he goes from sitting to standing he does get lightheaded. Endorses poor fluid intake. He is also scheduled to have an additional echocardiogram at [facility] in the next month. [facility] Medical History Obesity (BMI 30-39.9) Vaccine counseling Epidermoid cyst Overweight (BMI 25.0-29.9) Smoker History of prostate cancer Vitamin D deficiency Osteoarthritis of right hip Lumbar degenerative disc disease GERD without esophagitis Impaired fasting glucose COPD (chronic obstructive pulmonary disease) Pure hypercholesterolemia Benign essential hypertension Coronary artery disease Surgical History History of bilateral cataract extraction History of lithotripsy History of angioplasty (~1995) History of prostatectomy Family History Father Lung cancer Mother Myocardial infarction CVD (cardiovascular disease) Social History Housing: House Alcohol intake: current Alcohol intake frequency: a few times a week Patient Tobacco Use Status: Former Tobacco user Tobacco use type: Cigarette e-Cigarette/Vaping Use: Currently Using Second Hand Smoke Exposure: Yes service: No Current occupational status: retired Cognitive needs: No Hearing needs: No Vision needs: Yes Questionnaire Thrive Questionnaire Date Thrive assessed: 07/26/23 AUDIT C Alcohol Use Questionnaire (AUDIT-C) 1. How often do you have a drink containing alcohol?: Never 3. How often do you have six or more drinks on one occasion?: Never Total Score: 0 Score Reviewed/Action Taken: Yes CHRISTINA-7 AMB Questionnaire CHRISTINA-7 Date CHRISTINA - 7 assessed: 07/26/23 Source: Developed by Drs. Venkata Hanson, Shala Burdick, Bladimir Mora and colleagues, with an educational iliana from [employer] Review of Systems Const Denies body aches, Denies chills, Denies fever(s), Denies headache(s) and Denies poor appetite Eyes Reports no additional complaints ENT Denies dizziness and Denies headache(s) Card Denies chest pain, Denies syncope, Denies edema, Denies irregular heart rhythm, Reports lightheadedness (With positional changes) and Denies dyspnea Resp Denies dyspnea GI Reports no additional complaints Details: Frequent urination is followed by Urology Musc Reports no additional complaints and Denies abnormal gait Skin/Breast Reports system reviewed and no additional complaints, except as documented Neuro Denies abnormal gait, Denies dizziness, Denies syncope and Denies headache(s) Psych Details: Increased anxiety surrounding blood pressure readings Physical exam (Primary Care) Vital Signs: Last Vital Signs Pulse 87 01/04/24 08:50 BP 148/82 H 01/04/24 08:50 Pulse Ox 97 01/04/24 08:50 Oxygen Delivery Method Room Air 01/04/24 08:50 BMI result Body Mass Index 36.6 Tobacco/Smoking Status: Tobacco use Status Tobacco use date assessed 12/07/23 01/04/24 08:57 Patient Tobacco Use Status Former Tobacco user 01/04/24 08:57 Tobacco use type Cigarette 01/04/24 08:57 e-Cigarette/Vaping Use Currently Using 01/04/24 08:57 Thrive Assessment: Date of Thrive Assessment Date Thrive assessed 07/26/23 01/04/24 08:57 Const General: cooperative, healthy appearing, comfortable and no acute distress Orientation/consciousness: patient oriented x3 HENMT Head: Yes normocephalic Ears: hearing grossly normal bilaterally General nose exam: Normal external nose present Eyes General: appearance normal, both eyes and all related structures Conjunctivae: conjunctivae normal Neck Neck: Yes full ROM and Yes no lymphadenopathy Resp Effort & Inspection: normal respiratory effort Auscultation: clear to auscultation bilaterally, no crackles, no rales, no rhonchi and no wheezes Cardio Rate: regular rate Rhythm: regular rhythm Skin General skin exam: no rashes or lesions noted Neuro General: patient oriented x3 Gait exam (Neuro): Normal gait present Extrem General: Yes normal to inspection, Yes full ROM and No edema Psych Affect: normal affect Attitude: cooperative Insight: Good insight present (Psych) Judgement: Good judgement present (Psych) Assessment and Plan Assessment & Plan (1) Benign essential hypertension: Code(s): I10 - Essential (primary) hypertension Plan: Blood pressure was elevated again in the office today. Patient states he believes the elevation is due to anxiety. He is declining an additional medication to his regimen at this time and would like to continue with conservative measures and re-evaluate. Advised patient to increase fluid intake, decrease salt intake, and encouraged healthy diet and regular exercise. Advised patient to continue taking blood pressures at home when relaxed and sitting for several minutes. We will follow up in 1 month and if pressure continues to be elevated we may need to add additional medication to his regimen. Plan This note was constructed using voice recognition software. While every effort has been made to ensure accuracy and wireless internet installer, still areas may have been included sometimes these areas may affect the content or meeting of the given symptoms. Total time spent caring for the patient today was 30 minutes. This includes time spent before the visit reviewing the chart, time spent during the visit, and time spent after the visit and documentation. Coding Level of Care Code Est Pt Level 3 (34072) Diagnoses Benign essential hypertension I10
[2024-01-04 09:13] VITALS: BP 156/80
== END 2024-01-04 09:28 | disposition home or self-care (01) ==
PROVIDERS: PCP Internal Medicine
DX: I10 Essential (primary) hypertension (principal)
CPT/HCPCS: 99213

== ENCOUNTER 2024-02-04 08:18 | Outpatient (AMB) | payer MEDICARE, OTHER, SELFPAY ==
--- NOTE | 2024-02-04 08:37 | A.OFFPC_ITS ---
Vital Signs 02/04/24 08:38 02/04/24 08:54 Height 5 ft 8 in Weight 241 lb BMI 36.6 BP 142/86 H 170/88 H Blood Pressure Location Lt brachial Lt brachial Position Sitting Sitting Pulse 80 Pulse Source Pulse Oximeter Pulse Oximetry (%) 95 Oxygen Delivery Method Room Air Intake Visit Reasons: f/u HTN Space Operations Officer Required: No Accompanied by: Self / Same As Patient Allergies ciprofloxacin [From CIPRO] Allergy (Severe, Verified 02/04/24 08:54) ERYTHEMA MULTIFORMA Sulfa (Sulfonamide Antibiotics) [SULFA (SULFONAMIDE ANTIBIOTICS)] Allergy (Intermediate, Verified 02/04/24 08:54) RASH amoxicillin Adverse Reaction (Severe, Verified 02/04/24 08:54) Swelling Medication List - Last Reconciled 02/04/24 by Swapna Pop PA-C aspirin 81 mg PO DAILY atorvastatin 80 mg (2 x 40 mg) PO DAILY benazepril 40 mg PO DAILY 90 days cholecalciferol (vitamin D3) 50 mcg PO DAILY diphenhydramine HCl (Benadryl) 50 mg PO BEDTIME PRN ezetimibe 10 mg PO DAILY fluticasone propionate 50 mcg/actuation 1 spray intranasal DAILY PRN metoprolol succinate ER 150 mg (3 x 50 mg) PO DAILY 90 days multivitamin 1 tab PO DAILY naproxen 500 mg PO BID PRN 90 days pantoprazole (Protonix) 40 mg PO DAILY 90 days pyridoxine (vitamin B6) 50 mg PO DAILY 90 days Tobacco use date assessed: 12/07/23 Fall risk assessment: No Falls in past year Last assessed Fall Risk: 02/04/24 Dental Screening Dental Screen Date: 07/26/23 HPI f/u HTN HPI Details 73-year-old male with past medical histo ry coronary artery disease, hypertension, hypercholesterolemia, COPD, impaired glucose tolerance, GERD, and tobacco abuse last seen 12/21/2023 coming in for blood pressure follow up. Patient states he has been unable to take her blood pressures at home because even when he is relaxed if he starts to take his blood pressure his anxiety spikes and heart rate goes up and does not feel the blood pressure is accurate. He denies any symptoms related to elevated blood pressure. He was previously having lightheadedness and dizziness when going from sitting to standing which has resolved. He is being seen by [facility] and was started on ezetimibe and increase atorvastatin to 80 mg for elevated cholesterol and is due to have repeat blood drawn 1 month with them. He is also being scheduled for repeat echocardiogram in the next couple of weeks. [facility] Medical History Obesity (BMI 30-39.9) Vaccine counseling Epidermoid cyst Overweight (BMI 25.0-29.9) Smoker History of prostate cancer Vitamin D deficiency Osteoarthritis of right hip Lumbar degenerative disc disease GERD without esophagitis Impaired fasting glucose COPD (chronic obstructive pulmonary disease) Pure hypercholesterolemia Benign essential hypertension Coronary artery disease Surgical History History of bilateral cataract extraction History of lithotripsy History of angioplasty (~1995) History of prostatectomy Family History Father Lung cancer Mother Myocardial infarction CVD (cardiovascular disease) Social History Housing: House Alcohol intake: current Alcohol intake frequency: a few times a week Patient Tobacco Use Status: Former Tobacco user Tobacco use type: Cigarette e-Cigarette/Vaping Use: Currently Using Second Hand Smoke Exposure: Yes service: No Current occupational status: retired Cognitive needs: No Hearing needs: No Vision needs: Yes Questionnaire PHQ-9 Over the last 2 weeks, how often have you been bothered by any of the following problems? 1. Little interest or pleasure in doing things: not at all 2. Feeling down, depressed, or hopeless: not at all 3. Trouble falling or staying asleep, or sleeping too much: not at all 4. Feeling tired or having little energy: not at all 5. Poor appetite or overeating: not at all 6. Feeling bad about yourself - or that you are a failure or have let yourself or your family down: not at all 7. Trouble concentrating on things, such as reading the newspaper or watching television: not at all 8. Moving or speaking so slowly that other people could have noticed. Or the opposite - being so fidgety or restless that you have been moving around a lot more than usual: not at all 9. Thoughts that you would be better off or of hurting yourself in some way: not at all Total score: 0 Depression Screening Interpretation: Negative Depression Screening Done: Yes 22113 - PHQ-9 Billing: Yes Source: Developed by Drs. Venkata Hanson, Shala Burdick, Bladimir Mroa and colleagues, with an educational iliana from [employer]. Thrive Questionnaire Date Thrive assessed: 07/26/23 Are you currently unemployed and looking for a job?: No AUDIT C Alcohol Use Questionnaire (AUDIT-C) 2. How many drinks containing alcohol do you have on a typical day when you are drinking?: 1 or 2 3. How often do you have six or more drinks on one occasion?: Never Total Score: 0 CHRISTINA-7 AMB Questionnaire CHRISTINA-7 Date CHRISTINA - 7 assessed: 07/26/23 Source: Developed by Drs. Venkata Hanson, Shala Burdick, Bladimir Mora and colleagues, with an educational iliana from [employer]. Review of Systems Const Denies chills, Denies fever(s) and Denies headache(s) Eyes Denies change in vision ENT Denies dizziness and Denies headache(s) Card Denies chest pain, Denies edema, Denies lightheadedness and Denies dyspnea Resp Denies dyspnea GI Denies abdominal pain, Denies nausea and Denies vomiting Reports no additional complaints Musc Reports no additional complaints and Denies abnormal gait Skin/Breast Reports system reviewed and no additional complaints, except as documented Neuro Denies abnormal gait, Denies dizziness and Denies headache(s) Psych Reports no additional complaints Physical exam (Primary Care) Vital Signs: Last Vital Signs Pulse 80 02/04/24 08:38 BP 142/86 H 02/04/24 08:38 Pulse Ox 95 02/04/24 08:38 Oxygen Delivery Method Room Air 02/04/24 08:38 BMI result Body Mass Index 36.6 Tobacco/Smoking Status: Tobacco use Status Tobacco use date assessed 12/07/23 02/04/24 08:37 Patient Tobacco Use Status Former Tobacco user 02/04/24 08:37 Tobacco use type Cigarette 02/04/24 08:37 e-Cigarette/Vaping Use Currently Using 02/04/24 08:37 PHQ-9: PHQ-9 Score PHQ-9: Total score 0 02/04/24 08:43 Depression Screening Interpretation: Negative Thrive Assessment: Date of Thrive Assessment Date Thrive assessed 07/26/23 02/04/24 08:37 Const General: cooperative, healthy appearing, comfortable and no acute distress Orientation/consciousness: patient oriented x3 HENMT Head: Yes normocephalic Ears: hearing grossly normal bilaterally General nose exam: Normal external nose present Eyes General: appearance normal, both eyes and all related structures Conjunctivae: conjunctivae normal Neck Neck: Yes full ROM and Yes no lymphadenopathy Resp Effort & Inspection: normal respiratory effort Auscultation: clear to auscultation bilaterally, no crackles, no rales, no rhonchi and no wheezes Cardio Rate: regular rate Rhythm: regular rhythm Skin General skin exam: no rashes or lesions noted Neuro General: patient oriented x3 Gait exam (Neuro): Normal gait present Extrem General: Yes normal to inspection, Yes full ROM and No edema Psych Affect: normal affect Attitude: cooperative Insight: Good insight present (Psych) Judgement: Good judgement present (Psych) Assessment and Plan Assessment & Plan (1) Vertigo: Code(s): R42 - Dizziness and giddiness Plan: Patient has dizziness and lightheadedness has resolved. Continue to monitor symptoms. (2) GERD (gastroesophageal reflux disease): Comment: Very pleasant Gent, anxious Acid reflux responded well to pantoprazole 40 mg daily Declined EGD Code(s): K21.9 - Gastro-esophageal reflux disease without esophagitis Plan: Avoid trigger foods such as citrus, tomato products, soda, caffeine, spicy foods and other foods that may be irritating to your stomach. Avoid laying flat 3-4 hours after eating and elevate the head of the bed 30 degrees to prevent acid from moving into the esophagus. Continue on pantoprazole (3) Obesity (BMI 30-39.9): Code(s): E66.9 - Obesity, unspecified Plan: Encouraged healthy diet and regular exercise. He does not regularly exercise but he did recently buy a stationary bike that he will begin to use. (4) Smoker: Code(s): F17.200 - Nicotine dependence, unspecified, uncomplicated Plan: Strongly advised to stop vaping. Patient is currently using a vape with very little nicotine and has no interest in quitting. (5) COPD (chronic obstructive pulmonary disease): Code(s): J44.9 - Chronic obstructive pulmonary disease, unspecified Qualifiers: COPD type: unspecified COPD Qualified Code(s): J44.9 - Chronic obstructive pulmonary disease, unspecified Plan: Stable on current med regimen. He has not been using his inhaler for his COPD and denies any shortness of breath. (6) Benign essential hypertension: Code(s): I10 - Essential (primary) hypertension Plan: Patient's blood pressure was elevated in the office today 142/86 and elevated further when retaken 170/88. Discussed with patient the importance of addressing contributing factors such as vaping, diet, and obesity. Discussed with patient we do need a 3rd medication added to his regimen as his values are persistently high. We will start amlodipine 2.5 mg at this time and re-evaluate at next appointment. Encouraged patient to continue taking blood pressures at home on this new medication. Also discussed with the patient if he becomes dizzy or lightheaded to discontinue his medication and reach out to the office. (7) Pure hypercholesterolemia: Code(s): E78.00 - Pure hypercholesterolemia, unspecified Plan: Avoid foods that are high in cholesterol such as red meat, fried foods, eggs and baked goods. Triglyceride goal of less than 150 and LDL goal of less than 100. Continue on atorvastatin and Ezetimibe (8) Impaired fasting glucose: Code(s): R73.01 - Impaired fasting glucose Plan: Decrease the amount of carbohydrates such as pasta, bread, rice, and potatoes and limit the amount of sweets. Although fruits are generally healthy they should be eaten in moderation as they are still high in sugar. Hemoglobin A1c goal of less than 7%. Plan This note was constructed using voice recognition software. While every effort has been made to ensure accuracy and cable supervisor, still areas may have been included sometimes these areas may affect the content or meeting of the given symptoms. Total time spent caring for the patient today was 30 minutes. This includes time spent before the visit reviewing the chart, time spent during the visit, and time spent after the visit and documentation. Medications: New amlodipine 2.5 mg PO DAILY 30 tabs 2RF Coding Level of Care Code Est Pt Level 4 (47996) Diagnoses Vertigo R42 GERD (gastroesophageal reflux disease) K21.9 Obesity (BMI 30-39.9) E66.9 Smoker F17.200 Chronic obstructive pulmonary disease, unspecified COPD type J44.9 COPD type: unspecified COPD Benign essential hypertension I10 Pure hypercholesterolemia E78.00 Impaired fasting glucose R73.01
[2024-02-04 08:38] VITALS: BP 142/86; PULSE 80; O2SAT 95; BMI 36.6
[2024-02-04 08:54] VITALS: BP 170/88
== END 2024-02-04 09:03 | disposition home or self-care (01) ==
PROVIDERS: PCP Internal Medicine
DX: R42 Dizziness and giddiness (principal); K21.9 Gastro-esophageal reflux disease without esophagitis; E66.9 Obesity, unspecified; F17.200 Nicotine dependence, unspecified, uncomplicated; J44.9 Chronic obstructive pulmonary disease, unspecified; I10 Essential (primary) hypertension; E78.00 Pure hypercholesterolemia, unspecified; R73.01 Impaired fasting glucose

== ENCOUNTER → 2024-02-04 08:18 | Outpatient (BNVA) | payer MEDICARE, OTHER, SELFPAY | PROVIDERS: PCP Internal Medicine | DX: I10 Essential (primary) hypertension (principal); R42 Dizziness and giddiness; K21.9 Gastro-esophageal reflux disease without esophagitis; E66.9 Obesity, unspecified; J44.9 Chronic obstructive pulmonary disease, unspecified; E78.00 Pure hypercholesterolemia, unspecified; R73.01 Impaired fasting glucose; F17.200 Nicotine dependence, unspecified, uncomplicated; Z71.6 Tobacco abuse counseling | CPT/HCPCS: 99212 ==

== ENCOUNTER 2024-04-01 06:12 | Outpatient (REF) | payer MEDICARE, OTHER, SELFPAY ==
[2024-04-01 06:27] LABS: MANUAL DIFF FLAG NO
[2024-04-01 07:06] LABS: Basophils Percent Auto 0.4 % (0-2); Eosinophils Absolute Auto 0.2 X10*3/uL (0.0-0.4); Hemoglobin 14.7 g/dl (14.0-18.0); Imm Gran Abs Auto 0.02 X10*3/uL (0.00-0.03); Imm Gran Pct Auto 0.2 % (0.0-0.4); Lymphocytes Absolute Auto 1.5 X10*3/uL (1.2-4.9); Lymphocytes Percent Auto 16.9 % (20-40); Mean Corpuscular Hemoglobin 29.7 pg (27.0-33.0); Mean Corpuscular Volume 92.9 fL (80.0-98.0); Mean Platelet Volume 12.7 fL (9.4-12.4); Monocytes Absolute Auto 0.9 X10*3/uL (0.1-1.2); Monocytes Percent Auto 10.1 % (2-11); Neutrophils Absolute Auto 6.3 x10*3/uL (2.0-8.3); Neutrophils Percent Auto 70.4 % (45-73); Platelet Count 198 X10*3/uL (160-400); Red Blood Count 4.95 X10*6/uL (4.60-5.80); Red Cell Distribution Width 14.2 % (11.0-16.0)
[2024-04-01 07:08] LABS: Appearance Urine Clear; Color Urine Yellow; Glucose Urine UA Negative (Negative); Leukocyte Esterase Urine Negative (Negative); Nitrite Urine Negative (Negative); PH 5.5 (5.0-9.0); Urine Blood Negative (Negative); Urine Ketones Negative (Negative); Urine Protein Negative (Neg-Trace)
[2024-04-01 07:20] LABS: Estimated Average Glucose 123 mg/dL; Hemoglobin A1C 156.8162 umol/L; Hemoglobin A1c % 5.9 % (<6.0); Total Hemoglobin (HGBA1C) 3816.5409 umol/L
[2024-04-01 07:37] LABS: Alanine Aminotransferase 41 U/L (0-40); Albumin Level 3.9 g/dL (3.5-5.0); Alkaline Phosphatase 86 U/L (39-117); Anion Gap 12 (12-20); Aspartate Amino Transferase 34 U/L (5-37); Bilirubin Total 0.5 mg/dL (0.0-1.0); Blood Urea Nitrogen 26 mg/dL (9-16); Calcium 8.8 mg/dL (8.4-10.2); Carbon Dioxide 25 mmol/L (22-29); Chloride 109 mmol/L (96-108); Cholesterol 145 mg/dL (<200); Estimated Glomerular Filt Rate > 60; Glucose Fasting 99 mg/dL (60-99); HDL Cholesterol 39 mg/dL (>40); LDL Cholesterol Calculated 73 mg/dL (<100); Potassium 4.1 mmol/L (3.3-5.1); Sodium 142 mmol/L (135-145); Total Protein 6.9 g/dL (6.5-8.0); Triglycerides 166 mg/dL (<150)
[2024-04-01 07:41] LABS: Vitamin D 25-OH Total 45.7 ng/mL (>30)
== END 2024-04-01 06:13 | disposition home or self-care (01) ==
LOC: HO.LAB 06:12
PROVIDERS: PCP Internal Medicine; Visit Provider Internal Medicine
DX: D64.9 Anemia, unspecified (principal); R73.01 Impaired fasting glucose; E78.00 Pure hypercholesterolemia, unspecified; R30.0 Dysuria; E55.9 Vitamin D deficiency, unspecified
CPT/HCPCS: 36415; 80053; 80061; 81003; 82306; 83036; 85025

== ENCOUNTER 2024-04-03 08:48 | Outpatient (AMB) | payer MEDICARE, OTHER, SELFPAY ==
[2024-04-03 08:53] VITALS: BP 124/86; PULSE 76; O2SAT 98; BMI 38.2
--- NOTE | 2024-04-03 08:53 | A.OFFPC_ITS ---
Vital Signs 04/03/24 08:53 Height 5 ft 8 in Weight 251 lb BMI 38.2 BP 124/86 Blood Pressure Location Lt brachial Position Sitting Pulse 76 Pulse Source Pulse Oximeter Pulse Oximetry (%) 98 Oxygen Delivery Method Room Air Intake Visit Reasons: [facility] Band Straightener Required: No Accompanied by: Self / Same As Patient Allergies ciprofloxacin [From CIPRO] Allergy (Severe, Verified 04/03/24 09:05) ERYTHEMA MULTIFORMA Sulfa (Sulfonamide Antibiotics) [SULFA (SULFONAMIDE ANTIBIOTICS)] Allergy (Intermediate, Verified 04/03/24 09:05) RASH amoxicillin Adverse Reaction (Severe, Verified 04/03/24 09:05) Swelling Medication List - Last Reconciled 04/03/24 by Tha Adams MD amlodipine 2.5 mg PO DAILY aspirin 81 mg PO DAILY atorvastatin 80 mg (2 x 40 mg) PO DAILY benazepril 40 mg PO DAILY 90 days cholecalciferol (vitamin D3) 50 mcg PO DAILY diphenhydramine HCl (Benadryl) 50 mg PO BEDTIME PRN ezetimibe 10 mg PO DAILY fluticasone propionate 50 mcg/actuation 1 spray intranasal DAILY PRN metoprolol succinate ER 150 mg (3 x 50 mg) PO DAILY 90 days multivitamin 1 tab PO DAILY naproxen 500 mg PO BID PRN 90 days pantoprazole (Protonix) 40 mg PO DAILY 90 days pyridoxine (vitamin B6) 50 mg PO DAILY 90 days Tobacco use date assessed: 04/03/24 Fall risk assessment: No Falls in past year Last assessed Fall Risk: 04/03/24 Dental Screening Dental Screen Date: 04/03/24 Did you have a dental visit in the last 12 months?: Yes Did you have a dental problem in the last 6 months where you did not have access to dental care?: No Was dental information given to patient?: Patient has dentist HPI 4mt f/u HPI Details Patient comes in today for his follow up visit States that he feels okay He denies any headaches or dizziness Denies any chest pains, no increased SOB No nausea/vomiting, no abdominal pain No change in bowel habits noted States that his urinary incontinence has been getting worse He was scheduled for a sling procedure but he had to cancel because he contracted COVID and he has not been able to reschedule his procedure yet He had his follow up labs done a couple of days ago - to discuss his results He would also like to get his flu shot today [facility] Medical History (Updated 04/03/24 @ 09:24 by Tha Adams MD) Obesity (BMI 30-39.9) Vaccine counseling Epidermoid cyst Smoker History of prostate cancer Vitamin D deficiency Osteoarthritis of right hip Lumbar degenerative disc disease GERD without esophagitis Impaired fasting glucose COPD (chronic obstructive pulmonary disease) Pure hypercholesterolemia Benign essential hypertension Coronary artery disease Surgical History History of bilateral cataract extraction History of lithotripsy History of angioplasty (~1995) History of prostatectomy Family History Father Lung cancer Mother Myocardial infarction CVD (cardiovascular disease) Social History Housing: House Alcohol intake: current Alcohol intake frequency: a few times a week Patient Tobacco Use Status: Former Tobacco user Tobacco use type: Cigarette e-Cigarette/Vaping Use: Currently Using Second Hand Smoke Exposure: Yes service: No Current occupational status: retired Cognitive needs: No Hearing needs: No Vision needs: Yes Questionnaire PHQ-9 Over the last 2 weeks, how often have you been bothered by any of the following problems? 1. Little interest or pleasure in doing things: not at all 2. Feeling down, depressed, or hopeless: not at all 3. Trouble falling or staying asleep, or sleeping too much: not at all 4. Feeling tired or having little energy: not at all 5. Poor appetite or overeating: not at all 6. Feeling bad about yourself - or that you are a failure or have let yourself or your family down: not at all 7. Trouble concentrating on things, such as reading the newspaper or watching television: not at all 8. Moving or speaking so slowly that other people could have noticed. Or the opposite - being so fidgety or restless that you have been moving around a lot more than usual: not at all 9. Thoughts that you would be better off or of hurting yourself in some way: not at all Total score: 0 Depression Screening Interpretation: Negative Depression Screening Done: Yes 86652 - PHQ-9 Billing: Yes Source: Developed by Drs. Venkata Hanson, Shala Burdick, Bladimir Mora and colleagues, with an educational iliana from [employer]. Thrive Questionnaire Date Thrive assessed: 04/03/24 I am a: Patient What is your living situation today?: I have a steady place to live Within the past 12 months, did the food you bought not last and you didn't have the money to get more?: Never true Within the past 12 months, did you worry whether your food would run out before you got money to buy more?: Never true Do you have trouble paying for medicines?: No Do you have trouble getting transportation to medical appointments?: No Do you have trouble paying your heating and electricity bill?: No Do you have trouble taking care of your child, family member or friend?: No Do you have trouble with day-to-day activities such as bathing, preparing meals, shopping, managing finances, etc.?: No Are you currently unemployed and looking for a job?: No Are you interested in more education?: No Please select the resources that you would like help with: None Currently or been in a relationship where the following occur: No concerns reported THRIVE Score: 0 AUDIT C Alcohol Use Questionnaire (AUDIT-C) 1. How often do you have a drink containing alcohol?: Monthly or less 2. How many drinks containing alcohol do you have on a typical day when you are drinking?: 1 or 2 3. How often do you have six or more drinks on one occasion?: Never Total Score: 1 Score Reviewed/Action Taken: Yes CHRISTINA-7 AMB Questionnaire CHRISTINA-7 Date CHRISTINA - 7 assessed: 04/03/24 Feeling nervous, anxious, or on edge: 0 = Not at all Not being able to stop or control worryin = Not at all Worrying too much about different things: 0 = Not at all Trouble relaxin = Not at all Being so restless that it is hard to sit still: 0 = Not at all Becoming easily annoyed or irritable: 0 = Not at all Feeling afraid as if something awful might happen: 0 = Not at all Total CHRISTINA-7 score (0-4 normal; 5-9 mild; 10-14 moderate; 15-21 severe): 0 Source: Developed by Drs. Venkata Hanson, Shala Burdick, Bladimir Mora and colleagues, with an educational iliana from [employer]. Review of Systems Const Denies chills, Denies fatigue, Denies fever(s) and Denies headache(s) ENT Denies dysphagia, Denies dizziness, Denies otalgia, Denies headache(s), Denies neck pain, Denies odynophagia and Denies sore throat Card Denies chest pain, Denies palpitations and Denies dyspnea Resp Denies chest congestion, Denies cough and Denies dyspnea GI Denies abdominal pain, Denies constipation, Denies dysphagia, Denies heartburn, Denies diarrhea, Denies nausea, Denies odynophagia and Denies vomiting Denies dysuria, Reports nocturia, Reports urinary frequency and Reports urinary incontinence Musc Denies neck pain Skin/Breast Denies rash Neuro Denies dizziness and Denies headache(s) Psych Reports anxiety Endo Denies fatigue and Denies palpitations Physical exam (Primary Care) Vital Signs: Last Vital Signs Pulse 76 04/03/24 08:53 BP 124/86 04/03/24 08:53 Pulse Ox 98 04/03/24 08:53 Oxygen Delivery Method Room Air 04/03/24 08:53 BMI result Body Mass Index 38.2 Tobacco/Smoking Status: Tobacco use Status Tobacco use date assessed 04/03/24 04/03/24 08:56 Patient Tobacco Use Status Former Tobacco user 04/03/24 08:56 Tobacco use type Cigarette 04/03/24 08:56 e-Cigarette/Vaping Use Currently Using 04/03/24 08:56 PHQ-9: PHQ-9 Score PHQ-9: Total score 0 04/03/24 09:37 Depression Screening Interpretation: Negative Thrive Assessment: Date of Thrive Assessment Date Thrive assessed 04/03/24 04/03/24 08:56 Currently or been in a relationship where the following occur: No concerns reported Const General: no acute distress and alert HENMT Ears: TM's normal bilaterally and EAC's normal Throat: Yes posterior oropharynx normal and Yes tonsils normal (no TP congestion noted) Neck Neck: Yes no lymphadenopathy and Yes supple Carotids: no bruits Resp Auscultation: clear to auscultation bilaterally, no rales and no wheezes Cardio Rate: regular rate Rhythm: regular rhythm Heart sounds: no murmurs GI Palpation (GI): Soft to palpation and nontender Auscultation: normal bowel sounds General: Yes no CVA tenderness Back/Spine/Pelvis Back: no CVA tenderness Thoracic/Lumbar Spine: thoracic and lumbar spine normal to inspection Skin Rashes: no rashes Extrem General: Yes no clubbing, cyanosis or edema Office Procedures Flu Questionnaire Does the patient have a severe egg allergy?: No Does the patient have severe life threatening allergies?: No Does the patient have a fever or illness today?: No Has the patient ever had Guillain-Marsing Syndrome?: No Has the patient ever had any past reaction to a flu shot?: No Immunizations Fluarix Triv 8460-2573 (PF) 45 mcg (15 mcg x 3)/0.5 mL IM syringe Performing Provider: Tha Adams MD Performing Location: [facility] Administered by: NANNETTE Wilson on 04/03/24 09:37 Dose Route Admin Location Dispensed Lot Number Expiration Date NDC Banquet Coordinator 0.5 mL IM Left Deltoid 0.5 mL [id number] 11/17/24 [id number] [email or web address] VIS Given Date VIS Provided VIS Publication Date 04/03/24 Single Vaccine 20 Eligibility Eligibility Date Funding Source Not [facility] Eligible 04/03/24 Private Results Reviewed Results Reviewed: Laboratory Tests 04/01/24 04/01/24 06:25 06:26 WBC 9.0 Hgb 14.7 Hct 46.0 Plt Count 198 Sodium 142 Potassium 4.1 Creatinine 0.83 Estimated GFR > 60 Fasting Glucose 99 Hemoglobin A1c % 5.9 Calcium 8.8 D AST 34 ALT 41 H Triglycerides 166 H Cholesterol 145 LDL Cholesterol, Calc 73 HDL Cholesterol 39 L 25-OH Vitamin D Total 45.7 Ur Specific [place] 1.020 Urine Protein Negative Urine Glucose (UA) Negative Urine Blood Negative Urine Nitrite Negative Ur Leukocyte Esterase Negative Coding Level of Care Code Est Pt Level 4 (35530) Complex EM visit Add On G2211 Diagnoses Coronary artery disease involving [place] coronary artery of [place] heart without angina pectoris I25.10 Associated angina: without angina Coronary Disease-Associated Artery/Lesion type: [place] artery [place] vs. transplanted heart: [place] heart Pure hypercholesterolemia E78.00 Carotid atherosclerosis, unspecified laterality I65.29 Laterality: unspecified laterality Benign essential hypertension I10 Chronic obstructive pulmonary disease, unspecified COPD type J44.9 COPD type: unspecified COPD Impaired fasting glucose R73.01 GERD without esophagitis K21.9 Zenker's (hypopharyngeal) diverticulum K22.5 Degeneration of intervertebral disc of lumbar region with discogenic back pain M51.360 Disc-related pain type: discogenic back pain only Primary osteoarthritis of right hip M16.11 Osteoarthritis type: primary Vitamin D deficiency E55.9 History of prostate cancer Z85.46 Urinary incontinence, unspecified type R32 Urinary Incontinence type: unspecified incontinence Smoker F17.200 Obesity (BMI 30-39.9) E66.9 Additional Codes PHQ-9 - 59083 - PHQ-9 Billing: Yes ([id number]) Assessment & Plan Assessment & Plan (1) Coronary artery disease: Comment: S/P [place], angioplasty and stent insertion in 1995 Code(s): I25.10 - Atherosclerotic heart disease of [place] coronary artery without angina pectoris Category: Medical Qualifiers: Associated angina: without angina Coronary Disease-Associated Artery/Lesion type: [place] artery [place] vs. transplanted heart: [place] heart Qualified Code(s): I25.10 - Atherosclerotic heart disease of [place] coronary artery without angina pectoris Plan: [place], angioplasty and stent insertion in 1995 - patient currently remains asym ptomatic (has no anginal symptoms) Continue low dose Aspirin 81 mg QD and Metoprolol ER 150 mg QD Follow up with [facility]iology as scheduled States that he had an echocardiogram done at [facility] a few weeks ago - was advised that aside from some calcifications on the aortic valve, his echocardiogram was grossly normal (2) Pure hypercholesterolemia: Code(s): E78.00 - Pure hypercholesterolemia, unspecified Category: Medical Plan: Results of his labs done a couple of days ago reviewed and discussed with patient Reinforced low cholesterol diet Continue Atorvastatin 80 mg QD and Ezetimibe 10 mg QD Will recheck his labs and fasting lipids in 4 months for follow up (3) Carotid atherosclerosis: Code(s): I65.29 - Occlusion and stenosis of unspecified carotid artery Category: Medical Qualifiers: Laterality: unspecified laterality Qualified Code(s): I65.29 - Occlusion and stenosis of unspecified carotid artery Plan: He was sent previously for bilateral carotid US for further evaluation, per patient's request (mostly due to his dentist telling him that there were calcifications seen in his neck on routine dental x-rays) but insurance declined to cover his procedure Patient currently has no symptoms related to carotid stenosis and he has no audible bruits noted on carotid exam (4) Benign essential hypertension: Code(s): I10 - Essential (primary) hypertension Category: Medical Plan: Reinforced low sodium diet - goal is systolic BP of at least 130 to 140 mm due to his cardiac history Continue Benazepril 40 mg QD, Metoprolol ER 150 mg (50 mg x 3 tablets) QD and Amlodipine 2.5 mg QD (5) COPD (chronic obstructive pulmonary disease): Code(s): J44.9 - Chronic obstructive pulmonary disease, unspecified Category: Medical Qualifiers: COPD type: unspecified COPD Qualified Code(s): J44.9 - Chronic obstructive pulmonary disease, unspecified Plan: Stable - reinforced again the importance of smoking cessation, even though patient is now only smoking electronic cigarettes that has reportedly very little nicotine in them (6) Impaired fasting glucose: Code(s): R73.01 - Impaired fasting glucose Category: Medical Plan: His HgbA1c remained unchanged from previous at 5.9% on his labs done a couple of days ago Reinforced low calorie/low carb diet;exercise as tolerated (7) GERD without esophagitis: Code(s): K21.9 - Gastro-esophageal reflux disease without esophagitis Category: Medical Plan: Dietary restrictions reinforced Continue Pantoprazole 40 mg QD (8) Zenker's (hypopharyngeal) diverticulum: Code(s): K22.5 - Diverticulum of esophagus, acquired Category: Medical Plan: His upper GI series done a few months ago revealed (+) mild cricopharyngeal achalasia, tiny Zenker's diverticulum, mildly disorganized esophageal peristalsis and small type I hiatal hernia Reinforced dietary restrictions/modifications to help minimize his symptoms Follow up with GI as scheduled (9) Lumbar degenerative disc disease: Code(s): M51.36 - Other intervertebral disc degeneration, lumbar region Category: Medical Qualifiers: Disc-related pain type: discogenic back pain only Qualified Code(s): M51.360 - Other intervertebral disc degeneration, lumbar region with discogenic back pain only Plan: Reinforced activity and weight-lifting restrictions to minimize aggravating his low back pain (10) Osteoarthritis of right hip: Code(s): M16.11 - Unilateral primary osteoarthritis, right hip Category: Medical Qualifiers: Osteoarthritis type: primary Qualified Code(s): M16.11 - Unilateral primary osteoarthritis, right hip Plan: Takes OTC Tylenol or Naproxen 500 mg BID PRN with adequate relief of his symptoms (11) Vitamin D deficiency: Code(s): E55.9 - Vitamin D deficiency, unspecified Category: Medical Plan: Continue Vitamin D3 1000 units QD (12) History of prostate cancer: Code(s): Z85.46 - Personal history of malignant neoplasm of prostate Category: Medical Plan: S/P prostatectomy in [place] years ago Follow up with urology as scheduled for continuing surveillance He was previously seeing urology in [place] but his doctor there retired recently and he is now seeing Dr. Jurado here locally (13) Urinary incontinence: Code(s): R32 - Unspecified urinary incontinence Category: Medical Qualifiers: Urinary Incontinence type: unspecified incontinence Qualified Code(s): R32 - Unspecified urinary incontinence Plan: Possible overflow incontinence in light of his recent recurrent suprapubic pressure - may be experiencing outlet obstruction although he had a prostatectomy done He was started on a trial of Myrbetriq 25 mg Q HS but patient states that the Rx did not help and he stopped taking it after a while States that the higher dose of 50 mg was helping only slightly better and he also stopped taking it after a while He was started on Gemtesa 75 mg QD by urology but he never took it States that Dr. Jurado is considering doing a cystoscopy and inserting a bladder sling and he was scheduled for a sling procedure a few weeks ago but he ended up canceling the procedure when he contracted COVID and has not been able to reschedule since He is advised to contact urology and get this rescheduled HANNAH Follow up with urology as scheduled (14) Smoker: Code(s): F17.200 - Nicotine dependence, unspecified, uncomplicated Category: Social Hx Plan: Counseled again on smoking cessation - patient is now smoking electronic cigarettes exclusively and states that he is still working on quitting completely (15) Obesity (BMI 30-39.9): Code(s): E66.9 - Obesity, unspecified Category: Medical Plan: Reinforced diet/exercise as tolerated/lose weight Plan As requested, flu vaccine given to patient today Follow up in 4 months Orders: Orders Complete Blood Count Auto Diff 4 Months D64.9 - Anemia, unspecified Comprehensive [place]. Panel Fast 4 Months E78.00 - Pure hypercholesterolemia, unspecified TSH reflex Free T4 4 Months E78.00 - Pure hypercholesterolemia, unspecified Vitamin D 25-OH Total 4 Months E55.9 - Vitamin D deficiency, unspecified Hemoglobin A1c 4 Months R73.01 - Impaired fasting glucose Influenza [id number] Immunization 04/03/24 Z23 - Encounter for immunization Lipid Panel 4 Months E78.00 - Pure hypercholesterolemia, unspecified UA CC w/rflx Micro + Cult 4 Months R30.0 - Dysuria
== END 2024-04-03 09:40 | disposition home or self-care (01) ==
PROVIDERS: PCP Internal Medicine; Visit Provider Internal Medicine
DX: I25.10 Atherosclerotic heart disease of native coronary artery without angina pectoris (principal); E78.00 Pure hypercholesterolemia, unspecified; J44.9 Chronic obstructive pulmonary disease, unspecified; I65.29 Occlusion and stenosis of unspecified carotid artery; I10 Essential (primary) hypertension; R73.01 Impaired fasting glucose; K21.9 Gastro-esophageal reflux disease without esophagitis; K22.5 Diverticulum of esophagus, acquired; M51.360 Other intervertebral disc degeneration, lumbar region with discogenic back pain only; M16.11 Unilateral primary osteoarthritis, right hip; E55.9 Vitamin D deficiency, unspecified; Z85.46 Personal history of malignant neoplasm of prostate

== ENCOUNTER → 2024-04-03 08:48 | Outpatient (BNVA) | payer MEDICARE, OTHER, SELFPAY | PROVIDERS: PCP Internal Medicine; Visit Provider Internal Medicine | DX: Z23 Encounter for immunization (principal); I25.10 Atherosclerotic heart disease of native coronary artery without angina pectoris; E78.00 Pure hypercholesterolemia, unspecified; I65.29 Occlusion and stenosis of unspecified carotid artery; I10 Essential (primary) hypertension; J44.9 Chronic obstructive pulmonary disease, unspecified; R73.01 Impaired fasting glucose; K21.9 Gastro-esophageal reflux disease without esophagitis; K22.5 Diverticulum of esophagus, acquired; M51.360 Other intervertebral disc degeneration, lumbar region with discogenic back pain only; M16.11 Unilateral primary osteoarthritis, right hip; E55.9 Vitamin D deficiency, unspecified; R32 Unspecified urinary incontinence; F17.200 Nicotine dependence, unspecified, uncomplicated; Z71.6 Tobacco abuse counseling | CPT/HCPCS: 90471; 90656; 96127; 99212 ==

== ENCOUNTER 2024-07-28 06:10 | Outpatient (REF) | payer MEDICARE, OTHER, SELFPAY ==
[2024-07-28 06:36] LABS: MANUAL DIFF FLAG NO
[2024-07-28 07:38] LABS: Basophils Percent Auto 0.5 % (0-2); Eosinophils Absolute Auto 0.2 X10*3/uL (0.0-0.4); Hemoglobin 14.6 g/dl (14.0-18.0); Imm Gran Abs Auto 0.03 X10*3/uL (0.00-0.03); Imm Gran Pct Auto 0.4 % (0.0-0.4); Lymphocytes Absolute Auto 1.7 X10*3/uL (1.2-4.9); Lymphocytes Percent Auto 20.2 % (20-40); Mean Corpuscular HGB Conc 31.7 g/dl (31.0-36.0); Mean Corpuscular Hemoglobin 28.7 pg (27.0-33.0); Mean Corpuscular Volume 90.6 fL (80.0-98.0); Mean Platelet Volume 12.9 fL (9.4-12.4); Monocytes Absolute Auto 0.8 X10*3/uL (0.1-1.2); Monocytes Percent Auto 9.9 % (2-11); Neutrophils Absolute Auto 5.6 x10*3/uL (2.0-8.3); Platelet Count 171 X10*3/uL (160-400); Red Blood Count 5.08 X10*6/uL (4.60-5.80); Red Cell Distribution Width 14.6 % (11.0-16.0); White Blood Count 8.4 X10*3/uL (4.8-10.8)
[2024-07-28 07:51] LABS: Estimated Average Glucose 126 mg/dL
[2024-07-28 08:13] LABS: Alanine Aminotransferase 40 U/L (0-40); Albumin Level 3.8 g/dL (3.5-5.0); Alkaline Phosphatase 84 U/L (39-117); Anion Gap 10 (12-20); Aspartate Amino Transferase 33 U/L (5-37); Bilirubin Total 0.4 mg/dL (0.0-1.0); Blood Urea Nitrogen 26 mg/dL (9-16); Carbon Dioxide 25 mmol/L (22-29); Chloride 111 mmol/L (96-108); Cholesterol 123 mg/dL (<200); Estimated Glomerular Filt Rate > 60; Glucose Fasting 98 mg/dL (60-99); HDL Cholesterol 36 mg/dL (>40); LDL Cholesterol Calculated 61 mg/dL (<100); Potassium 4.3 mmol/L (3.3-5.1); Sodium 142 mmol/L (135-145); Triglycerides 134 mg/dL (<150)
[2024-07-28 08:29] LABS: TSH reflex Free T4 1.41 uIU/mL (0.32-4.0); Vitamin D 25-OH Total 41.6 ng/mL (>30)
[2024-07-29 14:14] LABS: Appearance Urine Clear; Color Urine Yellow; Glucose Urine UA Negative (Negative); Leukocyte Esterase Urine Trace (Negative); Nitrite Urine Negative (Negative); PH 6.5 (5.0-9.0); UMIC TRIGGER UACC YES; Urine Blood Negative (Negative); Urine Ketones Negative (Negative); Urine Protein Negative (Neg-Trace)
[2024-07-29 14:19] LABS: Bacteria Urine None Seen (None Seen); Hyaline Casts Urine 0-2 /LPF (0-2); RBC Urine 0-2 /HPF (0-2); Squamous Epithelial Cell Urine 0-2 /HPF (0-2); WBC Urine 0-5 /HPF (0-5)
== END 2024-07-28 06:11 | disposition home or self-care (01) ==
LOC: HO.LAB 06:10
PROVIDERS: PCP Internal Medicine; Visit Provider Internal Medicine
DX: E78.00 Pure hypercholesterolemia, unspecified (principal); R73.01 Impaired fasting glucose; E55.9 Vitamin D deficiency, unspecified; D64.9 Anemia, unspecified
CPT/HCPCS: 36415; 80053; 80061; 81001; 82306; 83036; 84443; 85025

== ENCOUNTER 2024-08-01 09:18 | Outpatient (AMB) | payer MEDICARE, OTHER, SELFPAY ==
[2024-08-01 09:21] VITALS: BP 144/78; PULSE 80; RESP 18; TEMP 37.2; O2SAT 97; BMI 37.8
--- NOTE | 2024-08-01 09:21 | A.OFFPC_ITS ---
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 Accompanied by: Self / Same As Patient Allergies ciprofloxacin [From CIPRO] Allergy (Severe, Verified 08/01/24 09:35) ERYTHEMA MULTIFORMA Sulfa (Sulfonamide Antibiotics) [SULFA (SULFONAMIDE ANTIBIOTICS)] Allergy (Intermediate, Verified 08/01/24 09:35) RASH amoxicillin Adverse Reaction (Severe, Verified 08/01/24 09:35) Swelling Medication List - Last Reconciled 08/01/24 by SAE Blanton amlodipine 2.5 mg PO DAILY aspirin 81 mg PO DAILY atorvastatin mg PO DAILY benazepril 40 mg PO DAILY 90 days cholecalciferol (vitamin D3) 50 mcg PO DAILY diphenhydramine HCl (Benadryl) 50 mg PO BEDTIME PRN ezetimibe 10 mg PO DAILY fluticasone propionate 50 mcg/actuation 1 spray intranasal DAILY PRN metoprolol succinate ER 150 mg (3 x 50 mg) PO DAILY 90 days multivitamin 1 tab PO DAILY naproxen 500 mg PO BID PRN 90 days pantoprazole (Protonix) 40 mg PO DAILY 90 days pyridoxine (vitamin B6) 50 mg PO DAILY 90 days Tobacco use date assessed: 08/01/24 Fall risk assessment: 1 Fall in past year Last assessed Fall Risk: 08/01/24 Dental Screening Dental Screen Date: 08/01/24 Did you have a dental visit in the last 12 months?: Yes Did you have a dental problem in the last 6 months where you did not have access to dental care?: No Was dental information given to patient?: Patient has dentist HPI hyperlipidemia, HTN, IFG, CAD HPI Details The patient is 73 y/o male presenting for a follow up of chronic co nditions Recent labs reviewed with patient The patient's overall he feels okay reports that he is gaining weight and he decides to gulf it off, reports that he has become sedentary He reports that the was taking Benadryl for sleep but read somewhere that this could mess with his memory long-term so he stopped Patient reports that Dr. Adams prescribed him naproxen 500 mg b.i.d. Reports that he only has been taking this medication at nighttime because he found that it helps him to sleep Denies sob, chest pain, dizziness, heart palpitation or lightheadedness denies changes in bowel habits or any urinary symptoms PFSH Medical History Obesity (BMI 30-39.9) Vaccine counseling Epidermoid cyst Smoker History of prostate cancer Vitamin D deficiency Osteoarthritis of right hip Lumbar degenerative disc disease GERD without esophagitis Impaired fasting glucose COPD (chronic obstructive pulmonary disease) Pure hypercholesterolemia Benign essential hypertension Coronary artery disease Surgical History History of bilateral cataract extraction History of lithotripsy History of angioplasty (~1995) History of prostatectomy Family History Father Lung cancer Mother Myocardial infarction CVD (cardiovascular disease) Social History Housing: House Alcohol intake: current Alcohol intake frequency: a few times a week Patient Tobacco Use Status: Former Tobacco user Tobacco use type: Cigarette e-Cigarette/Vaping Use: Currently Using Second Hand Smoke Exposure: Yes service: No Current occupational status: retired Cognitive needs: No Hearing needs: No Vision needs: Yes Questionnaire PHQ-9 Over the last 2 weeks, how often have you been bothered by any of the following problems? 1. Little interest or pleasure in doing things: not at all 2. Feeling down, depressed, or hopeless: not at all 3. Trouble falling or staying asleep, or sleeping too much: not at all 4. Feeling tired or having little energy: not at all 5. Poor appetite or overeating: not at all 6. Feeling bad about yourself - or that you are a failure or have let yourself or your family down: not at all 7. Trouble concentrating on things, such as reading the newspaper or watching television: not at all 8. Moving or speaking so slowly that other people could have noticed. Or the opposite - being so fidgety or restless that you have been moving around a lot more than usual: not at all 9. Thoughts that you would be better off or of hurting yourself in some way: not at all Total score: 0 Depression Screening Interpretation: Negative Depression Screening Done: Yes 63619 - PHQ-9 Billing: Yes Source: Developed by Drs. Venkata Hanson, Shala Burdick, Bladimir Mora and colleagues, with an educational iliana from [employer]. Thrive Questionnaire Date Thrive assessed: 08/01/24 I am a: Patient What is your living situation today?: I have a steady place to live Within the past 12 months, did the food you bought not last and you didn't have the money to get more?: Never true Within the past 12 months, did you worry whether your food would run out before you got money to buy more?: Never true Do you have trouble paying for medicines?: No Do you have trouble getting transportation to medical appointments?: No Do you have trouble paying your heating and electricity bill?: No Do you have trouble taking care of your child, family member or friend?: No Do you have trouble with day-to-day activities such as bathing, preparing meals, shopping, managing finances, etc.?: No Are you currently unemployed and looking for a job?: No Are you interested in more education?: No Please select the resources that you would like help with: None Currently or been in a relationship where the following occur: No concerns reported THRIVE Score: 0 AUDIT C Alcohol Use Questionnaire (AUDIT-C) 1. How often do you have a drink containing alcohol?: Monthly or less (Rarely) 2. How many drinks containing alcohol do you have on a typical day when you are drinking?: 1 or 2 3. How often do you have six or more drinks on one occasion?: Never Total Score: 1 CHRISTINA-7 AMB Questionnaire CHRISTINA-7 Date CHRISITNA - 7 assessed: 08/01/24 Feeling nervous, anxious, or on edge: 0 = Not at all Not being able to stop or control worryin = Not at all Worrying too much about different things: 0 = Not at all Trouble relaxin = Not at all Being so restless that it is hard to sit still: 0 = Not at all Becoming easily annoyed or irritable: 0 = Not at all Feeling afraid as if something awful might happen: 0 = Not at all Total CHRISTINA-7 score (0-4 normal; 5-9 mild; 10-14 moderate; 15-21 severe): 0 Source: Developed by Drs. Venkata Hanson, Shala Burdick, Bladimir Mora and colleagues, with an educational iliana from [employer]. CHRISTINA-7 Assessment Billing CHRISTINA-7 Assessment Tool: CHRISTINA-7 Assessment 28792 Review of Systems Const Denies headache(s) Eyes Denies loss of vision ENT Denies vertigo, Denies dizziness, Denies headache(s) and Denies sore throat Card Denies chest pain, Denies leg edema and Denies lightheadedness Resp Denies cough, Denies hemoptysis and Denies wheezing GI Denies abdominal pain, Denies melena, Denies constipation, Denies diarrhea and Denies vomiting Denies dysuria, Denies urinary frequency and Denies urinary urgency Musc Denies arthralgias, Denies joint swelling, Denies numbness and Denies tingling Neuro Denies Abnormal speech present, Denies behavioral changes, Denies vertigo, Denies dizziness, Denies headache(s), Denies loss of vision, Denies memory loss, Denies numbness and Denies tingling Psych Denies anxiety, Denies behavioral changes, Denies depression, Denies memory loss and Denies panic attacks Mehul/Lymph Denies easy bleeding and Denies easy bruising Aller/Immun Denies wheezing Physical exam (Primary Care) Vital Signs: Last Vital Signs Temp 98.9 F 08/01/24 09:21 Pulse 80 08/01/24 09:21 Resp 18 08/01/24 09:21 BP 144/78 H 08/01/24 09:21 Pulse Ox 97 08/01/24 09:21 Oxygen Delivery Method Room Air 08/01/24 09:21 BMI result Body Mass Index 37.8 Tobacco/Smoking Status: Tobacco use Status Tobacco use date assessed 08/01/24 08/01/24 09:30 Patient Tobacco Use Status Former Tobacco user 08/01/24 09:30 Tobacco use type Cigarette 08/01/24 09:30 e-Cigarette/Vaping Use Currently Using 08/01/24 09:30 PHQ-9: PHQ-9 Score PHQ-9: Total score 0 08/13/24 20:54 Depression Screening Interpretation: Negative Thrive Assessment: Date of Thrive Assessment Date Thrive assessed 08/01/24 08/01/24 09:30 Currently or been in a relationship where the following occur: No concerns reported Const General: healthy appearing, no acute distress, alert and awake Nutritional Appearance: well nourished Orientation/consciousness: oriented to person, oriented to place and oriented to time HENMT Ears: TM's normal bilaterally General nose exam: Normal nasal mucous membranes and turbinates present Eyes Conjunctivae: conjunctivae normal Sclerae: sclerae normal Pupils: Equal, round and reactive pupils present Neck Neck: Yes no lymphadenopathy and Yes no JVD Thyroid: Thyroid normal Carotids: no bruits Resp Effort & Inspection: normal respiratory effort and not tachypneic Auscultation: no crackles, no rales, no rhonchi and no wheezes Cardio Rate: regular rate Rhythm: regular rhythm Heart sounds: no murmurs and normal S1 and S2 GI Palpation (GI): Soft to palpation, nontender, no hepatomegaly and no splenomegaly Auscultation: normal bowel sounds Skin General skin exam: no rashes or lesions noted and dry skin Neuro General: oriented to person, oriented to place and oriented to time Cranial nerves: Yes Equal, round and reactive pupils present Speech: No Abnormal speech present Gait exam (Neuro): Normal gait present Motor exam (neuro): no tremor noted Extrem Right upper extremity: full ROM Left upper extremity: full ROM Right lower extremity: full ROM; no edema Left lower extremity: full ROM; no edema Psych Mental Status: mental status grossly normal Speech and movement: Normal speech and movement present Affect: normal affect Attitude: cooperative Thought process: Normal thought process present Results Reviewed Results Reviewed: Laboratory Tests 07/28/24 07/28/24 06:32 19:30 WBC 8.4 RBC 5.08 Hgb 14.6 Hct 46.0 MCV 90.6 Plt Count 171 Sodium 142 Potassium 4.3 Chloride 111 H BUN 26 H Creatinine 0.80 Estimated GFR > 60 Fasting Glucose 98 Estimat Average Glucose 126 Hemoglobin A1c % 6.0 AST 33 ALT 40 Alkaline Phosphatase 84 Triglycerides 134 Cholesterol 123 LDL Cholesterol, Calc 61 25-OH Vitamin D Total 41.6 TSH 1.41 Urine Color Yellow Urine Appearance Clear Urine pH 6.5 Ur Specific [place]rill 1.020 Urine Protein Negative Urine Glucose (UA) Negative Urine Ketones Negative Urine Blood Negative Urine Nitrite Negative Ur Leukocyte Esterase Trace H Urine RBC 0-2 Urine WBC 0-5 Ur Squamous Epith Cells 0-2 Urine Bacteria None Seen Hyaline Casts 0-2 Coding Level of Care Code Est Pt Level 4 (83679) Diagnoses Benign essential hypertension I10 Coronary artery disease involving [place] coronary artery of [place] heart without angina pectoris I25.10 Associated angina: without angina Coronary Disease-Associated Artery/Lesion type: [place] artery [place] vs. transplanted heart: [place] heart Pure hypercholesterolemia E78.00 Chronic obstructive pulmonary disease, unspecified COPD type J44.9 COPD type: unspecified COPD Impaired fasting glucose R73.01 GERD without esophagitis K21.9 Vitamin D deficiency E55.9 Zenker's (hypopharyngeal) diverticulum K22.5 Degeneration of intervertebral disc of lumbar region with discogenic back pain M51.360 Disc-related pain type: discogenic back pain only Primary osteoarthritis of right hip M16.11 Osteoarthritis type: primary History of prostate cancer Z85.46 Obesity (BMI 30-39.9) E66.9 Additional Codes CHRISTINA-7 Assessment Billing - CHRISTINA-7 Assessment Tool: CHRISTINA-7 Assessment 58519 ([id number]) PHQ-9 - 42559 - PHQ-9 Billing: Yes ([id number]) Time Spent (min) 39 Assessment & Plan Assessment & Plan (1) Benign essential hypertension: Code(s): I10 - Essential (primary) hypertension Category: Medical Plan: BP 144/78 Reinforced sodium diet Continue benazepril 40 mg daily, amlodipine 2.5 mg daily, metoprolol succinate ER 150 mg daily (2) Coronary artery disease: Comment: S/P [place], angioplasty and stent insertion in 1995 Code(s): I25.10 - Atherosclerotic heart disease of [place] coronary artery without angina pectoris Category: Medical Qualifiers: Associated angina: without angina Coronary Disease-Associated Artery/Lesion type: [place] artery [place] vs. transplanted heart: [place] heart Qualified Code(s): I25.10 - Atherosclerotic heart disease of [place] coronary artery without angina pectoris Plan: S/P [place], angioplasty and stent insertion in 1995 - patient currently remains asymptomatic (has no anginal symptoms) Continue low dose Aspirin 81 mg QD and Metoprolol ER 150 mg QD Follow up with [facility] as scheduled States that he had an echocardiogram done at [facility] a few weeks ago - was advised that aside from some calcifications on the aortic valve, his echocar diogram was grossly normal (3) Pure hypercholesterolemia: Code(s): E78.00 - Pure hypercholesterolemia, unspecified Category: Medical Plan: Cholesterol levels are within goal Reinforced low cholesterol diet Continue Atorvastatin 80 mg QD and Ezetimibe 10 mg QD Will recheck his labs and fasting lipids in 4 months for follow up (4) COPD (chronic obstructive pulmonary disease): Code(s): J44.9 - Chronic obstructive pulmonary disease, unspecified Category: Medical Qualifiers: COPD type: unspecified COPD Qualified Code(s): J44.9 - Chronic obstructive pulmonary disease, unspecified Plan: Stable - reinforced again the importance of smoking cessation, even though patient is now only smoking electronic cigarettes that has reportedly very little nicotine in them (5) Impaired fasting glucose: Code(s): R73.01 - Impaired fasting glucose Category: Medical Plan: His HgbA1c 6%, previous was 5.9% Reinforced low calorie/low carb diet;exercise as tolerated (6) GERD without esophagitis: Code(s): K21.9 - Gastro-esophageal reflux disease without esophagitis Category: Medical Plan: Dietary restrictions reinforced Continue Pantoprazole 40 mg QD (7) Vitamin D deficiency: Code(s): E55.9 - Vitamin D deficiency, unspecified Category: Medical Plan: Continue Vitamin D3 2000 units QD (8) Zenker's (hypopharyngeal) diverticulum: Code(s): K22.5 - Diverticulum of esophagus, acquired Category: Medical Plan: His upper GI series done a few months ago revealed (+) mild cricopharyngeal achalasia, tiny Zenker's diverticulum, mildly disorganized esophageal peristalsis and small type I hiatal hernia Reinforced dietary restrictions/modifications to help minimize his symptoms Follow up with GI as scheduled (9) Lumbar degenerative disc disease: Code(s): M51.36 - Other intervertebral disc degeneration, lumbar region Category: Medical Qualifiers: Disc-related pain type: discogenic back pain only Qualified Code(s): M51.360 - Other intervertebral disc degeneration, lumbar region with discogenic back pain only Plan: Reinforced activity and weight-lifting restrictions to minimize aggravating his low back pain (10) Osteoarthritis of right hip: Code(s): M16.11 - Unilateral primary osteoarthritis, right hip Category: Medical Qualifiers: Osteoarthritis type: primary Qualified Code(s): M16.11 - Unilateral primary osteoarthritis, right hip Plan: Takes OTC Tylenol or Naproxen 500 mg BID PRN with adequate relief of his symptoms (11) History of prostate cancer: Code(s): Z85.46 - Personal history of malignant neoplasm of prostate Category: Medical Plan: S/P prostatectomy in [place] years ago Follow up with urology as scheduled for continuing surveillance He was previously seeing urology in [place] but his doctor there retired recently and he is now seeing Dr. Jurado here locally (12) Obesity (BMI 30-39.9): Code(s): E66.9 - Obesity, unspecified Category: Medical Plan: Reinforced diet/exercise as tolerated/lose weight Plan Follow up in 4 months Orders: Orders Complete Blood Count Auto Diff 4 Months K21.9 - Gastro-esophageal reflux disease without esophagitis, E66.9 - Obesity, unspecified, E66.3 - Overweight, E55.9 - Vitamin D deficiency, unspecified, R73.01 - Impaired fasting glucose, J44.9 - Chronic obstructive pulmonary disease, unspecified, E78.00 - Pure hypercholesterolemia, unspecified, I10 - Essential (primary) hypertension, I25.10 - Atherosclerotic heart disease of [place] coronary artery without angina pectoris Comprehensive [place]. Panel Fast 4 Months K21.9 - Gastro-esophageal reflux disease without esophagitis, E66.9 - Obesity, unspecified, E66.3 - Overweight, E55.9 - Vitamin D deficiency, unspecified, R73.01 - Impaired fasting glucose, J44.9 - Chronic obstructive pulmonary disease, unspecified, E78.00 - Pure hypercholesterolemia, unspecified, I10 - Essential (primary) hypertension, I25.10 - Atherosclerotic heart disease of [place] coronary artery without angina pectoris Vitamin D 25-OH Total 4 Months K21.9 - Gastro-esophageal reflux disease without esophagitis, E66.9 - Obesity, unspecified, E66.3 - Overweight, E55.9 - Vitamin D deficiency, unspecified, R73.01 - Impaired fasting glucose, J44.9 - Chronic obstructive pulmonary disease, unspecified, E78.00 - Pure hypercholesterolemia, unspecified, I10 - Essential (primary) hypertension, I25.10 - Atherosclerotic he art disease of [place] coronary artery without angina pectoris UA CC w/rflx Micro + Cult 4 Months K21.9 - Gastro-esophageal reflux disease without esophagitis, E66.9 - Obesity, unspecified, E66.3 - Overweight, E55.9 - Vitamin D deficiency, unspecified, R73.01 - Impaired fasting glucose, J44.9 - Chronic obstructive pulmonary disease, unspecified, E78.00 - Pure hypercholest erolemia, unspecified, I10 - Essential (primary) hypertension, I25.10 - Atherosclerotic heart disease of [place] coronary artery without angina pectoris TSH reflex Free T4 4 Months K21.9 - Gastro-esophageal reflux disease without esophagitis, E66.9 - Obesity, unspecified, E66.3 - Overweight, E55.9 - Vitamin D deficiency, unspecified, R73.01 - Impaired fasting glucose, J44.9 - Chronic obstructive pulmonary disease, unspecified, E78.00 - Pure hypercholesterolemia, unspecified, I10 - Essential (primary) hypertension, I25.10 - Atherosclerotic heart disease of [place] coronary artery without angina pectoris Hemoglobin A1c 4 Months K21.9 - Gastro-esophageal reflux disease without esophagitis, E66.9 - Obesity, unspecified, E66.3 - Overweight, E55.9 - Vitamin D deficiency, unspecified, R73.01 - Impaired fasting glucose, J44.9 - Chronic obstructive pulmonary disease, unspecified, E78.00 - Pure hypercholesterolemia, unspecified, I10 - Essential (primary) hypertension, I25.10 - Atherosclerotic heart disease of [place] coronary artery without angina pectoris Lipid Panel 4 Months K21.9 - Gastro-esophageal reflux disease without esophagitis, E66.9 - Obesity, unspecified, E66.3 - Overweight, E55.9 - Vitamin D deficiency, unspecified, R73.01 - Impaired fasting glucose, J44.9 - Chronic obstructive pulmonary disease, unspecified, E78.00 - Pure hypercholesterolemia, unspecified, I10 - Essential (primary) hypertension, I25.10 - Atherosclerotic heart disease of [place] coronary artery without angina pectoris Glucose Fasting 4 Months K21.9 - Gastro-esophageal reflux disease without esophagitis, E66.9 - Obesity, unspecified, E66.3 - Overweight, E55.9 - Vitamin D deficiency, unspecified, R73.01 - Impaired fasting glucose, J44.9 - Chronic obstructive pulmonary disease, unspecified, E78.00 - Pure hypercholesterolemia, unspecified, I10 - Essential (primary) hypertension, I25.10 - Atherosclerotic heart disease of [place] coronary artery without angina pectoris
== END 2024-08-01 10:00 | disposition home or self-care (01) ==
LOC: HO.HMCH 09:18
PROVIDERS: PCP Internal Medicine
DX: I10 Essential (primary) hypertension (principal); I25.10 Atherosclerotic heart disease of native coronary artery without angina pectoris; J44.9 Chronic obstructive pulmonary disease, unspecified; E78.00 Pure hypercholesterolemia, unspecified; R73.01 Impaired fasting glucose; K21.9 Gastro-esophageal reflux disease without esophagitis; E55.9 Vitamin D deficiency, unspecified; E66.9 Obesity, unspecified; Z68.37 Body mass index [BMI] 37.0-37.9, adult; K22.5 Diverticulum of esophagus, acquired; M51.360 Other intervertebral disc degeneration, lumbar region with discogenic back pain only; M16.11 Unilateral primary osteoarthritis, right hip

== ENCOUNTER → 2024-08-01 09:18 | Outpatient (BNVA) | payer MEDICARE, OTHER, SELFPAY | PROVIDERS: PCP Internal Medicine | DX: I10 Essential (primary) hypertension (principal); I25.10 Atherosclerotic heart disease of native coronary artery without angina pectoris; E78.00 Pure hypercholesterolemia, unspecified; J44.9 Chronic obstructive pulmonary disease, unspecified; R73.01 Impaired fasting glucose; K21.9 Gastro-esophageal reflux disease without esophagitis; E55.9 Vitamin D deficiency, unspecified; K22.5 Diverticulum of esophagus, acquired; M51.360 Other intervertebral disc degeneration, lumbar region with discogenic back pain only; M16.11 Unilateral primary osteoarthritis, right hip; E66.9 Obesity, unspecified; Z85.46 Personal history of malignant neoplasm of prostate; Z68.37 Body mass index [BMI] 37.0-37.9, adult; Z71.3 Dietary counseling and surveillance | CPT/HCPCS: 96127; 99212 ==

== ENCOUNTER 2024-09-29 10:00 | Emergency (ER) | payer MEDICARE, OTHER, SELFPAY ==
[2024-09-29 10:38] VITALS: BP 174/79; PULSE 78; RESP 18; TEMP 36.6; O2SAT 97; BMI 35.1
[2024-09-29 11:49] VITALS: BP 174/80; PULSE 80; RESP 18; TEMP 36.8; O2SAT 97
--- NOTE | 2024-09-29 11:55 | ED_ITS ---
HPI - Extremity Problem General Chief complaint: Extremity Injury, Upper Stated complaint: Back Injury 3-4 Days Ago Time Seen by Provider: 09/29/24 11:38 Source: patient Mode of arrival: ambulatory Limitations: no limitations History of Present Illness ED Provider: Dr. Walter HPI Narrative: 74-year-old male presents emergency department 5-6 days after hurting his back. States it is his left upper back along his shoulder blade. He denies any falls or injuries he does not recall injuring it per se but ever since coughing the pain has persisted he has tried naproxen without complete relief he denies chest pain cough nausea vomiting or diarrhea states had this problem in the past. Related Data Home Medications ?Medication ?Instructions ?Recorded ?Confirmed aspirin 81 mg tablet,delayed 81 mg PO DAILY 04/28/20 08/01/24 release cholecalciferol (vitamin D3) 50 50 mcg PO DAILY 12/08/20 08/01/24 mcg (2,000 unit) tablet multivitamin 1 tab PO DAILY 12/08/20 08/01/24 diphenhydramine HCl 25 mg capsule 50 mg PO BEDTIME PRN 08/16/23 08/01/24 (Benadryl) ezetimibe 10 mg tablet 10 mg PO DAILY 01/04/24 08/01/24 atorvastatin 80 mg tablet mg PO DAILY 08/01/24 08/01/24 Previous Rx's ?Medication ?Instructions ?Recorded fluticasone propionate 50 1 spray intranasal DAILY PRN nasal 04/24/22 mcg/actuation nasal congestion #16 grams spray,suspension pyridoxine (vitamin B6) 50 mg 50 mg PO DAILY 90 days #90 tabs 11/16/23 tablet naproxen 500 mg tablet 500 mg PO BID PRN pain 90 days 11/20/23 #180 tabs amlodipine 2.5 mg tablet 2.5 mg PO DAILY #30 tabs 08/02/24 benazepril 40 mg tablet 40 mg PO DAILY 90 days #90 tabs 08/12/24 metoprolol succinate 50 mg 150 mg (3 x 50 mg) PO DAILY 90 08/12/24 tablet,extended release 24 hr days #270 tabs pantoprazole 40 mg tablet,delayed 40 mg PO DAILY 90 days #90 tabs 08/12/24 release (Protonix) Allergies Allergy/AdvReac Type Severity Reaction Status Date / Time ciprofloxacin [From CIPRO] Allergy Severe ERYTHEMA Verified 09/29/24 10:39 MULTIFORMA Sulfa (Sulfonamide Allergy Intermediate RASH Verified 09/29/24 10:39 Antibiotics) [SULFA (SULFONAMIDE ANTIBIOTICS)] amoxicillin AdvReac Severe Swelling Verified 09/29/24 10:39 Review of Systems Review of Systems: Review of systems: General: Patient denies any fever chills recent illness or falls Musculoskeletal: Left upper back pain no body aches or other injuries HEENT: denies headache, runny nose, ear pain Respiratory: denies shortness of breath, cough Cardiovascular: no chest pain or palpitations : denies dysuria, frequency Abdomen: no nausea vomiting denies abdominal pain Extremities: no swelling, no pain Skin: no diaphoresis Yes all other systems are reviewed and are negative [facility] Past Medical History Medical History Obesity (BMI 30-39.9) Vaccine counseling Epidermoid cyst Smoker History of prostate cancer Vitamin D deficiency Osteoarthritis of right hip Lumbar degenerative disc disease GERD without esophagitis Impaired fasting glucose COPD (chronic obstructive pulmonary disease) Pure hypercholesterolemia Benign essential hypertension Coronary artery disease Surgical History History of bilateral cataract extraction History of lithotripsy History of angioplasty (~1995) History of prostatectomy Family History Family History Father Lung cancer Mother Myocardial infarction CVD (cardiovascular disease) Social History Social History Housing: House Alcohol intake: current Alcohol intake frequency: 0-2 drinks per day Patient Tobacco Use Status: Former Tobacco user Tobacco use type: Cigarette Smoked in Last 30 Days: No e-Cigarette/Vaping Use: Currently Using Second Hand Smoke Exposure: Yes Use of substances other than those prescribed or required for medical reasons: No Advance Directives: No Advance Directives Information Provided: Yes Do you have a plan to hurt others: No Plan service: No Current occupational status: retired Cognitive needs: No Hearing needs: No Vision needs: Yes Physical Exam Vital Signs: Vital Signs: Last Vital Signs Temp 98.2 F 09/29/24 11:49 Pulse 80 09/29/24 11:49 Resp 18 09/29/24 11:49 BP 174/80 H 09/29/24 11:49 Pulse Ox 97 09/29/24 11:49 O2 Del Method Room Air 09/29/24 11:49 BMI result Body Mass Index 35.1 General: Well-appearing well-nourished in no signs of distress HEENT: Normocephalic atraumatic Neck: No signs of JVD, no masses no tenderness or lymphadenopathy Cardiovascular: Regular rate and rhythm Respiratory: Clear to auscultation bilaterally Abdomen: Soft nontender no masses Extremities: Normal pedal pulses no signs of edema Skin: Dry warm no rashes Back: No tenderness full ROM Medical Decision Making Medical Decision Making [facility] Narrative: back pain versus strain versus radiculopathy I did treat the patient on them patient did get some relief but states the pain that is still slightly there patient will be sent home on prednisone and Flexeril patient also will use icy hot naproxen patient denies any fevers chills cough shortness breath Differential Diagnosis Differential Diagnoses: The differential diagnosis associated with the presentation includes Lab Data [facility] Lab Attestation statement: I reviewed the patient's lab results. Discharge Plan Discharge Clinical Impression: Back pain Patient Disposition: Home, Self-Care Instructions: Back Pain (ED) Additional Instructions: You were seen today for back pain. By Dr. Harry Walter We are going to send you home with flexeril and prednisone. You should only take the flexeril at night to help you sleep do not mix with alcohol or drink or drive while on the flexeril If you have any other concerns please return to the ER. Prescriptions: No Action amlodipine 2.5 mg tablet 2.5 mg PO DAILY Qty: 30 2RF metoprolol succinate 50 mg tablet extended release 24 hr 150 mg PO DAILY 90 Days Qty: 270 3RF benazepril 40 mg tablet 40 mg PO DAILY 90 Days Qty: 90 1RF pantoprazole [Protonix] 40 mg tablet,delayed release (DR/EC) 40 mg PO DAILY 90 Days Qty: 90 3RF aspirin 81 mg tablet,delayed release (DR/EC) 81 mg PO DAILY multivitamin Tablet 1 tab PO DAILY cholecalciferol (vitamin D3) 50 mcg (2,000 unit) tablet 50 mcg PO DAILY fluticasone propionate 50 mcg/actuation spray,suspension 1 spray intranasal DAILY PRN (Reason: nasal congestion) Qty: 16 5RF Rx Instructions: administer into each nostril diphenhydramine HCl [Benadryl] 25 mg capsule 50 mg PO BEDTIME PRN ezetimibe 10 mg tablet 10 mg PO DAILY naproxen 500 mg tablet 500 mg PO BID PRN (Reason: pain) 90 Days Qty: 180 1RF Rx Instructions: Take with food as needed for pain pyridoxine (vitamin B6) 50 mg tablet 50 mg PO DAILY 90 Days Qty: 90 3RF atorvastatin 80 mg tablet PO DAILY Print Language: Mexican
[2024-09-29 12:14] VITALS: BP 174/80; PULSE 80; RESP 18; TEMP 36.8; O2SAT 97
== END 2024-09-29 12:14 | disposition home or self-care (01) ==
PROVIDERS: Emergency Provider Student in an Organized Health Care Education/Training Program; PCP Internal Medicine
DX: M54.6 Pain in thoracic spine (principal)
CPT/HCPCS: 99284

== ENCOUNTER 2024-12-12 06:01 | Outpatient (REF) | payer MEDICARE, OTHER, SELFPAY ==
--- OUTSIDE RECORDS SUMMARY | 2024-12-12 06:05 | XMS_ITS | Clinical Summary ---
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
[2024-12-12 06:20] LABS: MANUAL DIFF FLAG NO
[2024-12-12 07:08] LABS: Hematocrit 44.4 % (42.0-52.0); Hemoglobin 14.4 g/dl (14.0-18.0); Imm Gran Abs Auto 0.02 X10*3/uL (0.00-0.03); Imm Gran Pct Auto 0.3 % (0.0-0.4); Lymphocytes Absolute Auto 1.6 X10*3/uL (1.2-4.9); Mean Corpuscular HGB Conc 32.4 g/dl (31.0-36.0); Mean Corpuscular Hemoglobin 29.1 pg (27.0-33.0); Mean Corpuscular Volume 89.9 fL (80.0-98.0); NRBC Abs Auto 0.000 X10*3/uL (0.0-0.012); NRBC Pct Auto 0.0 /100WBC (0.0-0.2); Platelet Count 212 X10*3/uL (160-400); Red Blood Count 4.94 X10*6/uL (4.60-5.80); White Blood Count 7.3 X10*3/uL (4.8-10.8)
[2024-12-12 07:16] LABS: Hemoglobin A1C 159.6344 umol/L; Total Hemoglobin (HGBA1C) 3769.6450 umol/L
[2024-12-12 07:33] LABS: Appearance Urine Clear; Glucose Urine UA Negative (Negative); PH 6.0 (5.0-9.0); Specific Gravity - Urine 1.020 (1.005-1.025); UMIC TRIGGER UACC YES
[2024-12-12 07:39] LABS: Alanine Aminotransferase 46 U/L (0-40); Albumin Level 4.3 g/dL (3.5-5.0); Alkaline Phosphatase 91 U/L (39-117); Anion Gap 14 (12-20); Aspartate Amino Transferase 32 U/L (5-37); Blood Urea Nitrogen 18 mg/dL (9-16); Calcium 8.8 mg/dL (8.4-10.2); Carbon Dioxide 27 mmol/L (22-29); Chloride 105 mmol/L (96-108); Cholesterol 129 mg/dL (<200); Estimated Glomerular Filt Rate > 60; HDL Cholesterol 37 mg/dL (>40); Potassium 4.2 mmol/L (3.3-5.1); Sodium 142 mmol/L (135-145); Total Protein 6.9 g/dL (6.5-8.0); Triglycerides 140 mg/dL (<150)
== END 2024-12-12 06:02 | disposition home or self-care (01) ==
LOC: HO.LAB 06:01
PROVIDERS: PCP Internal Medicine
DX: K21.9 Gastro-esophageal reflux disease without esophagitis (principal); I25.10 Atherosclerotic heart disease of native coronary artery without angina pectoris; I10 Essential (primary) hypertension; R73.01 Impaired fasting glucose; J44.9 Chronic obstructive pulmonary disease, unspecified; E78.00 Pure hypercholesterolemia, unspecified; E66.9 Obesity, unspecified; E55.9 Vitamin D deficiency, unspecified
CPT/HCPCS: 36415; 80053; 80061; 81001; 82306; 83036; 84443; 85025

== ENCOUNTER 2024-12-15 09:03 | Outpatient (AMB) | payer MEDICARE, OTHER, SELFPAY ==
--- NOTE | 2024-12-15 09:15 | A.OFFPC_ITS ---
Vital Signs 12/15/24 09:16 Height 5 ft 10 in Weight 243 lb BMI 34.9 BP 132/80 Blood Pressure Location Lt brachial Position Sitting Pulse 84 Pulse Source Pulse Oximeter Pulse Oximetry (%) 96 Oxygen Delivery Method Room Air Intake Visit Reasons: htn/ifg/copd Dry Kiln Loader Required: No Accompanied by: Self / Same As Patient Allergies ciprofloxacin (From CIPRO) Allergy (Severe, Verified 12/15/24 10:08) ERYTHEMA MULTIFORMA Sulfa (Sulfonamide Antibiotics) (SULFA (SULFONAMIDE ANTIBIOTICS)) Allergy (Intermediate, Verified 12/15/24 10:08) RASH amoxicillin Adverse Reaction (Severe, Verified 12/15/24 10:08) Swelling Medication List - Last Reconciled 12/15/24 by Tha Adams MD amlodipine 2.5 mg PO DAILY aspirin 81 mg PO DAILY atorvastatin mg PO DAILY benazepril 40 mg PO DAILY 90 days cholecalciferol (vitamin D3) 50 mcg PO DAILY diphenhydramine HCl (Benadryl) 50 mg PO BEDTIME PRN ezetimibe 10 mg PO DAILY fluticasone propionate 50 mcg/actuation 1 spray intranasal DAILY PRN metoprolol succinate ER 150 mg (3 x 50 mg) PO DAILY 90 days multivitamin 1 tab PO DAILY pantoprazole (Protonix) 40 mg PO DAILY 90 days pyridoxine (vitamin B6) 50 mg PO DAILY 90 days Tobacco use date assessed: 12/15/24 Fall risk assessment: No Falls in past year Last assessed Fall Risk: 12/15/24 Dental Screening Dental Screen Date: 12/15/24 Did you have a dental visit in the last 12 months?: Yes Did you have a dental problem in the last 6 months where you did not have access to dental care?: No Was dental information given to patient?: Patient has dentist HPI htn/ifg/copd HPI Details Patient comes in today for his follow up visit Reports that he apparently hurt his neck while he was playing golf sometime in mid-September (2024) He went to the ER for further evaluation a few days later as his neck pain persisted and he has been experiencing numbness / tingling in his left arm and hand that is now occurring on a daily basis He was prescribed oral prednisone and a muscle relaxant but states that he cannot take prednisone due to Hx of retinal tear and repair so he did not take the medications prescribed He eventually called up the office for an order for physical therapy and states that he has gone to 6 sessions of PT so far with some improvement of his symptoms He then tried going back to playing golf again and states that his symptoms recurred and got worse as a result He was then referred by his chiropractor, who he was also seeing while he was going to physical therapy, to [facility] for further evaluation States that he was seen by Dr. Wenceslao Miguel and was sent for MRI and EMG for further evaluation He is now scheduled for the MRI later this week on 12/19/24 and is scheduled for EMG next week He denies any headaches or dizziness Denies any chest pains, no shortness of breath No nausea/vomiting, no abdominal pain No change in bowel habits noted Needs his Vitamin B6 Rx refilled Adds that he is currently still struggling with sleeping at night and would like to have something to take that will not interact with any of his other current meds He had his follow-up labs done a few days ago - to discuss his results [facility] Medical History (Updated 12/16/24 @ 05:32 by Tha Adams MD) Insomnia Obesity (BMI 30-39.9) Vaccine counseling Epidermoid cyst Smoker History of prostate cancer Vitamin D deficiency Osteoarthritis of right hip Lumbar degenerative disc disease GERD without esophagitis Impaired fasting glucose COPD (chronic obstructive pulmonary disease) Pure hypercholesterolemia Benign essential hypertension Coronary artery disease Surgical History History of bilateral cataract extraction History of lithotripsy History of angioplasty (~1995) History of prostatectomy Family History Father Lung cancer Mother Myocardial infarction CVD (cardiovascular disease) Social History Housing: House Alcohol intake: current Alcohol intake frequency: 0-2 drinks per day Patient Tobacco Use Status: Former Tobacco user Tobacco use type: Cigarette e-Cigarette/Vaping Use: Currently Using Second Hand Smoke Exposure: Yes service: No Current occupational status: retired Cognitive needs: No Hearing needs: No Vision needs: Yes Questionnaire PHQ-9 Over the last 2 weeks, how often have you been bothered by any of the following problems? 1. Little interest or pleasure in doing things: several days 2. Feeling down, depressed, or hopeless: several days 3. Trouble falling or staying asleep, or sleeping too much: several days 4. Feeling tired or having little energy: several days 5. Poor appetite or overeating: not at all 6. Feeling bad about yourself - or that you are a failure or have let yourself or your family down: not at all 7. Trouble concentrating on things, such as reading the newspaper or watching television: not at all 8. Moving or speaking so slowly that other people could have noticed. Or the opposite - being so fidgety or restless that you have been moving around a lot more than usual: not at all 9. Thoughts that you would be better off or of hurting yourself in some way: not at all Total score: 4 Depression Screening Interpretation: Positive Depression Screening Follow-up: Follow-up Visit Requested Depression Screening Done: Yes 75183 - PHQ-9 Billing: Yes Source: Developed by Drs. Venkata Hanson, Shala Burdick, Bladimir Mora and colleagues, with an educational iliana from [employer]. Thrive Questionnaire Date Thrive assessed: 12/15/24 I am a: Patient What is your living situation today?: I have a steady place to live Within the past 12 months, did the food you bought not last and you didn't have the money to get more?: Never true Within the past 12 months, did you worry whether your food would run out before you got money to buy more?: Never true Do you have trouble paying for medicines?: No Do you have trouble getting transportation to medical appointments?: No Do you have trouble paying your heating and electricity bill?: No Do you have trouble taking care of your child, family member or friend?: No Do you have trouble with day-to-day activities such as bathing, preparing meals, shopping, managing finances, etc.?: No Are you currently unemployed and looking for a job?: No Are you interested in more education?: No Please select the resources that you would like help with: None Currently or been in a relationship where the following occur: No concerns reported THRIVE Score: 0 AUDIT C Alcohol Use Questionnaire (AUDIT-C) 1. How often do you have a drink containing alcohol?: 2-4 times a month 2. How many drinks containing alcohol do you have on a typical day when you are drinking?: 1 or 2 3. How often do you have six or more drinks on one occasion?: Never Total Score: 2 Score Reviewed/Action Taken: Yes CHRISTINA-7 AMB Questionnaire CHRISTINA-7 Date CHRISTINA - 7 assessed: 12/15/24 Feeling nervous, anxious, or on edge: 0 = Not at all Not being able to stop or control worryin = Not at all Worrying too much about different things: 0 = Not at all Trouble relaxin = Not at all Being so restless that it is hard to sit still: 0 = Not at all Becoming easily annoyed or irritable: 0 = Not at all Feeling afraid as if something awful might happen: 0 = Not at all Total CHRISTINA-7 score (0-4 normal; 5-9 mild; 10-14 moderate; 15-21 severe): 0 Source: Developed by Drs. Venkata Hanson, Shala Burdick, Bladimir Mora and colleagues, with an educational iliana from [employer]. Review of Systems Const Denies chills, Reports difficulty sleeping (mostly due to his neck and arm symptoms lately), Denies fatigue, Denies fever(s) and Denies headache(s) ENT Denies dysphagia, Denies dizziness, Denies otalgia, Denies headache(s), Reports neck pain, Denies odynophagia and Denies sore throat Card Denies chest pain, Denies palpitations and Denies dyspnea Resp Denies chest congestion, Denies cough and Denies dyspnea GI Denies abdominal pain, Denies constipation, Denies dysphagia, Denies heartburn, Denies diarrhea, Denies nausea, Denies odynophagia and Denies vomiting Denies dysuria, Reports nocturia, Reports urinary frequency and Reports urinary incontinence Musc Reports back pain (mild), Reports neck pain and Reports numbness (on and off in the left arm) Skin/Breast Denies rash Neuro Denies dizziness, Denies headache(s) and Reports numbness (on and off in the left arm) Psych Reports anxiety Endo Denies fatigue and Denies palpitations Physical exam (Primary Care) Vital Signs: Last Vital Signs Pulse 84 12/15/24 09:16 BP 132/80 12/15/24 09:16 Pulse Ox 96 12/15/24 09:16 Oxygen Delivery Method Room Air 12/15/24 09:16 BMI result Body Mass Index 34.9 Tobacco/Smoking Status: Tobacco use Status Tobacco use date assessed 12/15/24 12/15/24 09:20 Patient Tobacco Use Status Former Tobacco user 12/15/24 09:20 Tobacco use type Cigarette 12/15/24 09:20 e-Cigarette/Vaping Use Currently Using 12/15/24 09:20 PHQ-9: PHQ-9 Score PHQ-9: Total score 4 12/15/24 10:10 Depression Screening Interpretation: Positive Depression Screening Follow-up: Follow-up Visit Requested Thrive Assessment: Date of Thrive Assessment Date Thrive assessed 12/15/24 12/15/24 09:20 Currently or been in a relationship where the following occur: No concerns reported Const General: no acute distress and alert HENMT Ears: TM's normal bilaterally and EAC's normal Throat: Yes posterior oropharynx normal and Yes tonsils normal (no TP congestion noted) Neck Neck: Yes supple and No lymphadenopathy Thyroid: Thyroid normal Carotids: no bruits Resp Auscultation: clear to auscultation bilaterally, no rales and no wheezes Cardio Rate: regular rate Rhythm: regular rhythm Heart sounds: no murmurs GI Palpation (GI): Soft to palpation and nontender Auscultation: normal bowel sounds General: Yes no CVA tenderness Back/Spine/Pelvis Back: no CVA tenderness Cervical Spine: cervical muscular tenderness (especially on the left side) Thoracic/Lumbar Spine: lumbar spinal tenderness (mild) Skin Rashes: no rashes Extrem General: Yes no clubbing, cyanosis or edema Results Reviewed Results Reviewed: Laboratory Tests 12/12/24 06:18 WBC 7.3 Hgb 14.4 Hct 44.4 Plt Count 212 Sodium 142 Potassium 4.2 Creatinine 0.85 Estimated GFR > 60 Fasting Glucose 101 H Hemoglobin A1c % 6.0 Calcium 8.8 AST 32 ALT 46 H Triglycerides 140 Cholesterol 129 LDL Cholesterol, Calc 64 HDL Cholesterol 37 L 25-OH Vitamin D Total 51.8 TSH 1.19 Ur Specific [place] 1.020 Urine Protein Negative Urine Glucose (UA) Negative Urine Blood Small (1+) H Urine Nitrite Negative Ur Leukocyte Esterase Negative Coding Level of Care Code Est Pt Level 4 (00909) Diagnoses Coronary artery disease involving [place] coronary artery of [place] heart without angina pectoris I25.10 Associated angina: without angina Coronary Disease-Associated Artery/Lesion type: [place] artery [place] vs. transplanted heart: [place] heart Pure hypercholesterolemia E78.00 Carotid atherosclerosis, unspecified laterality I65.29 Laterality: unspecified laterality Benign essential hypertension I10 Chronic obstructive pulmonary disease, unspecified COPD type J44.9 COPD type: unspecified COPD Left cervical radiculopathy M54.12 Impaired fasting glucose R73.01 GERD without esophagitis K21.9 Zenker's (hypopharyngeal) diverticulum K22.5 Degeneration of intervertebral disc of lumbar region with discogenic back pain M51.360 Disc-related pain type: discogenic back pain only Primary osteoarthritis of right hip M16.11 Osteoarthritis type: primary Vitamin D deficiency E55.9 History of prostate cancer Z85.46 Urinary incontinence, unspecified type R32 Urinary Incontinence type: unspecified incontinence Insomnia, unspecified type G47.00 Insomnia type: unspecified Smoker F17.200 Obesity (BMI 30-39.9) E66.9 Additional Codes PHQ-9 - 48577 - PHQ-9 Billing: Yes ([id number]) Assessment & Plan Assessment & Plan (1) Coronary artery disease: Comment: S/P DC, angioplasty and stent insertion in 1995 Code(s): I25.10 - Atherosclerotic heart disease of [place] coronary artery without angina pectoris Category: Medical Qualifiers: Associated angina: without angina Coronary Disease-Associated Artery/[place] type: [place] artery [place] vs. transplanted heart: [place] heart Qualified Code(s): I25.10 - Atherosclerotic heart disease of [place] coronary artery without angina pectoris Plan: S/P DC, angioplasty and stent insertion in 1995 - patient currently remains asymptomatic (he has no anginal symptoms) Continue low dose Aspirin 81 mg QD and Metoprolol ER 150 mg QD Follow up with [facility] as scheduled - he is now seeing Dr. Mcgill at [facility] States that he had an echocardiogram done at [facility] last year - was advised that aside from some calcifications on the aortic valve, his echocardiogram was grossly normal (2) Pure hypercholesterolemia: Code(s): E78.00 - Pure hypercholesterolemia, unspecified Category: Medical Plan: Results of his labs done a few days ago reviewed and discussed with patient Reinforced low cholesterol diet Continue Atorvastatin 80 mg QD and Ezetimibe 10 mg QD Will recheck his labs and fasting lipids in 4 months for follow up (3) Carotid atherosclerosis: Code(s): I65.29 - Occlusion and stenosis of unspecified carotid artery Category: Medical Qualifiers: Laterality: unspecified laterality Qualified Code(s): I65.29 - Occlusion and stenosis of unspecified carotid artery Plan: He was sent previously for bilateral carotid US for further evaluation, per patient's request (mostly due to his dentist telling him that there were calcifications seen in his neck on routine dental x-rays) but insurance declined to cover his procedure Patient currently has no symptoms related to carotid stenosis and he has no audible bruits noted on carotid exam (4) Benign essential hypertension: Code(s): I10 - Essential (primary) hypertension Category: Medical Plan: Reinforced low sodium diet - goal is systolic BP of at least 130 to 140 mm due to his cardiac history Continue Benazepril 40 mg QD, Metoprolol ER 150 mg (50 mg x 3 tablets) QD and Amlodipine 2.5 mg QD (5) COPD (chronic obstructive pulmonary disease): Code(s): J44.9 - Chronic obstructive pulmonary disease, unspecified Category: Medical Qualifiers: COPD type: unspecified COPD Qualified Code(s): J44.9 - Chronic obstructive pulmonary disease, unspecified Plan: Controlled - reinforced again the importance of smoking cessation, even though patient is now only smoking electronic cigarettes that has reportedly very little nicotine in them (6) Left cervical radiculopathy: Code(s): M54.12 - Radiculopathy, cervical region Category: Medical Plan: Patient states that his symptoms started a couple of months ago when he apparently strained/hurt his neck while playing golf He has been experiencing recurrent numbness and tingling sensation in his left arm since He is currently scheduled for an MRI of the cervical spine later this week for further evaluation He is also scheduled for EMG next week Follow-up with Dr. Miguel at [facility] as scheduled (7) Impaired fasting glucose: Code(s): R73.01 - Impaired fasting glucose Category: Medical Plan: His HgbA1c is at 6.0% on his labs done a few days ago (was previously at 5.9% a few months ago) Reinforced low calorie/low carb diet;exercise as tolerated (8) GERD without esophagitis: Code(s): K21.9 - Gastro-esophageal reflux disease without esophagitis Category: Medical Plan: Dietary restrictions reinforced Continue Pantoprazole 40 mg QD (9) Zenker's (hypopharyngeal) diverticulum: Code(s): K22.5 - Diverticulum of esophagus, acquired Category: Medical Plan: His upper GI series done last year revealed (+) mild cricopharyngeal achalasia, tiny Zenker's diverticulum, mildly disorganized esophageal peristalsis and small type I hiatal hernia Reinforced dietary restrictions/modifications to help minimize his symptoms Follow up with GI as scheduled (10) Lumbar degenerative disc disease: Code(s): M51.36 - Other intervertebral disc degeneration, lumbar region Category: Medical Qualifiers: Disc-related pain type: discogenic back pain only Qualified Code(s): M51.360 - Other intervertebral disc degeneration, lumbar region with discogenic back pain only Plan: Reinforced activity and weight-lifting restrictions to minimize aggravating his low back pain (11) Osteoarthritis of right hip: Code(s): M16.11 - Unilateral primary osteoarthritis, right hip Category: Medical Qualifiers: Osteoarthritis type: primary Qualified Code(s): M16.11 - Unilateral primary osteoarthritis, right hip Plan: He takes OTC Tylenol PRN with some relief of his symptoms (12) Vitamin D deficiency: Code(s): E55.9 - Vitamin D deficiency, unspecified Category: Medical Plan: Continue Vitamin D3 1000 units QD (13) History of prostate cancer: Code(s): Z85.46 - Personal history of malignant neoplasm of prostate Category: Medical Plan: S/P prostatectomy in [place] years ago Follow up with urology as scheduled for continuing surveillance He was previously seeing urology in [place] but his doctor there retired recently and he is now seeing Dr. Jurado here locally (14) Urinary incontinence: Code(s): R32 - Unspecified urinary incontinence Category: Medical Qualifiers: Urinary Incontinence type: unspecified incontinence Qualified Code(s): R32 - Unspecified urinary incontinence Plan: Possible overflow incontinence in light of his recent recurrent suprapubic pressure - may be experiencing outlet obstruction although he had a prostatectomy done He was started on a trial of Myrbetriq 25 mg Q HS but patient states that the Rx did not help and he stopped taking it after a while States that the higher dose of 50 mg was helping only slightly better and he also stopped taking it after a while He was started on Gemtesa 75 mg QD by urology but he never took it States that Dr. Jurado is considering doing a cystoscopy and inserting a bladder sling and he was scheduled for a sling procedure a few weeks ago but he ended up canceling the procedure when he contracted COVID and has not been able to reschedule since He is advised to contact urology and get this rescheduled HANNAH Follow up with urology as scheduled (15) Insomnia: Code(s): G47.00 - Insomnia, unspecified Category: Medical Qualifiers: Insomnia type: unspecified Qualified Code(s): G47.00 - Insomnia, unspecified Plan: Sleep hygiene reinforced Patient has tried several OTC sleep aids for a while now without any relief Will start him on Zolpidem 5 mg Q HS PRN (16) Smoker: Code(s): F17.200 - Nicotine dependence, unspecified, uncomplicated Category: Social Hx Plan: Patient is counseled again on complete smoking cessation - patient is now smoking electronic cigarettes exclusively and states that he is still working on quitting completely (17) Obesity (BMI 30-39.9): Code(s): E66.9 - Obesity, unspecified Category: Medical Plan: Reinforced diet/exercise as tolerated/lose weight Plan Follow up in 4 months Orders: Orders Complete Blood Count Auto Diff 4 Months D64.9 - Anemia, unspecified TSH reflex Free T4 4 Months E78.00 - Pure hypercholesterolemia, unspecified Comprehensive [place]. Panel Fast 4 Months E78.00 - Pure hypercholesterolemia, unspecified Lipid Panel 4 Months E78.00 - Pure hypercholesterolemia, unspecified UA CC w/rflx Micro + Cult 4 Months R30.0 - Dysuria Vitamin D 25-OH Total 4 Months E55.9 - Vitamin D deficiency, unspecified Medications: New zolpidem 5 mg PO BEDTIME PRN 30 tabs 1RF insomnia 30 days Refilled pyridoxine (vitamin B6) 50 mg PO DAILY 90 tabs 1RF 90 days N20.0 - Calculus of kidney
[2024-12-15 09:16] VITALS: BP 132/80; PULSE 84; O2SAT 96; BMI 34.9
--- OUTSIDE RECORDS SUMMARY | 2024-12-15 09:49 | XMS_ITS | Clinical Summary ---
Author Organization [facility] Address [address] [place] [address] Care Team Providers Care Tie Puller Name Role Phone Unavailable Primary Care Provider [...]
== END 2024-12-15 10:32 | disposition home or self-care (01) ==
LOC: HO.HMCH 09:10
PROVIDERS: PCP Internal Medicine; Visit Provider Internal Medicine
DX: I25.10 Atherosclerotic heart disease of native coronary artery without angina pectoris (principal); J44.9 Chronic obstructive pulmonary disease, unspecified; E78.00 Pure hypercholesterolemia, unspecified; I65.29 Occlusion and stenosis of unspecified carotid artery; I10 Essential (primary) hypertension; M54.12 Radiculopathy, cervical region; R73.01 Impaired fasting glucose; K21.9 Gastro-esophageal reflux disease without esophagitis; K22.5 Diverticulum of esophagus, acquired; M51.360 Other intervertebral disc degeneration, lumbar region with discogenic back pain only; M16.11 Unilateral primary osteoarthritis, right hip; E55.9 Vitamin D deficiency, unspecified

== ENCOUNTER → 2024-12-15 09:03 | Outpatient (BNVA) | payer MEDICARE, OTHER, SELFPAY | PROVIDERS: PCP Internal Medicine; Visit Provider Internal Medicine | DX: I25.10 Atherosclerotic heart disease of native coronary artery without angina pectoris (principal); E78.00 Pure hypercholesterolemia, unspecified; I65.29 Occlusion and stenosis of unspecified carotid artery; I10 Essential (primary) hypertension; J44.9 Chronic obstructive pulmonary disease, unspecified; M54.12 Radiculopathy, cervical region; R73.01 Impaired fasting glucose; K21.9 Gastro-esophageal reflux disease without esophagitis; K22.5 Diverticulum of esophagus, acquired; M51.360 Other intervertebral disc degeneration, lumbar region with discogenic back pain only; M16.11 Unilateral primary osteoarthritis, right hip; E55.9 Vitamin D deficiency, unspecified; R32 Unspecified urinary incontinence; G47.00 Insomnia, unspecified; E66.9 Obesity, unspecified; Z68.34 Body mass index [BMI] 34.0-34.9, adult; F17.200 Nicotine dependence, unspecified, uncomplicated; Z85.46 Personal history of malignant neoplasm of prostate; Z71.6 Tobacco abuse counseling; Z71.3 Dietary counseling and surveillance | CPT/HCPCS: 96127; 99212 ==

== ENCOUNTER 2025-01-28 11:01 | Outpatient (RCR) | payer MEDICARE, OTHER, SELFPAY ==
[2024-10-16 07:54] VITALS: BP 159/75; PULSE 82
--- NOTE | 2024-10-16 09:16 | MHC.PT.EP ---
[facility] [place] [facility] [place] [facility] [place] [facility] [address] [phone] F: [phone] F: [phone] F: [phone] F: [phone] Physical Therapy Plan of Care Date of Evaluation: 10/16/24 Date of Surgery: NA Diagnosis: Cervicalgia Low back pain Assessment: Austen is a 74 year old male who is referred to PT for cervicalgia and low back pain . Austen denies having low back pain. He presents to PT with pain in his neck which radiates down to L UE. He symptoms started about 2 weeks back after playing golf. On PT examination he presented with no TTP, 5-8/10 pain in neck and radiating down to L UE, limited cervical motion, decreased strength, and altered posture. He lives with his and is independent with all ADLS but has pain with them. He enjoys golfing but has not been since the pain. His symptoms are suggestive of possible cervical derangement symptoms. He would benefit from skilled PT to address the aforementioned impairments and improve tolerance to functional activities. Frequency and Duration: The patient will be seen 2/week for 5 weeks Short Term Goals: 1. Pt will have 50% decrease in pain which will enable him to tolerate sitting for 30 minutes in 2 weeks 2. Pt will be able to move cervical spine through full range of motion with a pain no more than 2/10 which will enable him to tolerate sleeping in his bed and turning head for driving in 3 weeks. [employer] Goals: 1. Pt will demonstrate an increase in muscle strength by 1 grade which will enable him to perform all ADLS without pain in 5 weeks 2. Pt will be independent with all HEP and return to PLOF in 5 weeks. Treatment Plan: Modalities to reduce pain, spasms and effusion. Manual therapy to restore motion and function. Therapeutic exercise to improve strength and flexibility. Neuromuscular re-education for posture and balance. Therapeutic activities to return to functional activities of daily living. Electronically signed by: Melody Jeffers PT DPT Please sign and return to therapist. Thank you for your referral.
--- NOTE | 2025-02-27 14:52 | MHC.PT.DC ---
[facility] [place] Office [place] Office [place] Office [address] Amaury Haile [address] [phone] F: [phone] F: [phone] F: [phone] F: [phone] Physical Therapy Discharge Report Diagnosis: Cervicalgia Low back pain Date of Surgery: NA Date of Evaluation: 10/16/24 Date of Discharge: 02/27/25 Treatments to Date: 15 Cancellations to Date: 0 No Shows to Date: 0 Discharge Status: Improved Function Independent with HEP Discharge Summary: Austen completed 15 PT visits and has made significant improvements with PT. He has finally started doing his HEP and is independent with them. He has noticed improvements in his symptoms with exercises and medications. He is therefore being d/c from PT. He was in agreement with the plan. I reviewed all exercises with him today. Electronically signed by: Melody Jeffers PT DPT Please sign and return to therapist. Thank you for your referral.
== END 2025-02-27 14:52 | disposition home or self-care (01) ==
LOC: HO.PT 11:01
PROVIDERS: PCP Internal Medicine; Visit Provider Internal Medicine
DX: M54.2 Cervicalgia (principal); M25.519 Pain in unspecified shoulder; M79.603 Pain in arm, unspecified
CPT/HCPCS: 97012; 97110; 97112; 97140; 97161

== ENCOUNTER 2025-02-01 04:09 | Emergency (ER) | payer MEDICARE, OTHER, SELFPAY ==
--- NOTE | ~2025-02-01 | US_ITS ---
CLINICAL HISTORY: swelling Venous duplex ultrasound left lower extremity Comparison: None provided Findings: The visualized deep veins are fully compressible with normal Doppler color flow and spectral tracings. No popliteal cyst. IMPRESSION: 1. Negative for left lower extremity deep vein thrombosis. This document has been electronically signed by: Oracio Sal MD on 02/01/2025 08:50:52
[2025-02-01 04:15] VITALS: BP 184/82; PULSE 82; RESP 20; TEMP 36.6; O2SAT 95; BMI 35.2
[2025-02-01 04:33] LABS: Hematocrit 44.3 % (42.0-52.0); Hemoglobin 14.4 g/dl (14.0-18.0); Imm Gran Abs Auto 0.03 X10*3/uL (0.00-0.03); Imm Gran Pct Auto 0.4 % (0.0-0.4); Lymphocytes Absolute Auto 1.4 X10*3/uL (1.2-4.9); MANUAL DIFF FLAG NO; Mean Corpuscular HGB Conc 32.5 g/dl (31.0-36.0); Mean Corpuscular Hemoglobin 29.1 pg (27.0-33.0); Mean Corpuscular Volume 89.5 fL (80.0-98.0); NRBC Abs Auto 0.000 X10*3/uL (0.0-0.012); NRBC Pct Auto 0.0 /100WBC (0.0-0.2); Platelet Count 208 X10*3/uL (160-400); Red Blood Count 4.95 X10*6/uL (4.60-5.80); White Blood Count 7.8 X10*3/uL (4.8-10.8)
--- OUTSIDE RECORDS SUMMARY | 2025-02-01 04:34 | XMS_ITS | Clinical Summary ---
Author Organization [facility] Address [address] [place] [address] Care Team Providers Care Industrial Sweeper Cleaner Name Role Phone Unavailable Primary Care Provider [...]
[2025-02-01 04:42] LABS: D Dimer High Sensitivity 264 NG/ML
[2025-02-01 04:49] LABS: Alanine Aminotransferase 38 U/L (0-40); Albumin Level 4.3 g/dL (3.5-5.0); Alkaline Phosphatase 94 U/L (39-117); Anion Gap 14 (12-20); Aspartate Amino Transferase 35 U/L (5-37); Blood Urea Nitrogen 17 mg/dL (9-16); Calcium 9.0 mg/dL (8.4-10.2); Carbon Dioxide 26 mmol/L (22-29); Chloride 106 mmol/L (96-108); Creatinine Clr Calc Pharmacy 91.2; Estimated Glomerular Filt Rate > 60; Potassium 4.1 mmol/L (3.3-5.1); Sodium 142 mmol/L (135-145); Total Protein 7.0 g/dL (6.5-8.0)
[2025-02-01 05:43] VITALS: BP 147/69; PULSE 67; RESP 17; TEMP 36.9; O2SAT 98
--- NOTE | 2025-02-01 05:57 | ED.GENADULT ---
HPI - General Adult General Chief complaint: Extremity Problem Stated complaint: ? blood clots lower leg swelling Time Seen by Provider: 02/01/25 05:57 History of Present Illness ED Provider: Aubree MC narrative: The patient is a 74-year-old male who comes to the emergency room this morning because of an episode of pain and numbness in the left leg that came on fairly suddenly was morning. He says that he has been sleeping in a recliner chair for a long time because of problems related to left cervical radiculopathy symptoms. He says that about a month ago he was started on gabapentin because of pain in his left arm. He he also says that he has been having problems with swelling of his legs. This is in both legs, but more so in the left side. He has been wearing compression stockings. The swelling has gotten worse over the last few weeks and this morning, given his episode of pain and numbness and the swelling in the left leg he was concerned he might have a blood clot and he came to the emergency room. No chest pain or shortness of breath. No fever, sweats, chills. The patient has a history of a radical prostatectomy. He has had longstanding problems with urinary incontinence. No bowel control problems. 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 He says that he last saw his publications inspector about 2 months ago and is publications inspector thought his condition was stable. He had apparently had an echocardiogram with his publications inspector about 1 year ago. He says that the echocardiogram showed that ?my heart was strong. He has no history of known coronary disease or heart failure. Related Data Home Medications ?Medication ?Instructions ?Recorded ?Confirmed aspirin 81 mg tablet,delayed 81 mg PO DAILY 04/28/20 12/15/24 release cholecalciferol (vitamin D3) 50 50 mcg PO DAILY 12/08/20 12/15/24 mcg (2,000 unit) tablet multivitamin 1 tab PO DAILY 12/08/20 12/15/24 diphenhydramine HCl 25 mg capsule 50 mg PO BEDTIME PRN 08/16/23 12/15/24 (Benadryl) ezetimibe 10 mg tablet 10 mg PO DAILY 01/04/24 12/15/24 atorvastatin 80 mg tablet mg PO DAILY 08/01/24 12/15/24 Previous Rx's ?Medication ?Instructions ?Recorded fluticasone propionate 50 1 spray intranasal DAILY PRN nasal 04/24/22 mcg/actuation nasal congestion #16 grams spray,suspension metoprolol succinate 50 mg 150 mg (3 x 50 mg) PO DAILY 90 08/12/24 tablet,extended release 24 hr days #270 tabs pantoprazole 40 mg tablet,delayed 40 mg PO DAILY 90 days #90 tabs 08/12/24 release (Protonix) pyridoxine (vitamin B6) 50 mg 50 mg PO DAILY 90 days #90 tabs 12/15/24 tablet zolpidem 5 mg tablet 5 mg PO BEDTIME PRN insomnia 30 12/15/24 days #30 tabs benazepril 40 mg tablet 40 mg PO DAILY #90 tabs 12/17/24 amlodipine 2.5 mg tablet 2.5 mg PO DAILY #30 tabs 01/28/25 Allergies Allergy/AdvReac Type Severity Reaction Status Date / Time ciprofloxacin (From CIPRO) Allergy Severe ERYTHEMA Verified 02/01/25 04:18 MULTIFORMA Sulfa (Sulfonamide Allergy Intermediate RASH Verified 02/01/25 04:18 Antibiotics) (SULFA (SULFONAMIDE ANTIBIOTICS)) amoxicillin AdvReac Severe Swelling Verified 02/01/25 04:18 Review of Systems Review of Systems: Yes all other systems are reviewed and are negative [facility] Past Medical History Medical History (Updated 02/01/25 @ 09:22 by Aaron Mak MD) Insomnia Obesity (BMI 30-39.9) Vaccine counseling Epidermoid cyst Smoker History of prostate cancer Vitamin D deficiency Osteoarthritis of right hip Lumbar degenerative disc disease GERD without esophagitis Impaired fasting glucose COPD (chronic obstructive pulmonary disease) Pure hypercholesterolemia Benign essential hypertension Coronary artery disease Surgical History History of bilateral cataract extraction History of lithotripsy History of angioplasty (~1995) History of prostatectomy Family History Family History Father Lung cancer Mother Myocardial infarction CVD (cardiovascular disease) Social History Social History Housing: House Alcohol intake: current Alcohol intake frequency: 0-2 drinks per day Patient Tobacco Use Status: Former Tobacco user Tobacco use type: Cigarette e-Cigarette/Vaping Use: Currently Using Second Hand Smoke Exposure: Yes Advance Directives Date on File: 09/30/20 service: No Current occupational status: retired Cognitive needs: No Hearing needs: No Vision needs: Yes Physical Exam ED Vital Signs: Vital Signs - 24 hr 02/01/25 04:15 02/01/25 05:43 Temperature 97.9 F 98.5 F Pulse Rate 82 67 Respiratory Rate 20 17 Blood Pressure 184/82 H 147/69 H Pulse Oximetry 95 98 Oxygen Delivery Method Room Air Room Air BMI result Body Mass Index 35.2 Const Other: The patient is a 74 year old male who was awake and alert does not appear in acute distress. HENMT Other: The face is symmetrical. ?Mucous membranes moist. Eyes Other: Pupils are round equal, conjunctivae are clear, extraocular movements intact Neck Neck: Yes normal visual inspection, Yes full ROM and Yes no JVD Resp Effort & Inspection: normal respiratory effort Auscultation: clear to auscultation bilaterally Cardio Rate: regular rate Rhythm: regular rhythm Heart sounds: S1 normal heart sound present and S2 normal heart sound present Skin Other: The skin is dry and unremarkable Neuro Other: The patient seems to have intact sensation in the lower extremities. He has 1 to 2+ reflexes at the knees and ankles. Reflexes are symmetrical. Toes go down bilaterally. Strength is intact in all extremities. Cranial nerves are grossly intact. Extrem Other: The patient has pitting edema of both lower legs, more significant on the left leg. Both feet are well-perfused. Medical Decision Making Medical Decision Making MDM Narrative: The patient is a 74-year-old male who has developed some edema of both lower legs over the last couple of weeks, more so in the left leg. He wears compression stockings. He has some sense that his swelling might be related to gabapentin which was relatively recently prescribed for left arm cervical radiculopathy symptoms. He has also on amlodipine. He does not describe any chest symptoms or shortness of breath or orthopnea. Clinically he does not appear acutely ill. He has a an unremarkable CBC. Metabolic panel is also unremarkable. He has a mildly elevated D-dimer of 264. A DVT ultrasound of the left leg shows no clot or other pathology. The patient does not have any findings on exam or by history to suggest that this peripheral edema should be related to any kind of heart failure. He looks quite well overall. He will be discharged to follow up with [facility] (his gabapentin was prescribed through this office) and also with his primary care doctor. He should return if worse. Lab Data 02/01/25 04:28 02/01/25 04:28 Labs: Lab Results 02/01/25 Range/Units 04:28 WBC 7.8 (4.8-10.8) X10*3/uL RBC 4.95 (4.60-5.80) X10*6/uL Hgb 14.4 (14.0-18.0) g/dl Hct 44.3 (42.0-52.0) % MCV 89.5 (80.0-98.0) fL MCH 29.1 (27.0-33.0) pg MCHC 32.5 (31.0-36.0) g/dl RDW 14.7 (11.0-16.0) % Plt Count 208 (160-400) X10*3/uL MPV 11.8 (9.4-12.4) fL Immature Gran % (Auto) 0.4 (0.0-0.4) % Neut % (Auto) 67.1 (45-73) % Lymph % (Auto) 17.7 L (20-40) % [place] % (Auto) 12.8 H (2-11) % Eos % (Auto) 1.7 (0-4) % Baso % (Auto) 0.3 (0-2) % Lymph # (Auto) 1.4 (1.2-4.9) X10*3/uL [place] # (Auto) 1.0 (0.1-1.2) X10*3/uL Eos # (Auto) 0.1 (0.0-0.4) X10*3/uL Baso # (Auto) 0.0 (0.0-0.2) X10*3/uL Abs Immat Gran (auto) 0.03 (0.00-0.03) X10*3/uL Absolute Neuts (auto) 5.2 (2.0-8.3) x10*3/uL Absolute Nucleated RBC 0.000 (0.0-0.012) X10*3/uL Nucleated RBC % (auto) 0.0 (0.0-0.2) /100WBC D-Dimer High Sensitivty 264 NG/ML Sodium 142 (135-145) mmol/L Potassium 4.1 (3.3-5.1) mmol/L Chloride 106 (96-108) mmol/L Carbon Dioxide 26 (22-29) mmol/L Anion Gap 14 (12-20) BUN 17 H (9-16) mg/dL Creatinine 0.86 (0.5-1.4) mg/dL Estim Creat Clear Calc 91.2 Estimated GFR > 60 Random Glucose 113 (60-115) mg/dL Calcium 9.0 (8.4-10.2) mg/dL Total Bilirubin 0.4 (0.0-1.0) mg/dL AST 35 (5-37) U/L ALT 38 (0-40) U/L Alkaline Phosphatase 94 (39-117) U/L Total Protein 7.0 (6.5-8.0) g/dL Albumin 4.3 (3.5-5.0) g/dL Discharge Plan Discharge Clinical Impression: Lower extremity edema Patient Disposition: Home, Self-Care Instructions: Leg Edema (ED) Additional Instructions: You do not seem to have a blood clot. Please continue to work with [facility] regarding your gabapentin. I would also recommend following up with your primary care doctor to discuss this new swelling of your legs. Return to the emergency room if you feel significantly worse, especially if you are short of breath or have chest pain. Prescriptions: No Action metoprolol succinate 50 mg tablet extended release 24 hr 150 mg PO DAILY 90 Days Qty: 270 3RF pantoprazole [Protonix] 40 mg tablet,delayed release (DR/EC) 40 mg PO DAILY 90 Days Qty: 90 3RF benazepril 40 mg tablet 40 mg PO DAILY Qty: 90 1RF amlodipine 2.5 mg tablet 2.5 mg PO DAILY Qty: 30 2RF aspirin 81 mg tablet,delayed release (DR/EC) 81 mg PO DAILY multivitamin Tablet 1 tab PO DAILY cholecalciferol (vitamin D3) 50 mcg (2,000 unit) tablet 50 mcg PO DAILY fluticasone propionate 50 mcg/actuation spray,suspension 1 spray intranasal DAILY PRN (Reason: nasal congestion) Qty: 16 5RF Rx Instructions: administer into each nostril diphenhydramine HCl [Benadryl] 25 mg capsule 50 mg PO BEDTIME PRN ezetimibe 10 mg tablet 10 mg PO DAILY atorvastatin 80 mg tablet PO DAILY zolpidem 5 mg tablet 5 mg PO BEDTIME PRN (Reason: insomnia) 30 Days Qty: 30 1RF pyridoxine (vitamin B6) 50 mg tablet 50 mg PO DAILY 90 Days Qty: 90 1RF Referrals: [facility] [Provider Group, Orthopedics] Tha Adams MD [Primary Care Provider, Internal Medicine] Print Language: Chinese
== END 2025-02-01 09:26 | disposition home or self-care (01) ==
PROVIDERS: Emergency Provider Emergency Medicine; PCP Internal Medicine
DX: R60.0 Localized edema (principal); R20.0 Anesthesia of skin; Z79.899 Other long term (current) drug therapy; Z87.891 Personal history of nicotine dependence
CPT/HCPCS: 36415; 80053; 85025; 85379; 93971; 99284

== ENCOUNTER → 2025-02-01 06:10 | Outpatient (BNV) | payer MEDICARE, OTHER, SELFPAY | PROVIDERS: Emergency Provider Emergency Medicine; PCP Internal Medicine; Visit Provider Specialist | DX: R22.42 Localized swelling, mass and lump, left lower limb (principal) | CPT/HCPCS: 93971 ==

== ENCOUNTER 2025-03-13 10:46 | Outpatient (REF) | payer MEDICARE, OTHER, SELFPAY ==
[2025-03-13 10:58] VITALS: BP 168/78; PULSE 96; RESP 18; TEMP 36.7; O2SAT 95; BMI 35.9
--- NOTE | 2025-03-13 10:58 | ED.GENADULT ---
HPI - General Adult General Chief complaint: Nausea/Vomiting/Diarrhea Stated complaint: Nausea Vomiting Diarrhea Time Seen by Provider: 03/13/25 12:50 Source: patient, RN notes reviewed and old records reviewed Mode of arrival: ambulatory History of Present Illness ED Provider: Arianna Ferraro PA-C HPI narrative: 74-year-old male with a past medical history GERD, COPD, HLD, BPH, CAD s/p angioplasty and stent, prostate CA with prostatectomy, presenting to the ED complaining of mild abdominal discomfort and diarrhea x 2 episodes since this morning. Patient concerned he inhaled mouse feces fumes when he vacuumed his basement 1 week ago. Denies fever, chills, suspicious food intake, travel, new medication, melena, bloody stools, dysuria/hematuria Related Data Home Medications ?Medication ?Instructions ?Recorded ?Confirmed aspirin 81 mg tablet,delayed 81 mg PO DAILY 04/28/20 12/15/24 release cholecalciferol (vitamin D3) 50 50 mcg PO DAILY 12/08/20 12/15/24 mcg (2,000 unit) tablet multivitamin 1 tab PO DAILY 12/08/20 12/15/24 diphenhydramine HCl 25 mg capsule 50 mg PO BEDTIME PRN 08/16/23 12/15/24 (Benadryl) ezetimibe 10 mg tablet 10 mg PO DAILY 01/04/24 12/15/24 atorvastatin 80 mg tablet mg PO DAILY 08/01/24 12/15/24 Previous Rx's ?Medication ?Instructions ?Recorded fluticasone propionate 50 1 spray intranasal DAILY PRN nasal 04/24/22 mcg/actuation nasal congestion #16 grams spray,suspension metoprolol succinate 50 mg 150 mg (3 x 50 mg) PO DAILY 08/12/24 tablet,extended release 24 hr days #270 tabs pantoprazole 40 mg tablet,delayed 40 mg PO DAILY 90 days #90 tabs 08/12/24 release (Protonix) pyridoxine (vitamin B6) 50 mg 50 mg PO DAILY 90 days #90 tabs 12/15/24 tablet zolpidem 5 mg tablet 5 mg PO BEDTIME PRN insomnia 30 12/15/24 days #30 tabs benazepril 40 mg tablet 40 mg PO DAILY #90 tabs 12/17/24 amlodipine 2.5 mg tablet 2.5 mg PO DAILY #30 tabs 01/28/25 Allergies Allergy/AdvReac Type Severity Reaction Status Date / Time ciprofloxacin (From CIPRO) Allergy Severe ERYTHEMA Verified 03/13/25 11:01 MULTIFORMA Sulfa (Sulfonamide Allergy Intermediate RASH Verified 03/13/25 11:01 Antibiotics) (SULFA (SULFONAMIDE ANTIBIOTICS)) amoxicillin AdvReac Severe Swelling Verified 03/13/25 11:01 Review of Systems Review of Systems: Yes all other systems are reviewed and are negative Constitutional: Constitutional: Reports as per [facility] Past Medical History Attestation statement: The following information was validated with the patient. Source: old records reviewed Medical History Insomnia Obesity (BMI 30-39.9) Vaccine counseling Epidermoid cyst Smoker History of prostate cancer Vitamin D deficiency Osteoarthritis of right hip Lumbar degenerative disc disease GERD without esophagitis Impaired fasting glucose COPD (chronic obstructive pulmonary disease) Pure hypercholesterolemia Benign essential hypertension Coronary artery disease Surgical History History of bilateral cataract extraction History of lithotripsy History of angioplasty (~1995) History of prostatectomy Family History Family History Father Lung cancer Mother Myocardial infarction CVD (cardiovascular disease) Social History Social History Housing: House Alcohol intake: current Alcohol intake frequency: 0-2 drinks per day Patient Tobacco Use Status: Former Tobacco user Tobacco use type: Cigarette Smoked in Last 30 Days: No e-Cigarette/Vaping Use: Currently Using Second Hand Smoke Exposure: Yes Use of substances other than those prescribed or required for medical reasons: No Advance Directives: Yes Advance Directives on File: Yes Advance Directives Date on File: 02/01/25 service: No Current occupational status: retired Cognitive needs: No Hearing needs: No Vision needs: Yes Physical Exam ED Vital Signs: Vital Signs - 24 hr 03/13/25 10:58 03/13/25 14:19 Temperature 98.0 F 98.0 F Pulse Rate 96 96 Respiratory Rate 18 18 Blood Pressure 168/78 H 168/78 H Pulse Oximetry 95 95 Oxygen Delivery Method Room Air Room Air BMI result Body Mass Index 35.9 Const General: cooperative, healthy appearing and no acute distress Orientation/consciousness: patient oriented x3 Limitations: no limitations HENMT Head: Yes normal to inspection and Yes atraumatic Ears: hearing grossly normal bilaterally General nose exam: Normal external nose present Face and sinus: Yes normal facial exam Eyes General: appearance normal, both eyes and all related structures EOM: EOMs intact bilaterally Neck Neck: Yes normal visual inspection and Yes no meningeal signs Resp Effort & Inspection: normal respiratory effort and no respiratory distress Cardio Rate: regular rate GI Inspection: Yes normal to inspection Palpation (GI): Soft to palpation, nontender, no guarding and not rigid General: Yes no CVA tenderness Back/Spine/Pelvis Back: no CVA tenderness Skin Rashes: no rashes Wounds: no wounds Neuro General: patient oriented x3, tone normal and no meningeal signs Cranial nerves: Yes CN's II-XII intact bilaterally Gait exam (Neuro): Normal gait present Extrem General: Yes normal to inspection Course Course Course Narrative: Gaby Blount SERVICE TECHNICIAN COPIER 03/13 5945 This is a rapid medical exam. Deferred additional HPI, ROS, PE to primary provider. 74 yo male with PMH of CAD, prostate CA with prostactomy, HTN, HLD, GERD here with complaints of diarrhea x 24 hours (2 episodes), mild abdominal pain. No vomiting. Concerned that one week ago he inhaled fumes from vacuuming mouse feces. Will obtain labs, stool studies, viral testing VSS -1403--labs reassuring. UA not infected -viral testing negative > patient not able to supply stool sample in the ED. Will be sent home with outpatient lab slip to bring stool to lab directly Results discussed with patient including worrisome signs and symptoms and strict return precautions, and when to return to the emergency department. They verbalized understanding and feel safe for discharge at this time. Medical Decision Making Medical Decision Making MDM Narrative: 74-year-old male with a past medical history GERD, COPD, HLD, BPH, CAD s/p angioplasty and stent, prostate CA with prostatectomy, presenting to the ED complaining of mild abdominal discomfort and diarrhea x 2 episodes since this morning. On exam vital signs stable, NAD, nontoxic appearing, abdomen is soft and nontender. No rebound or guarding. No CVAT. Concern for gastroenteritis vs colitis. Low suspicion for appendicitis/diverticulitis or cholecystitis/pancreatitis at this time with nontender abdomen. Unlikely renal stone. Plan: Labs, UA, GI panel, viral testing Please refer to course for remaining clinical decision making, interpretation of labs/imaging results, and discussions with consultants and/or family members. Differential Diagnosis Differential Diagnoses: The differential diagnosis associated with the presentation includes As above Admission/Observation Consideration of admission/observation: Escalation of care including admission/observation considered Lab Data MDM Lab Attestation statement: I reviewed the patient's lab results. 03/13/25 11:20 03/13/25 11:20 Labs: Lab Results 03/13/25 03/13/25 03/13/25 Range/Units 11:15 11:20 12:28 WBC 8.5 (4.8-10.8) X10*3/uL RBC 5.10 (4.60-5.80) X10*6/uL Hgb 14.6 (14.0-18.0) g/dl Hct 45.7 (42.0-52.0) % MCV 89.6 (80.0-98.0) fL MCH 28.6 (27.0-33.0) pg MCHC 31.9 (31.0-36.0) g/dl RDW 14.3 (11.0-16.0) % Plt Count 206 (160-400) X10*3/uL MPV 12.1 (9.4-12.4) fL Immature Gran % (Auto) 0.4 (0.0-0.4) % Neut % (Auto) 73.5 H (45-73) % Lymph % (Auto) 15.4 L (20-40) % [place] % (Auto) 9.7 (2-11) % Eos % (Auto) 0.6 (0-4) % Baso % (Auto) 0.4 (0-2) % Lymph # (Auto) 1.3 (1.2-4.9) X10*3/uL [place] # (Auto) 0.8 (0.1-1.2) X10*3/uL Eos # (Auto) 0.1 (0.0-0.4) X10*3/uL Baso # (Auto) 0.0 (0.0-0.2) X10*3/uL Abs Immat Gran (auto) 0.03 (0.00-0.03) X10*3/uL Absolute Neuts (auto) 6.3 (2.0-8.3) x10*3/uL Absolute Nucleated RBC 0.000 (0.0-0.012) X10*3/uL Nucleated RBC % (auto) 0.0 (0.0-0.2) /100WBC Sodium 142 (135-145) mmol/L Potassium 3.9 (3.3-5.1) mmol/L Chloride 109 H (96-108) mmol/L Carbon Dioxide 25 (22-29) mmol/L Anion Gap 12 (12-20) BUN 15 (9-16) mg/dL Creatinine 0.85 (0.5-1.4) mg/dL Estim Creat Clear Calc 93.2 Estimated GFR > 60 Random Glucose 130 H (60-115) mg/dL Calcium 9.2 (8.4-10.2) mg/dL Magnesium 2.2 (1.6-2.6) mg/dL Total Bilirubin 0.5 (0.0-1.0) mg/dL Direct Bilirubin 0.2 (0.0-0.5) mg/dL AST 40 H (5-37) U/L ALT 42 H (0-40) U/L Alkaline Phosphatase 94 (39-117) U/L Total Protein 7.2 (6.5-8.0) g/dL Albumin 4.4 (3.5-5.0) g/dL Lipase 37 (8-78) U/L Urine Color Urine Appearance Urine pH (5.0-9.0) Ur Specific [place] (1.005-1.025) Urine Protein (Neg-Trace) mg/dL Urine Glucose (UA) (Negative) mg/dL Urine Ketones (Negative) mg/dL Urine Blood (Negative) Urine Nitrite (Negative) Ur Leukocyte Esterase (Negative) Stl C. cayetanensis PCR Cancelled Stool Rotavirus A PCR Cancelled Stl Adenov F 40/41 PCR Cancelled Stool Astrovirus (PCR) Cancelled Stool Campylobacter PCR Cancelled Stool Cryptosporidium PCR Cancelled Stl Sh Tox Pr E STEC PCR Cancelled Stool E coli O157 PCR Cancelled Stl Enterotoxigenic E PCR Cancelled Stool EPEC (PCR) Cancelled Stool EAEC (PCR) Cancelled Stl E. histolytica PCR Cancelled Stool Giardia Lamblia PCR Cancelled Stl P. shigelloides PCR Cancelled Stool Salmonella PCR Cancelled Stool Sapovirus (PCR) Cancelled Stl Shigella/EIEC PCR Cancelled St Y.enterocolitica PCR Cancelled Stool Vibrio (PCR) Cancelled Stl Vibrio cholerae PCR Cancelled Stl Norovirus GI/GII PCR Cancelled COVID-19 (LAINE) Negative (Negative) COVID-19 Clin Com See Note Influenza Type A (ARELI) Negative (Negative) Influenza Type B (ARELI) Negative (Negative) Influenza A & B Note See Note 03/13/25 Range/Units 13:29 WBC (4.8-10.8) X10*3/uL RBC (4.60-5.80) X10*6/uL Hgb (14.0-18.0) g/dl Hct (42.0-52.0) % MCV (80.0-98.0) fL MCH (27.0-33.0) pg MCHC (31.0-36.0) g/dl RDW (11.0-16.0) % Plt Count (160-400) X10*3/uL MPV (9.4-12.4) fL Immature Gran % (Auto) (0.0-0.4) % Neut % (Auto) (45-73) % Lymph % (Auto) (20-40) % [place] % (Auto) (2-11) % Eos % (Auto) (0-4) % Baso % (Auto) (0-2) % Lymph # (Auto) (1.2-4.9) X10*3/uL [place] # (Auto) (0.1-1.2) X10*3/uL Eos # (Auto) (0.0-0.4) X10*3/uL Baso # (Auto) (0.0-0.2) X10*3/uL Abs Immat Gran (auto) (0.00-0.03) X10*3/uL Absolute Neuts (auto) (2.0-8.3) x10*3/uL Absolute Nucleated RBC (0.0-0.012) X10*3/uL Nucleated RBC % (auto) (0.0-0.2) /100WBC Sodium (135-145) mmol/L Potassium (3.3-5.1) mmol/L Chloride (96-108) mmol/L Carbon Dioxide (22-29) mmol/L Anion Gap (12-20) BUN (9-16) mg/dL Creatinine (0.5-1.4) mg/dL Estim Creat Clear Calc Estimated GFR Random Glucose (60-115) mg/dL Calcium (8.4-10.2) mg/dL Magnesium (1.6-2.6) mg/dL Total Bilirubin (0.0-1.0) mg/dL Direct Bilirubin (0.0-0.5) mg/dL AST (5-37) U/L ALT (0-40) U/L Alkaline Phosphatase (39-117) U/L Total Protein (6.5-8.0) g/dL Albumin (3.5-5.0) g/dL Lipase (8-78) U/L Urine Color Yellow Urine Appearance Clear Urine pH 6.0 (5.0-9.0) Ur Specific [place] >= 1.030 H (1.005-1.025) Urine Protein Negative (Neg-Trace) mg/dL Urine Glucose (UA) Negative (Negative) mg/dL Urine Ketones Negative (Negative) mg/dL Urine Blood Negative (Negative) Urine Nitrite Negative (Negative) Ur Leukocyte Esterase Negative (Negative) Stl C. cayetanensis PCR Stool Rotavirus A PCR Stl Adenov F 40/41 PCR Stool Astrovirus (PCR) Stool Campylobacter PCR Stool Cryptosporidium PCR Stl Sh Tox Pr E STEC PCR Stool E coli O157 PCR Stl Enterotoxigenic E PCR Stool EPEC (PCR) Stool EAEC (PCR) Stl E. histolytica PCR Stool Giardia Lamblia PCR Stl P. shigelloides PCR Stool Salmonella PCR Stool Sapovirus (PCR) Stl Shigella/EIEC PCR St Y.enterocolitica PCR Stool Vibrio (PCR) Stl Vibrio cholerae PCR Stl Norovirus GI/GII PCR COVID-19 (LAINE) (Negative) COVID-19 Clin Com Influenza Type A (ARELI) (Negative) Influenza Type B (ARELI) (Negative) Influenza A & B Note Radiology Impression Discussion of test interpretation with radiology: I have reviewed the radiologist's reading. External Record Review External record reviewed: Inpatient record, Office record, Outpatient record, Prior outpatient labs, Prior outpatient radiology, Primary care record and Outside ED record Tests considered The following testing was considered but not selected: As above Prescription Management I considered prescription management with: Other Social Determinants Patient?s care significantly limited by Social Determinants of Health including: Other Social Determinant of Health Discharge Plan Discharge Clinical Impression: Gastroenteritis Patient Disposition: Home, Self-Care Instructions: Acute Diarrhea (ED) Additional Instructions: Your blood work and urine are reassuring Please follow up with your primary care doctor Bring stool sample to the lab with labs slip If you develop abdominal pain, bloody or black stool, fever, you are unable to eat or drink please return to the emergency department Prescriptions: No Action metoprolol succinate 50 mg tablet extended release 24 hr 150 mg PO DAILY 90 Days Qty: 270 3RF pantoprazole [Protonix] 40 mg tablet,delayed release (DR/EC) 40 mg PO DAILY 90 Days Qty: 90 3RF benazepril 40 mg tablet 40 mg PO DAILY Qty: 90 1RF amlodipine 2.5 mg tablet 2.5 mg PO DAILY Qty: 30 2RF aspirin 81 mg tablet,delayed release (DR/EC) 81 mg PO DAILY multivitamin Tablet 1 tab PO DAILY cholecalciferol (vitamin D3) 50 mcg (2,000 unit) tablet 50 mcg PO DAILY fluticasone propionate 50 mcg/actuation spray,suspension 1 spray intranasal DAILY PRN (Reason: nasal congestion) Qty: 16 5RF Rx Instructions: administer into each nostril diphenhydramine HCl [Benadryl] 25 mg capsule 50 mg PO BEDTIME PRN ezetimibe 10 mg tablet 10 mg PO DAILY atorvastatin 80 mg tablet PO DAILY zolpidem 5 mg tablet 5 mg PO BEDTIME PRN (Reason: insomnia) 30 Days Qty: 30 1RF pyridoxine (vitamin B6) 50 mg tablet 50 mg PO DAILY 90 Days Qty: 90 1RF Referrals: Tha Adams MD [Primary Care Provider, Internal Medicine] - 1 week Interventions: ED Discharge Assessment Last Done: 03/13/25 14:19 Discharge Date/Time: 03/13/25 14:19 Print Language: Macedonian
[2025-03-13 11:26] LABS: MANUAL DIFF FLAG NO
[2025-03-13 11:35] LABS: Hematocrit 45.7 % (42.0-52.0); Hemoglobin 14.6 g/dl (14.0-18.0); Imm Gran Abs Auto 0.03 X10*3/uL (0.00-0.03); Imm Gran Pct Auto 0.4 % (0.0-0.4); Lymphocytes Absolute Auto 1.3 X10*3/uL (1.2-4.9); Mean Corpuscular HGB Conc 31.9 g/dl (31.0-36.0); Mean Corpuscular Hemoglobin 28.6 pg (27.0-33.0); Mean Corpuscular Volume 89.6 fL (80.0-98.0); NRBC Abs Auto 0.000 X10*3/uL (0.0-0.012); NRBC Pct Auto 0.0 /100WBC (0.0-0.2); Platelet Count 206 X10*3/uL (160-400); Red Blood Count 5.10 X10*6/uL (4.60-5.80); White Blood Count 8.5 X10*3/uL (4.8-10.8)
[2025-03-13 11:46] LABS: Alanine Aminotransferase 42 U/L (0-40); Albumin Level 4.4 g/dL (3.5-5.0); Alkaline Phosphatase 94 U/L (39-117); Anion Gap 12 (12-20); Aspartate Amino Transferase 40 U/L (5-37); Blood Urea Nitrogen 15 mg/dL (9-16); Calcium 9.2 mg/dL (8.4-10.2); Carbon Dioxide 25 mmol/L (22-29); Chloride 109 mmol/L (96-108); Creatinine Clr Calc Pharmacy 93.2; Estimated Glomerular Filt Rate > 60; Potassium 3.9 mmol/L (3.3-5.1); Sodium 142 mmol/L (135-145); Total Protein 7.2 g/dL (6.5-8.0)
[2025-03-13 11:56] LABS: COVID-19 Test Negative (Negative); IDNOW Serial# 55D5AD1C; IDNOW Serial# 58CA691E; Influenza B2 Negative (Negative)
[2025-03-13 13:31] LABS: Lipase 37 U/L (8-78); Magnesium 2.2 mg/dL (1.6-2.6)
[2025-03-13 13:40] LABS: Appearance Urine Clear; Glucose Urine UA Negative (Negative); PH 6.0 (5.0-9.0); Specific Gravity - Urine >= 1.030 (1.005-1.025)
--- NOTE | 2025-03-13 14:02 | PC.NURSE ---
Pt reports he is unable to provide another stool sample, cannot go at this time.
[2025-03-13 14:19] VITALS: BP 168/78; PULSE 96; RESP 18; TEMP 36.7; O2SAT 95
--- OUTSIDE RECORDS SUMMARY | 2025-03-13 15:15 | XMS_ITS | Clinical Summary ---
Author Organization [facility] Address [address] [place] [address] Care Team Providers Care Cutter Gas Name Role Phone Unavailable Primary Care Provider [...]
[2025-03-16 10:33] LABS: E. coli EAEC Not Detected (Not Detect.); E. coli EPEC Not Detected (Not Detect.); E. coli ETEC Not Detected (Not Detect.); E. coli STEC Not Detected (Not Detect.); Shigella sp./EIEC Not Detected (Not Detect.)
== END 2025-03-15 14:12 | disposition home or self-care (01) ==
LOC: HO.LAB 03-15 14:11
PROVIDERS: Nurse Practitioner Family; Emergency Provider Emergency Medicine; PCP Internal Medicine; Visit Provider Physician Assistant
DX: K52.9 Noninfective gastroenteritis and colitis, unspecified (principal); R11.2 Nausea with vomiting, unspecified
CPT/HCPCS: 80048; 80076; 81003; 83690; 83735; 85025; 87502; 87507; 87635; 99284

== ENCOUNTER 2025-03-23 06:01 | Outpatient (REF) | payer MEDICARE, OTHER, SELFPAY ==
--- OUTSIDE RECORDS SUMMARY | 2025-03-23 06:04 | XMS_ITS | Clinical Summary ---
Author Organization [facility] Address [address] [place] [address] Care Team Providers Care Transportation Maintenance Supervisor Name Role Phone Unavailable Primary Care Provider [...]
[2025-03-23 06:25] LABS: MANUAL DIFF FLAG NO
[2025-03-23 07:12] LABS: Hematocrit 47.3 % (42.0-52.0); Hemoglobin 14.8 g/dl (14.0-18.0); Imm Gran Abs Auto 0.03 X10*3/uL (0.00-0.03); Imm Gran Pct Auto 0.4 % (0.0-0.4); Lymphocytes Absolute Auto 1.2 X10*3/uL (1.2-4.9); Mean Corpuscular HGB Conc 31.3 g/dl (31.0-36.0); Mean Corpuscular Hemoglobin 28.6 pg (27.0-33.0); Mean Corpuscular Volume 91.3 fL (80.0-98.0); NRBC Abs Auto 0.000 X10*3/uL (0.0-0.012); NRBC Pct Auto 0.0 /100WBC (0.0-0.2); Platelet Count 162 X10*3/uL (160-400); Red Blood Count 5.18 X10*6/uL (4.60-5.80); White Blood Count 8.5 X10*3/uL (4.8-10.8)
[2025-03-23 07:47] LABS: Alanine Aminotransferase 49 U/L (0-40); Albumin Level 4.4 g/dL (3.5-5.0); Alkaline Phosphatase 97 U/L (39-117); Anion Gap 13 (12-20); Aspartate Amino Transferase 39 U/L (5-37); Blood Urea Nitrogen 16 mg/dL (9-16); Calcium 9.2 mg/dL (8.4-10.2); Carbon Dioxide 27 mmol/L (22-29); Chloride 104 mmol/L (96-108); Cholesterol 142 mg/dL (<200); Estimated Glomerular Filt Rate > 60; HDL Cholesterol 42 mg/dL (>40); Potassium 4.1 mmol/L (3.3-5.1); Sodium 140 mmol/L (135-145); Total Protein 7.1 g/dL (6.5-8.0); Triglycerides 160 mg/dL (<150)
[2025-03-23 08:36] LABS: Appearance Urine Clear; Glucose Urine UA Negative (Negative); PH 7.5 (5.0-9.0); Specific Gravity - Urine 1.015 (1.005-1.025)
== END 2025-03-23 06:02 | disposition home or self-care (01) ==
LOC: HO.LAB 06:01
PROVIDERS: PCP Internal Medicine; Visit Provider Internal Medicine
DX: R30.0 Dysuria (principal); E78.00 Pure hypercholesterolemia, unspecified; E55.9 Vitamin D deficiency, unspecified; D64.9 Anemia, unspecified
CPT/HCPCS: 36415; 80053; 80061; 81003; 82306; 84443; 85025

== ENCOUNTER 2025-03-24 09:46 | Outpatient (AMB) | payer MEDICARE, OTHER, SELFPAY ==
[2025-03-24 09:51] VITALS: BP 126/68; PULSE 79; O2SAT 94; BMI 36.0
--- NOTE | 2025-03-24 09:51 | MHC.PC.OV ---
Vital Signs 03/24/25 09:51 Height 5 ft 10 in Weight 251 lb 2 oz BMI 36.0 BP 126/68 Blood Pressure Location Lt brachial Position Sitting Pulse 79 Pulse Source Pulse Oximeter Pulse Oximetry (%) 94 Oxygen Delivery Method Room Air Intake Visit Reasons: Follow Up Pediatric Urologist Required: No Accompanied by: Self / Same As Patient Allergies ciprofloxacin (From CIPRO) Allergy (Severe, Verified 03/24/25 10:35) ERYTHEMA MULTIFORMA Sulfa (Sulfonamide Antibiotics) (SULFA (SULFONAMIDE ANTIBIOTICS)) Allergy (Intermediate, Verified 03/24/25 10:35) RASH amoxicillin Adverse Reaction (Severe, Verified 03/24/25 10:35) Swelling Medication List - Last Reconciled 03/24/25 by hTa Adams MD amlodipine 2.5 mg PO DAILY aspirin 81 mg PO DAILY atorvastatin mg PO DAILY benazepril 40 mg PO DAILY cholecalciferol (vitamin D3) 50 mcg PO DAILY diphenhydramine HCl (Benadryl) 50 mg PO BEDTIME PRN ezetimibe 10 mg PO DAILY fluticasone propionate 50 mcg/actuation 1 spray intranasal DAILY PRN gabapentin 300 mg PO BID metoprolol succinate ER 150 mg (3 x 50 mg) PO DAILY 90 days multivitamin 1 tab PO DAILY pantoprazole (Protonix) 40 mg PO DAILY 90 days pyridoxine (vitamin B6) 50 mg PO DAILY 90 days zolpidem 5 mg PO BEDTIME PRN 30 days Tobacco use date assessed: 03/24/25 Fall risk assessment: No Falls in past year Last assessed Fall Risk: 03/24/25 Dental Screening Dental Screen Date: 03/24/25 Did you have a dental visit in the last 12 months?: Yes Did you have a dental problem in the last 6 months where you did not have access to dental care?: No Was dental information given to patient?: Patient has dentist HPI Follow Up HPI Details Patient comes in today for his follow up visit States that he currently feels okay He went to the ER early last week for nausea, vomiting and diarrhea - work ups done at the ER were all negative except for Norovirus toxin Patient states that he was cleaning up his basement a couple of weeks ago and vacuumed up a lot of rat/mice droppings and forgot to clean out his vacuum airplane cleaner immediately after and he is concerned that he may have contracted something from the mice droppings that he was exposed to States that his GI symptoms have all since cleared up and he has not had any N/V/D for almost a week now He denies any fever, headaches or dizziness Denies any chest pains, no increased SOB Adds that he continues to experience persistent swelling of both lower legs and feet - notes that the swelling is already present when he wakes up in the morning and gets progressively worse as the day goes on He had his follow up labs done yesterday - to discuss his results [facility] Medical History Insomnia Obesity (BMI 30-39.9) Vaccine counseling Epidermoid cyst Smoker History of prostate cancer Vitamin D deficiency Osteoarthritis of right hip Lumbar degenerative disc disease GERD without esophagitis Impaired fasting glucose COPD (chronic obstructive pulmonary disease) Pure hypercholesterolemia Benign essential hypertension Coronary artery disease Surgical History History of bilateral cataract extraction History of lithotripsy History of angioplasty (~1995) History of prostatectomy Family History Father Lung cancer Mother Myocardial infarction CVD (cardiovascular disease) Social History Housing: House Alcohol intake: current Alcohol intake frequency: 0-2 drinks per day Patient Tobacco Use Status: Former Tobacco user Tobacco use type: Cigarette e-Cigarette/Vaping Use: Currently Using Second Hand Smoke Exposure: Yes Advance Directives Date on File: 02/01/25 service: No Current occupational status: retired Cognitive needs: No Hearing needs: No Vision needs: Yes Questionnaire PHQ-9 Over the last 2 weeks, how often have you been bothered by any of the following problems? 1. Little interest or pleasure in doing things: several days 2. Feeling down, depressed, or hopeless: several days 3. Trouble falling or staying asleep, or sleeping too much: several days 4. Feeling tired or having little energy: several days 5. Poor appetite or overeating: not at all 6. Feeling bad about yourself - or that you are a failure or have let yourself or your family down: not at all 7. Trouble concentrating on things, such as reading the newspaper or watching television: not at all 8. Moving or speaking so slowly that other people could have noticed. Or the opposite - being so fidgety or restless that you have been moving around a lot more than usual: not at all 9. Thoughts that you would be better off or of hurting yourself in some way: not at all Total score: 4 Depression Screening Interpretation: Positive Depression Screening Follow-up: Follow-up Visit Requested Depression Screening Done: Yes [id number] - PHQ-9 Billing: Yes Source: Developed by Drs. Venkata Hanson, Shala Burdick, Bladimir Mora and colleagues, with an educational iliana from [employer]. Thrive Questionnaire Date Thrive assessed: 03/24/25 I am a: Patient What is your living situation today?: I have a steady place to live Within the past 12 months, did the food you bought not last and you didn't have the money to get more?: Never true Within the past 12 months, did you worry whether your food would run out before you got money to buy more?: Never true Do you have trouble paying for medicines?: No Do you have trouble getting transportation to medical appointments?: No Do you have trouble paying your heating and electricity bill?: No Do you have trouble taking care of your child, family member or friend?: No Do you have trouble with day-to-day activities such as bathing, preparing meals, shopping, managing finances, etc.?: No Are you currently unemployed and looking for a job?: No Are you interested in more education?: No Please select the resources that you would like help with: None Currently or been in a relationship where the following occur: No concerns reported THRIVE Score: 0 AUDIT C Alcohol Use Questionnaire (AUDIT-C) 1. How often do you have a drink containing alcohol?: 2-4 times a month 2. How many drinks containing alcohol do you have on a typical day when you are drinking?: 1 or 2 3. How often do you have six or more drinks on one occasion?: Never Total Score: 2 Score Reviewed/Action Taken: Yes CHRISTINA-7 AMB Questionnaire CHRISTINA-7 Date CHRISTINA - 7 assessed: 03/24/25 Feeling nervous, anxious, or on edge: 0 = Not at all Not being able to stop or control worryin = Not at all Worrying too much about different things: 0 = Not at all Trouble relaxin = Not at all Being so restless that it is hard to sit still: 0 = Not at all Becoming easily annoyed or irritable: 0 = Not at all Feeling afraid as if something awful might happen: 0 = Not at all Total CHRISTINA-7 score (0-4 normal; 5-9 mild; 10-14 moderate; 15-21 severe): 0 Source: Developed by Drs. Venkata Hanson, Shala Burdick, Bladimir Mora and colleagues, with an educational iliana from [employer]. Review of Systems Const Denies chills, Denies fatigue, Denies fever(s) and Denies headache(s) ENT Denies dysphagia, Denies dizziness, Denies otalgia, Denies headache(s), Reports neck pain (on and off), Denies odynophagia and Denies sore throat Card Denies chest pain, Denies palpitations and Denies dyspnea Resp Denies chest congestion, Denies cough and Denies dyspnea GI Denies abdominal pain, Denies constipation, Denies dysphagia, Denies heartburn, Denies diarrhea, Denies nausea, Denies odynophagia and Denies vomiting Denies difficulty urinating, Denies dysuria, Reports nocturia, Reports urinary frequency and Reports urinary incontinence Musc Reports back pain (mild), Reports neck pain (on and off) and Reports numbness (on and off in the left arm) Skin/Breast Denies rash Neuro Denies dizziness, Denies headache(s) and Reports numbness (on and off in the left arm) Psych Reports anxiety Endo Denies fatigue and Denies palpitations Mehul/Lymph Details: (+) persistent bilateral lower extremity swelling, usually worse towards the end of the day Physical exam (Primary Care) Vital Signs: Last Vital Signs Pulse 79 03/24/25 09:51 BP 126/68 03/24/25 09:51 Pulse Ox 94 03/24/25 09:51 Oxygen Delivery Method Room Air 03/24/25 09:51 BMI result Body Mass Index 36.0 Tobacco/Smoking Status: Tobacco use Status Tobacco use date assessed 03/24/25 03/24/25 09:57 Patient Tobacco Use Status Former Tobacco user 03/24/25 09:57 Tobacco use type Cigarette 03/24/25 09:57 e-Cigarette/Vaping Use Currently Using 03/24/25 09:57 PHQ-9: PHQ-9 Score PHQ-9: Total score 4 03/24/25 14:25 Depression Screening Interpretation: Positive Depression Screening Follow-up: Follow-up Visit Requested Thrive Assessment: Date of Thrive Assessment Date Thrive assessed 03/24/25 03/24/25 09:57 Currently or been in a relationship where the following occur: No concerns reported Const General: no acute distress and alert HENMT Ears: TM's normal bilaterally and EAC's normal Throat: Yes posterior oropharynx normal and Yes tonsils normal (no TP congestion noted) Neck Neck: Yes supple and No lymphadenopathy Thyroid: Thyroid normal Resp Auscultation: clear to auscultation bilaterally, no rales and no wheezes Cardio Rate: regular rate Rhythm: regular rhythm Heart sounds: no murmurs GI Palpation (GI): Soft to palpation and nontender Auscultation: normal bowel sounds General: Yes no CVA tenderness Back/Spine/Pelvis Back: no CVA tenderness Cervical Spine: cervical muscular tenderness (especially on the left side) Thoracic/Lumbar Spine: lumbar spinal tenderness (mild) Skin Rashes: no rashes Extrem General: No clubbing, No cyanosis and Yes edema (2+ bipedal pitting edema noted) Results AMB Hemoglobin A1c AMB Hemoglobin A1c 6.0 % Last Edit by NANNETTE Wilson on 03/24/25 10:42 Results Reviewed Results Reviewed: Laboratory Last Values Hgb A1c (Clinic) 6.0 % (4.0-6.0) 03/24/25 10:42 Laboratory Tests 03/23/25 03/23/25 06:23 07:50 WBC 8.5 Hgb 14.8 Hct 47.3 Plt Count 162 Sodium 140 Potassium 4.1 Creatinine 0.82 Estimated GFR > 60 Fasting Glucose 107 H Calcium 9.2 AST 39 H ALT 49 H Triglycerides 160 H Cholesterol 142 LDL Cholesterol, Calc 68 HDL Cholesterol 42 25-OH Vitamin D Total 47.5 TSH 1.43 Ur Specific [place] 1.015 Urine Protein Negative Urine Glucose (UA) Negative Urine Blood Negative Urine Nitrite Negative Ur Leukocyte Esterase Negative Coding Level of Care Code Est Pt Level 4 (66479) Diagnoses Coronary artery disease involving [place] coronary artery of [place] heart without angina pectoris I25.10 Associated angina: without angina Coronary Disease-Associated Artery/Lesion type: [place] artery [place] vs. transplanted heart: [place] heart Pure hypercholesterolemia E78.00 Benign essential hypertension I10 Edema of both lower extremities R60.0 Carotid atherosclerosis, unspecified laterality I65.29 Laterality: unspecified laterality Chronic obstructive pulmonary disease, unspecified COPD type J44.9 COPD type: unspecified COPD Impaired fasting glucose R73.01 GERD without esophagitis K21.9 Zenker's (hypopharyngeal) diverticulum K22.5 Lumbar degenerative disc disease M51.36 Primary osteoarthritis of right hip M16.11 Osteoarthritis type: primary Vitamin D deficiency E55.9 History of prostate cancer Z85.46 Urinary incontinence, unspecified type R32 Urinary Incontinence type: unspecified incontinence Insomnia, unspecified type G47.00 Insomnia type: unspecified Smoker F17.200 Obesity (BMI 30-39.9) E66.9 Additional Codes PHQ-9 - 09771 - PHQ-9 Billing: Yes ([id number]) Assessment & Plan Assessment & Plan (1) Coronary artery disease: Comment: S/P [place], angioplasty and stent insertion in 1995 Code(s): I25.10 - Atherosclerotic heart disease of [place] coronary artery without angina pectoris Category: Medical Qualifiers: Associated angina: without angina Coronary Disease-Associated Artery/Lesion type: [place] artery [place] vs. transplanted heart: [place] heart Qualified Code(s): I25.10 - Atherosclerotic heart disease of [place] coronary artery without angina pectoris Plan: S/P [place], angioplasty and stent insertion in 1995 - patient currently remains asymptomatic (he has no acute anginal symptoms) Continue low dose Aspirin 81 mg QD and Metoprolol ER 150 mg QD Follow up with [facility]iology as scheduled - he is now seeing Dr. Mcgill at [facility] States that he had an echocardiogram done at [facility] last year - he was reportedly advised that aside from some calcifications on the aortic valve, his echocardiogram was grossly normal (2) Pure hypercholesterolemia: Code(s): E78.00 - Pure hypercholesterolemia, unspecified Category: Medical Plan: Results of his labs done yesterday reviewed and discussed with patient Reinforced low cholesterol diet Continue Atorvastatin 80 mg QD and Ezetimibe 10 mg QD Will recheck his labs and fasting lipids in 4 months for follow up (3) Benign essential hypertension: Code(s): I10 - Essential (primary) hypertension Category: Medical Plan: Reinforced low sodium diet - goal is systolic BP of at least 130 to 140 mm due to his cardiac history Continue Benazepril 40 mg QD and Metoprolol ER 150 mg (50 mg x 3 tablets) QD As he continues to complain of increased edema of both lower extremities often, will try getting him off Amlodipine 2.5 mg QD to see if his edema will resolve OFF Amlodipine Will start him instead on Hydralazine 25 mg BID to help keep his blood pressure controlled (4) Edema of both lower extremities: Code(s): R60.0 - Localized edema Category: Medical Plan: Will try to get patient OFF Amlodipine completely to see if his lower extremity edema will resolve or clear up If not, then depending on how his blood pressure does, we may need to start him back on Amlodipine at some point (5) Carotid atherosclerosis: Code(s): I65.29 - Occlusion and stenosis of unspecified carotid artery Category: Medical Qualifiers: Laterality: unspecified laterality Qualified Code(s): I65.29 - Occlusion and stenosis of unspecified carotid artery Plan: He was sent previously for bilateral carotid US for further evaluation, per patient's request (mostly due to his dentist telling him that there were calcifications seen in his neck on routine dental x-rays) but insurance declined to cover his procedure Patient currently has no acute symptoms related to carotid stenosis and he has no audible bruits noted on carotid exam (6) COPD (chronic obstructive pulmonary disease): Code(s): J44.9 - Chronic obstructive pulmonary disease, unspecified Category: Medical Qualifiers: COPD type: unspecified COPD Qualified Code(s): J44.9 - Chronic obstructive pulmonary disease, unspecified Plan: Controlled - patient has not really needed any inhalers for his breathing in a while now Reinforced again to patient the importance of complete smoking cessation, even though patient is now only smoking electronic cigarettes that has reportedly very little nicotine in them (7) Impaired fasting glucose: Code(s): R73.01 - Impaired fasting glucose Category: Medical Plan: His in-office HgbA1c today remains unchanged at 6.0%; HgbA1c was also at 6.0% a few months ago Reinforced low calorie/low carb diet;exercise as tolerated (8) GERD without esophagitis: Code(s): K21.9 - Gastro-esophageal reflux disease without esophagitis Category: Medical Plan: Dietary restrictions reinforced Continue Pantoprazole 40 mg QD (9) Zenker's (hypopharyngeal) diverticulum: Code(s): K22.5 - Diverticulum of esophagus, acquired Category: Medical Plan: His upper GI series done last year revealed (+) mild cricopharyngeal achalasia, tiny Zenker's diverticulum, mildly disorganized esophageal peristalsis and small type I hiatal hernia Reinforced dietary restrictions/modifications to help minimize his symptoms Follow up with GI as scheduled (10) Lumbar degenerative disc disease: Code(s): M51.36 - Other intervertebral disc degeneration, lumbar region Category: Medical Plan: Reinforced activity and weight-lifting restrictions to minimize aggravating his low back pain (11) Osteoarthritis of right hip: Code(s): M16.11 - Unilateral primary osteoarthritis, right hip Category: Medical Qualifiers: Osteoarthritis type: primary Qualified Code(s): M16.11 - Unilateral primary osteoarthritis, right hip Plan: He takes OTC Tylenol PRN with some relief of his symptoms Will consider referring him to orthopedics if his hip pain gets worse (12) Vitamin D deficiency: Code(s): E55.9 - Vitamin D deficiency, unspecified Category: Medical Plan: Continue Vitamin D3 1000 units QD (13) History of prostate cancer: Code(s): Z85.46 - Personal history of malignant neoplasm of prostate Category: Medical Plan: S/P prostatectomy in [place] years ago Follow up with urology as scheduled for continuing surveillance He was previously seeing urology in [place] but his doctor there retired recently and he is now seeing Dr. Jurado here locally (14) Urinary incontinence: Code(s): R32 - Unspecified urinary incontinence Category: Medical Qualifiers: Urinary Incontinence type: unspecified incontinence Qualified Code(s): R32 - Unspecified urinary incontinence Plan: Possible overflow incontinence in light of his recent recurrent suprapubic pressure - may be experiencing outlet obstruction although he had a prostatectomy done in the past He was started on a trial of Myrbetriq 25 mg Q HS but patient states that the Rx did not help and he stopped taking it after a while States that the higher dose of 50 mg was helping only slightly better and he also stopped taking it after a short trial He was started on Gemtesa 75 mg QD by urology but he never took it States that Dr. Jurado is considering doing a cystoscopy and inserting a bladder sling and he was scheduled for a sling procedure a few months ago but he ended up canceling the procedure when he contracted COVID and has not been able to reschedule since Follow up with urology as scheduled (15) Insomnia: Code(s): G47.00 - Insomnia, unspecified Category: Medical Qualifiers: Insomnia type: unspecified Qualified Code(s): G47.00 - Insomnia, unspecified Plan: Sleep hygiene reinforced Continue Zoplidem 5 mg Q HS PRN Patient has tried several OTC sleep aids for a while now without any relief (16) Smoker: Code(s): F17.200 - Nicotine dependence, unspecified, uncomplicated Category: Social Hx Plan: Patient is counseled again on complete smoking cessation - patient is now smoking electronic cigarettes exclusively and states that he is still working on quitting completely (17) Obesity (BMI 30-39.9): Code(s): E66.9 - Obesity, unspecified Category: Medical Plan: Reinforced diet/exercise as tolerated/lose weight Plan Follow up in 4 months Orders: Orders AMB Hemoglobin A1c Today Z13.9 - Encounter for screening, unspecified Hemoglobin A1c 4 Months R73.01 - Impaired fasting glucose Lipid Panel 4 Months E78.00 - Pure hypercholesterolemia, unspecified Vitamin D 25-OH Total 4 Months E55.9 - Vitamin D deficiency, unspecified NT Pro B Type Natriuretic Pept 4 Months R06.09 - Other forms of dyspnea, R60.0 - Localized edema Complete Blood Count Auto Diff 4 Months D64.9 - Anemia, unspecified Comprehensive [place]. Panel Fast 4 Months E78.00 - Pure hypercholesterolemia, unspecified UA CC w/rflx Micro + Cult 4 Months R30.0 - Dysuria Medications: New hydralazine 25 mg PO BID 60 tabs 3RF 30 days Discontinued amlodipine Discontinued Reason: Doctor's Order 2.5 mg PO DAILY 30 tabs 2RF
== END 2025-03-24 10:56 | disposition home or self-care (01) ==
LOC: HO.HMCH 09:46
PROVIDERS: PCP Internal Medicine; Visit Provider Internal Medicine
DX: J44.9 Chronic obstructive pulmonary disease, unspecified (principal); I25.10 Atherosclerotic heart disease of native coronary artery without angina pectoris; E78.00 Pure hypercholesterolemia, unspecified; I10 Essential (primary) hypertension; R60.0 Localized edema; I65.29 Occlusion and stenosis of unspecified carotid artery; R73.01 Impaired fasting glucose; K21.9 Gastro-esophageal reflux disease without esophagitis; K22.5 Diverticulum of esophagus, acquired; M51.369 Other intervertebral disc degeneration, lumbar region without mention of lumbar back pain or lower extremity pain; M16.11 Unilateral primary osteoarthritis, right hip; E55.9 Vitamin D deficiency, unspecified; Z85.46 Personal history of malignant neoplasm of prostate; R32 Unspecified urinary incontinence; G47.00 Insomnia, unspecified; F17.200 Nicotine dependence, unspecified, uncomplicated; E66.9 Obesity, unspecified; Z13.9 Encounter for screening, unspecified

== ENCOUNTER → 2025-03-24 09:46 | Outpatient (BNVA) | payer MEDICARE, OTHER, SELFPAY | PROVIDERS: PCP Internal Medicine; Visit Provider Internal Medicine | DX: Z09 Encounter for follow-up examination after completed treatment for conditions other than malignant neoplasm (principal); I25.10 Atherosclerotic heart disease of native coronary artery without angina pectoris; E78.00 Pure hypercholesterolemia, unspecified; I10 Essential (primary) hypertension; R60.0 Localized edema; I65.29 Occlusion and stenosis of unspecified carotid artery; J44.9 Chronic obstructive pulmonary disease, unspecified; R73.01 Impaired fasting glucose; K21.9 Gastro-esophageal reflux disease without esophagitis; K22.5 Diverticulum of esophagus, acquired; M51.360 Other intervertebral disc degeneration, lumbar region with discogenic back pain only; M16.11 Unilateral primary osteoarthritis, right hip; E55.9 Vitamin D deficiency, unspecified; R32 Unspecified urinary incontinence; G47.00 Insomnia, unspecified; F17.200 Nicotine dependence, unspecified, uncomplicated; Z85.46 Personal history of malignant neoplasm of prostate; Z13.31 Encounter for screening for depression; Z13.39 Encounter for screening examination for other mental health and behavioral disorders | CPT/HCPCS: 83036; 96127; 99212 ==